=== PATIENT | male | born 1945 | race Caucasian/White ===

== ENCOUNTER 2020-03-25 08:23 | Emergency (ER) | payer MEDICARE, SELFPAY ==
--- NOTE | ~2020-03-25 | XR_ITS ---
XR hand RT min 3V DATE: 03/25/2020 08:54 INDICATION: Injury at third through fifth digits. Right hand swelling, bruising TECHNIQUE: 3 views COMPARISON: None FINDINGS: There is a slightly dorsally displaced linear oblique fracture of the proximal shaft of the fourth metacarpal bone. No other fracture or any dislocation is evident. IMPRESSION: Fracture of proximal shaft of fourth metacarpal bone Reviewed, dictated and finalized at location A.
[2020-03-25 08:27] VITALS: BP 175/69; PULSE 79; RESP 18; TEMP 36.2; O2SAT 100
--- NOTE | 2020-03-25 10:08 | ED.UPPEXIN ---
HPI - Extremity Injury (Upper) General Chief Complaint: Extremity Injury, Upper Stated Complaint: finger injury Time Seen by Provider: 03/25/20 08:38 History of Present Illness HPI narrative: Patient is a 74-year-old male who presents the ER with right hand pain. States he was walking when he tripped and fell with an outstretched hand. His fingers got caught and he thinks he hyperextended against a piece of furniture. This occurred last night. He did not strike his head or lose consciousness. He had increased discomfort in his fourth finger today so he came in for further evaluation. No new numbness or tingling. Range of motion intact. Related Data Allergies Allergy/AdvReac Type Severity Reaction Status Date / Time Penicillins Allergy Mild Unknown Verified 03/25/20 10:10 amoxicillin Allergy Unknown SOB Verified 03/25/20 10:10 clavulanic acid Allergy Unknown SOB Verified 03/25/20 10:10 Cat Dander Allergy Mild Sneezing Uncoded 03/25/20 10:10 Dust Allergy Mild Sneezing Uncoded 03/25/20 10:10 POLLENS Allergy Mild Sneezing Uncoded 03/25/20 10:10 SHELLFISH Allergy Mild Unknown Uncoded 03/25/20 10:10 Review of Systems Review of Systems: All systems reviewed & are unremarkable except as noted in HPI and below Musculoskeletal: Musculoskeletal: Reports arthralgias and Reports joint swelling PMFSH Past Medical History Medical History (Updated 03/25/20 @ 10:12 by Natan Carl MD) Hyperlipidemia Hypertension Surgical History Surgical History (Updated 03/25/20 @ 10:10 by Natan Carl MD) H/O bilateral hip replacements Hx of tonsillectomy S/P trigger finger release Social History Social History (Updated 03/25/20 @ 10:10 by Natan Carl MD) Smoking status: Never smoker Gender identity (if verbalized by the patient): Male Exam Narrative: Exam Narrative: GENERAL: Well-appearing, well-nourished, and in no acute distress. HEAD: Normocephalic, atraumatic. EXTREMITIES: Focused exam of the right hand shows bruising over the proximal phalanx of the fourth digit with swelling at the PIP. Digits 3 through 5 have normal range of motion at the DIP/PIP/MCP with isolation of each joint. There is mild tenderness over the proximal hand dorsally. Normal radial pulse. SKIN: Warm, dry, no rash. NEURO: No focal deficits. Alert and oriented x3. PSYCH: Normal mood and affect. Course Course Emergency Course: Patient informed of results. Discharge home. Will give name of hand surgery in the nursing but he has a hand surgeon he sees across [place]. He has been provided with a copy of his x-rays. Vital Signs Vital signs: Vital Signs Temperature 97.1 F L 03/25/20 08:27 Pulse Rate 79 03/25/20 08:27 Respiratory Rate 18 03/25/20 08:27 Blood Pressure 175/69 H 03/25/20 08:27 Pulse Oximetry 100 03/25/20 08:27 Temperature 97.1 F L 03/25/20 08:27 Pulse Rate 79 03/25/20 08:27 Respiratory Rate 18 03/25/20 08:27 Blood Pressure 175/69 H 03/25/20 08:27 Pulse Oximetry 100 03/25/20 08:27 Procedures Orthopedic Splinting/Casting Injury #1: Splinting/Casting Date: 03/25/20 Splinting/Casting Time: 10:11 Side: right Upper Extremity Injury Location: wrist Upper Extremity Immobilizer: ulnar gutter Splint: customized in ED OCL: ulnar gutter Pre-Procedure Neuro Vascular Exam: normal Post-Procedure Neuro Vascular Exam: normal Additional Comments: Applied by the office automation technician. MDM - Extremity Injury (Upper) Imaging Data Radiologist's impression: ITS Impressions Hand X-Ray 03/25/20 08:57 IMPRESSION: Fracture of proximal shaft of fourth metacarpal bone Discharge Plan Discharge Clinical Impression: Fracture of metacarpal Patient Disposition: Home, Self-Care Condition: Stable Instructions: Hand Fracture (ED) Additional Instructions: Return the ER if you suffer new injury, you have chest pain or shortness of breat
[2020-03-25 10:30] VITALS: BP 165/76; PULSE 66; RESP 16; O2SAT 98
== END 2020-03-25 10:30 | disposition home or self-care (01) ==
PROVIDERS: Emergency Provider Emergency Medicine
DX: S62.324A Displaced fracture of shaft of fourth metacarpal bone, right hand, initial encounter for closed fracture (principal); E78.5 Hyperlipidemia, unspecified; I10 Essential (primary) hypertension; Z96.643 Presence of artificial hip joint, bilateral; W01.190A Fall on same level from slipping, tripping and stumbling with subsequent striking against furniture, initial encounter
CPT/HCPCS: 29125; 73130; 99284; A4565

== ENCOUNTER 2021-06-20 11:18 | Emergency (ER) | payer MEDICARE, SELFPAY ==
[2021-06-20 11:27] VITALS: BP 170/73; PULSE 67; RESP 16; TEMP 36.6; O2SAT 99
--- NOTE | 2021-06-20 12:12 | ED.SOB ---
HPI - SOB/Dyspnea General Chief Complaint: Shortness of Breath/Dyspnea Stated Complaint: SOB/TIRED Source: patient and RN notes reviewed Mode of arrival: ambulatory History of Present Illness HPI Narrative: This is a 75-year-old male that presented to our urgent care for Covid testing and also complaints of shortness of breath along with fatigue and nasal congestion. According to patient he went to a wedding out of town on Friday he is experienced shortness of air breath and fatigue while he was out of town. Patient has been fully vaccinated and notes that he has not experience short of breath since he have return. He believe that his shortness of breath could have been caused by the environment. The patient denies SOB, CP, palpitation, extremity numbness, lightheadedness, dizziness, constipation, diarrhea, chills, or fever. Related Data Home Medications Medication Instructions Recorded Confirmed amlodipine 06/20/21 atorvastatin 06/20/21 Allergies Allergy/AdvReac Type Severity Reaction Status Date / Time Penicillins Allergy Mild Unknown Verified 03/25/20 10:10 amoxicillin Allergy Unknown SOB Verified 03/25/20 10:10 clavulanic acid Allergy Unknown SOB Verified 03/25/20 10:10 Cat Dander Allergy Mild Sneezing Uncoded 03/25/20 10:10 Dust Allergy Mild Sneezing Uncoded 03/25/20 10:10 POLLENS Allergy Mild Sneezing Uncoded 03/25/20 10:10 SHELLFISH Allergy Mild Unknown Uncoded 03/25/20 10:10 Review of Systems Review of Systems: A 14 organ system Review of Systems was performed and pertinent positives included in the HPI, otherwise remaining ROS is negative. [facility] Past Medical History Medical History (Updated 06/20/21 @ 12:12 by LUIS James) Hyperlipidemia Hypertension Surgical History Surgical History (Updated 03/25/20 @ 10:10 by Natan Carl MD) H/O bilateral hip replacements Hx of tonsillectomy S/P trigger finger release Family History Family History (Updated 06/20/21 @ 12:15 by LUIS James) Other Family history non-contributory Social History Social History (Updated 03/25/20 @ 10:10 by Natan Carl MD) Smoking status: Never smoker Gender identity (if verbalized by the patient): Male Exam Narrative: GENERAL: This is a well-nourished, well-developed patient, in no apparent distress. HEAD: normocephalic, atraumatic. EYES: PERRL. Sclera clear/white. Vision is grossly intact. EARS: External ears normal, auditory canals clear and without drainage, TMs normal without perforation. Hearing grossly intact. NOSE: External nose normal with no obvious nasal discharge, nares without redness, no rhinorrhea. THROAT: Mucous membranes moist, posterior pharynx clear. NECK: Neck supple, non-tender without lymphadenopathy, masses or thyromegaly. CARDIOVASCULAR: Regular rate and rhythm without murmurs, gallops, or rubs. RESPIRATORY: Clear to auscultation. Breath sounds equal bilaterally. No wheezes, rales, or rhonchi. GASTROINTESTINAL: Abdomen soft, non-tender, nondistended. Bowel sounds are active. No hepato-splenomegaly, or palpable masses. No guarding. SKIN: warm, intact with no suspicious lesions or rash, good texture and turgor. NEURO: awake, alert, and oriented to person, place and time. There were no obvious focal neurologic abnormalities. Steady gait EXTREMITIES: Normal range of motion. No edema. No calf tenderness. Negative Homans sign bilaterally. BACK: Nontender without deformity or crepitance. No flank tenderness. Course Course Emergency Course: Patient Covid negative discharged with albuterol and Sudafed for congestion Vital Signs Vital signs: Vital Signs Temperature 97.8 F 06/20/21 11:27 Pulse Rate 67 06/20/21 11:27 Respiratory Rate 16 06/20/21 11:27 Blood Pressure 170/73 H 06/20/21 11:27 Pulse Oximetry 99 06/20/21 11:27 Temperature 97.8 F 06/20/21 11:27 Pulse Rate 67 06/20/21 11:27 Respiratory Rate 16 06/20/21 11:27 Blood Pr
== END 2021-06-20 12:19 | disposition home or self-care (01) ==
PROVIDERS: Emergency Provider Nurse Practitioner
DX: T78.40XA Allergy, unspecified, initial encounter (principal); Z20.822 Contact with and (suspected) exposure to COVID-19; E78.5 Hyperlipidemia, unspecified; I10 Essential (primary) hypertension; Z96.643 Presence of artificial hip joint, bilateral
CPT/HCPCS: 87426; 99213; C9803; G0463

== ENCOUNTER 2023-06-27 08:08 | Emergency (ER) | payer MEDICARE, SELFPAY ==
--- NOTE | 2023-06-27 08:19 | ED.EXTPRO ---
HPI - Extremity Problem General Chief complaint: Extremity Problem,Nontraumatic Stated complaint: POCKET OF FLUID ON ANKLE Time Seen by Provider: 06/27/23 08:21 Source: patient Mode of arrival: ambulatory Limitations: no limitations History of Present Illness HPI Narrative: 77-year-old male presented for complaint of ?pocket of fluid? to the left inner ankle. First noticed yesterday. Unsure of how he developed a blister, he denies known injury, friction, or insect bite, or rash surrounding the site. Denies pain, itching, or drainage from the site. He denies lower extremity edema. Denies any other sites of skin concerns. Endorses history of chronically dry skin and uses Cerave lotion twice daily. He has not applied anything else to the site. Scheduled with pcp in 3 days. Related Data Home Medications Medication Instructions Recorded Confirmed amlodipine 5 mg tablet 5 mg PO DAILY 06/20/21 06/27/23 atorvastatin 40 mg tablet 40 mg PO DAILY 06/20/21 06/27/23 fluticasone propionate 50 50 spray intranasal BID 06/27/23 06/27/23 mcg/actuation nasal spray,suspension Allergies Allergy/AdvReac Type Severity Reaction Status Date / Time Penicillins Allergy Mild Unknown Verified 06/27/23 08:17 amoxicillin Allergy Unknown SOB Verified 06/27/23 08:17 clavulanic acid Allergy Unknown SOB Verified 06/27/23 08:17 Cat Dander Allergy Mild Sneezing Uncoded 06/27/23 08:17 Dust Allergy Mild Sneezing Uncoded 06/27/23 08:17 POLLENS Allergy Mild Sneezing Uncoded 06/27/23 08:17 SHELLFISH Allergy Mild Unknown Uncoded 06/27/23 08:17 Review of Systems Review of Systems: CONSTITUTIONAL: Denies body aches, fever, chills, or sweats. EYES: Denies visual changes, redness, or discharge. ENT: Denies rhinorrhea, congestion CARDIOVASCULAR: Denies chest pain, palpitations, or edema. RESPIRATORY: Denies cough or dyspnea. GASTROINTESTINAL: Denies abdominal pain, nausea, vomiting, or diarrhea. SKIN: reports blister to left ankle MUSCULOSKELETAL: Denies back pain, joint pain, or myalgia. NEUROLOGIC: Denies headache, numbness, tingling, or weakness. FOR[facility]LY [facility], [facility] Past Medical History Medical History Hyperlipidemia Hypertension Surgical History Surgical History H/O bilateral hip replacements Hx of tonsillectomy S/P trigger finger release Family History Family History Other Family history non-contributory Social History Social History Smoking status: Never smoker Gender identity (if verbalized by the patient): Male Comments At time of signature, I have reviewed and agree with nursing past medical, surgical, social and family history unless otherwise noted. Please see nursing chart for further information. There is no relevant family history pertinent to the presenting complaint Exam Narrative: GENERAL: Well-appearing HEAD: Normocephalic, atraumatic. EYES: conjunctivae clear, and EOMI. ENT: Mucous membranes moist. Oropharynx without edema, erythema or lesions. NECK: Supple. No lymphadenopathy CHEST: Clear to auscultation. HEART: Regular rate and rhythm. SKIN: Warm, dry. left medial ankle with 4cmx2.5cm fluid filled bulla, skin intact, no drainage, no surrounding erythema or rash; no purulence or induration; nontender. No swelling to ankles. NEURO: Alert and oriented x3. Course Course Emergency Course: Patient is aware of diagnosis, understands and agrees to treatment plan. Anticipatory guidance given. Patient agrees to follow-up as directed and is aware of reasons to seek care at the emergency department. Portions of this record may have been created with voice recognition software Level of Care: Express Care Visit Vital Signs Vital signs: Reviewed MDM - Extremity (Nontraumatic) MDM Narrative
[2023-06-27 08:21] VITALS: BP 127/70; PULSE 87; RESP 16; TEMP 36.2; O2SAT 97
== END 2023-06-27 08:48 | disposition home or self-care (01) ==
PROVIDERS: Emergency Provider Nurse Practitioner Family
DX: R23.8 Other skin changes (principal); E78.5 Hyperlipidemia, unspecified; I10 Essential (primary) hypertension; Z96.643 Presence of artificial hip joint, bilateral
CPT/HCPCS: 99213; G0463

== ENCOUNTER 2023-11-13 08:21 | Emergency (ER) | payer MEDICARE, SELFPAY ==
--- NOTE | ~2023-11-13 | XR_ITS ---
XR knee LT 3V 11/13/2023 09:35 Indication: Left knee pain Procedure: 3 views left knee Comparison: No prior studies for comparison. Findings: There is moderate tricompartment osteoarthritis. There is chondrocalcinosis. Small joint ef fusion. No fracture or traumatic malalignment. There are loose bodies posterior to the joint space. S mall osteochondral defect lateral tibial plateau. Small lytic defect medial aspect on the femur on th e patellar view involving the cortex. Impression: 1: Moderate osteoarthritis of the left knee. 2: Small osteochondral defect lateral tibial plateau. 3: Chondrocalcinosis. 4: Small lytic defects medial aspect of the femur seen on the patellar view. Consider myeloma and me tastatic disease in the appropriate clinical setting. Reviewed, dictated and finalized at location L. REEL CUTTER Impression: 1: Moderate osteoarthritis of the left knee. 2: Small osteochondral defect lateral tibial plateau. 3: Chondrocalcinosis. 4: Small lytic defects medial aspect of the femur seen on the patellar view. C onsider myeloma and metastatic disease in the appropriate clinical setting.
--- NOTE | 2023-11-13 08:24 | ED.GENADULT ---
HPI - General Adult General Chief complaint: Extremity Problem,Nontraumatic Stated complaint: Leg Pain Time Seen by Provider: 11/13/23 09:06 Source: patient, RN notes reviewed and old records reviewed Mode of arrival: ambulatory Limitations: no limitations History of Present Illness HPI narrative: 78-year-old male presents to the [facility] with complaints of leg pain. Patient reports pain to the lateral and anterior portion of the knee, radiating up his leg and down his leg. Patient reports he did have back pain on the left side as well. Was lifting and walking on the , 2 days ago. Denies any significant back pain currently. Is using a walker states he does not have issues walking but is using it just for extra support so he does not fall. Patient is concerned that it is due to his Cipro he took for a sinus infection, Patient was prescribed Cipro on the 29 of October by [facility] nose [facility] throat due to a prolonged sinus infection. Patient has full range of motion of the knee, ankle. No foot drop noted. No Achilles tendon tenderness. No swelling noted. Tender palpation to the lateral aspect. Patient denies any trauma No erythema, ecchymosis or swelling noted. Patient states that he tried calling his primary care provider at [facility], was instructed to go to their ortho clinic but states he came here because it was closer any does not want [place] the bridge. Treatments prior to arrival: none Related Data Home Medications Medication Instructions Recorded Confirmed amlodipine 5 mg tablet 5 mg PO DAILY 06/20/21 11/13/23 atorvastatin 40 mg tablet 40 mg PO DAILY 06/20/21 11/13/23 fluticasone propionate 50 50 spray intranasal BID 06/27/23 11/13/23 mcg/actuation nasal spray,suspension Allergies Allergy/AdvReac Type Severity Reaction Status Date / Time Penicillins Allergy Mild Unknown Verified 11/13/23 10:22 amoxicillin Allergy Unknown SOB Verified 11/13/23 10:22 clavulanic acid Allergy Unknown SOB Verified 11/13/23 10:22 ciprofloxacin AdvReac Joint Pain Verified 11/13/23 10:22 Cat Dander Allergy Mild Sneezing Uncoded 11/13/23 10:22 Dust Allergy Mild Sneezing Uncoded 11/13/23 10:22 POLLENS Allergy Mild Sneezing Uncoded 11/13/23 10:22 SHELLFISH Allergy Mild Unknown Uncoded 01/25/24 10:22 Review of Systems Review of Systems: All systems reviewed & are unremarkable except as noted in HPI and below Constitutional: Constitutional: Reports no additional constitutional complaints Eyes: Eyes: Reports no additional eye complaints ENT: Reports system reviewed and no additional complaints, except as documented Cardiovascular: Cardiovascular: Reports no additional cardiovascular complaints, Denies chest pain and Denies dyspnea Respiratory: Respiratory: Reports no additional respiratory complaints, Denies chest congestion, Denies cough and Denies dyspnea Gastrointestinal: Gastrointestinal: Reports no additional gastrointestinal complaints, Denies abdominal pain, Denies nausea and Denies vomiting Musculoskeletal: Musculoskeletal: Reports as per HPI, Reports arthralgias, Denies joint swelling, Denies limited range of motion, Denies muscle weakness and Denies numbness Integumentary/Breasts: Skin/Breast: Reports system reviewed and no additional complaints, except as docu Neurologic: Reports system reviewed and no additional complaints, except as documented Psychiatric: Psychiatric: Reports no additional psychiatric complaints Allergic/Immunologic: Allergic/Immunologic: Reports no additional allergic/immunologic complaints PMFSH Past Medical History Medical History Hyperlipidemia Hypertension Surgical History Surgical History H/O bilateral hip replacements Hx of tonsillectomy S/P trigger finger release Family History Family History Other Family history non-contributo
[2023-11-13 08:58] VITALS: BP 154/77; PULSE 75; RESP 16; TEMP 36.5; O2SAT 98
== END 2023-11-13 10:19 | disposition home or self-care (01) ==
PROVIDERS: Emergency Provider Nurse Practitioner
DX: M17.12 Unilateral primary osteoarthritis, left knee (principal); M11.262 Other chondrocalcinosis, left knee; E78.5 Hyperlipidemia, unspecified; I10 Essential (primary) hypertension
CPT/HCPCS: 73562; 99213; G0463

== ENCOUNTER → 2023-11-24 09:01 | Outpatient (CLI) | payer MEDICARE, SELFPAY ==
--- NOTE | ~2023-11-24 | MR_ITS ---
EXAMINATION: MR knee LT wo con DATE: 11/24/2023 09:43 INDICATION: Left knee pain TECHNIQUE: Magnetic resonance imaging (MRI) of the left knee was performed without intravenous contra st. Sequences included coronal PD-weighted FSE, coronal PD-weighted FS FSE, sagittal T2-weighted FSE , sagittal PD-weighted FS FSE and axial PD weighted fat saturated FSE. COMPARISON: None. FINDINGS: Medial compartment: With medial extrusion of the medial meniscal body. Complex medial meniscal tear at the posterior root and lateral side of the posterior horn of the medial meniscus. There appears be a small meniscal fl ap extending superiorly from the region of the posterior root. Partial-thickness chondral ulceration with mild loss of cartilage thickness and chondral surface regularity along the medial tibial plateau and along the lateral margin of the anterior weightbearing medial femoral condyle. Lateral compartment: There is lateral extrusion of the lateral meniscal body. There is a complex tear involving the executive vice president of sales ior horn and posterior body of the lateral meniscus which includes a longitudinal tear plane extendin g to the inferior articular surface and with a macerated appearance at the junction of the body and p osterior horn. . Near full-thickness chondral ulceration with at the posterior central aspect of the lateral tibial plateau with underlying marrow edema and 12 x 11 x 10 mm subchondral cystlike change. Mild partial-thickness cartilage loss along the anterior weightbearing lateral femoral condyle. There is a small partial-thickness chondral fissure at the lateral margin of the posterior weightbearing l ateral femoral condyle. Patellofemoral compartment: Deep chondral fissure with underlying subarticular cystlike change at the superolateral aspect of the medial facet near the apical ridge. There is partial thickness chondral ulceration and deep fissurin g with additional scattered reticular edema-like and cystlike changes at the central to lateral aspec t of the lateral patellar facet. Trochlear cartilage is relatively preserved. Ligaments and tendons: Anterior and posterior cruciate ligaments are normal. The medial collateral ligament and fibular he ateral ligament complex are normal. Mild tendinopathy at the distal quadriceps tendon. The patellar t endon is normal. Mild tendinopathy and longitudinal split tearing at the distal semimembranosus tendo n. The visualized medial and lateral hamstring tendons as well as the iliotibial band are otherwise n ormal. Fluid: Small joint effusion at the lateral gutter of the suprapatellar pouch. There is also mild scattered s ynovitis. There is a small collection of fluid situated between the anteromedial margin of the semime mbranosus tendon and deep to the pes anserinus. There are few small loose bodies within this fluid co llection is most likely ganglion cyst although differential would include less likely pes anserinus b ursitis. No intra-articular loose osteochondral bodies identified. Osseous/other: Bone alignment is normal. No fracture or pathologic marrow replacing process. IMPRESSION: 1. Complex tears of the posterior horns of both the medial and lateral menisci. 2. Tricompartmental osteoarthritis at the left knee, mild to moderate severity in the medial compartm ent and mild in the lateral and patellofemoral compartments, each with regions of high-grade chondrom alacia. 3. Mild tendinopathy and longitudinal split tearing of the distal semimembranosus tendon. 4. Mild distal quadriceps tendinopathy. Reviewed, dictated and finalized at location A. STATION OPERATOR
== END ==
PROVIDERS: PCP Family Medicine; Visit Provider Orthopaedic Surgery
DX: M53.3 Sacrococcygeal disorders, not elsewhere classified (principal); M17.12 Unilateral primary osteoarthritis, left knee; S83.272A Complex tear of lateral meniscus, current injury, left knee, initial encounter; S83.232A Complex tear of medial meniscus, current injury, left knee, initial encounter; X58.XXXA Exposure to other specified factors, initial encounter
CPT/HCPCS: 73721

== ENCOUNTER 2024-01-14 14:13 | Outpatient (CLI) | payer MEDICARE, SELFPAY ==
[2024-01-14 19:01] LABS: Alanine Aminotransferase 41 U/L (6-50); Alkaline Phosphatase 81 U/L (38-126); Anion Gap 5 mmol/L (4-12); Aspartate Amino Transferase 51 U/L (17-59); Bilirubin,Total 1.4 mg/dL (0.2-1.3); Blood Urea Nitrogen 24 mg/dL (9-20); Calcium 9.6 mg/dL (8.4-10.2); Carbon Dioxide 30 mmol/L (22-30); Chloride 104 mmol/L (98-107); Estimated Glomerular Filt Rate > 60; Glucose 98 mg/dL (65-110); Potassium 4.4 mmol/L (3.4-5.0); Sodium 139 mmol/L (137-145)
== END 2024-01-14 14:14 | disposition home or self-care (01) ==
LOC: ANHGOSHLAB 14:15
PROVIDERS: PCP Family Medicine; Visit Provider Family Medicine
DX: E55.9 Vitamin D deficiency, unspecified (principal); I10 Essential (primary) hypertension
CPT/HCPCS: 36415; 80053; 82306

== ENCOUNTER 2024-04-05 20:07 | Emergency (ER) | payer MEDICARE, SELFPAY ==
--- NOTE | ~2024-04-05 | XR_ITS ---
EXAM: XR knee RT min 4V DATE: 04/05/2024 21:03 HISTORY: Pain, swelling POSTERIOR RIGHT KNEE . COMPARISON: None available. FINDINGS: Decreased mineralization. No fracture or dislocation. No lytic or blastic lesion. 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 No erosion or periosteal lisa nge. Soft tissues within normal limits. IMPRESSION: No acute osseous finding in the right knee. Reviewed, dictated and finalized at location K.
[2024-04-05 20:26] VITALS: BP 166/77; PULSE 84; RESP 15; TEMP 36.5; O2SAT 98
--- NOTE | 2024-04-05 23:04 | ED.EXTPRO ---
HPI - Extremity Problem General Chief complaint: Extremity Problem,Nontraumatic Stated complaint: hamstring pain, hx of sciatica Time Seen by Provider: 04/05/24 22:16 Source: patient Mode of arrival: ambulatory Limitations: no limitations History of Present Illness HPI Narrative: This is a 78 year old male that presents to the ER for right knee pain. Ongoing over the last month. No recent injury or trauma. Pain is worse with ambulation and relieved with rest. Reports he is currently trying to get referral to an orthopedics doctor for further care. Denies fever, erythema, edema, decreased ROM or numbness. Related Data Home Medications Medication Instructions Recorded Confirmed amlodipine 5 mg tablet 5 mg PO DAILY 06/20/21 01/14/24 fluticasone propionate 50 50 spray intranasal BID 06/27/23 01/14/24 mcg/actuation nasal spray,suspension cholecalciferol (vitamin D3) 125 125 mcg PO DAILY 11/18/23 01/14/24 mcg (5,000 unit) capsule levocetirizine 5 mg tablet 5 mg PO DAILY 11/18/23 01/14/24 pclnrpka-vuw-igqve acid 0.4 1 tablet PO DAILY 11/18/23 01/14/24 mg-lycopene 300 mcg-lutein 250 mcg tablet (Centrum Silver) polyethylene glycol 3350 17 17 g PO DAILY 11/18/23 01/14/24 gram/dose oral powder (Miralax) turmeric root extract 500 mg 500 mg PO DAILY 11/18/23 01/14/24 capsule atorvastatin 40 mg tablet 40 mg PO QHS 01/14/24 01/14/24 testosterone cypionate 200 mg/mL 100 mg IM WEEKLY 01/14/24 01/14/24 intramuscular oil Allergies Allergy/AdvReac Type Severity Reaction Status Date / Time Penicillins Allergy Mild Unknown Verified 04/05/24 20:09 amoxicillin Allergy Unknown SOB Verified 04/05/24 20:09 cat dander Allergy Unknown Unknown Verified 04/05/24 20:09 clavulanic acid Allergy Unknown SOB Verified 04/05/24 20:09 house dust Allergy Unknown Unknown Verified 04/05/24 20:09 pollen extracts Allergy Unknown Unknown Verified 04/05/24 20:09 shellfish derived Allergy Unknown Unknown Verified 04/05/24 20:09 ciprofloxacin AdvReac Joint Pain Verified 04/05/24 20:09 Review of Systems Review of Systems: CONSTITUTIONAL: Denies fever SKIN: Denies rash MUSCULOSKELETAL: Reports joint pain, and myalgia. NEUROLOGIC: Denies numbness, or weakness. All systems reviewed & are unremarkable except as noted in HPI and below PMFSH Past Medical History Medical History Allergic rhinitis Chronic eczematous otitis externa of left ear Chronic venous insufficiency of lower extremity Hyperlipidemia Hypertension Hypogonadism in male Osteoarthritis Vitamin D deficiency Surgical History Surgical History History of cholecystectomy (~2017) History of right hip replacement (~2016) History of total left hip replacement (~2014) Hx of tonsillectomy (~1950) S/P trigger finger release b/l multiple - 2017, 2018 Family History Family History Other Cancer Family history non-contributory Social History Social History Smoking status: Former smoker Alcohol intake: current Alcohol use details: 1 glass of wine every 2 weeks Substance use: never Substance use type: does not use Do You Feel Safe in your Home?: Yes Lack of Transportation: No Lack of Food: Never True Current Housing: I Have Housing Concerned About Future Housing: No Difficulty Paying Gas/Electric Bills: No Difficulty Paying for Meds: No Currently Unemployed: No Education: Master's Degree or Higher Difficulty w/ Childcare or Family Care: No Living arrangements: with family Occupation/Education: retired Additional occupation/education comments: 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
[2024-04-05] MEDS: TIZANIDINE HCL 2 MG TABLET PO (23:26)
== END 2024-04-05 23:32 | disposition home or self-care (01) ==
PROVIDERS: Emergency Provider Physician Assistant; PCP Family Medicine
DX: M25.561 Pain in right knee (principal); E78.5 Hyperlipidemia, unspecified; I10 Essential (primary) hypertension; M19.90 Unspecified osteoarthritis, unspecified site
CPT/HCPCS: 73564; 99283; A9270

== ENCOUNTER 2024-04-10 14:18 | Emergency (ER) | payer MEDICARE, SELFPAY ==
[2024-04-10 14:45] VITALS: BP 151/72; PULSE 77; RESP 16; TEMP 37.1; O2SAT 98
--- NOTE | 2024-04-10 14:45 | ED.EXTPRO ---
HPI - Extremity Problem General Chief complaint: Extremity Problem,Nontraumatic Stated complaint: Right leg pain Time Seen by Provider: 04/10/24 14:48 Source: patient Mode of arrival: ambulatory Limitations: no limitations History of Present Illness HPI Narrative: Herson is a 78-year-old male patient presenting to the clinic today with complaints of right knee pain x6 days. He reports he was seen in the ER on Friday and a x-ray was completed and showed no sign of fracture or malalignment- did show some osteoarthritis- questionable for pseudogout. Patient is taking medrol dose pack and tylenol for pain. Seen his PCP on and she gave him a Rx for tizanidine as he was c/o pain over his hamstring. Denies any known knee injury. Currently states that his is pain free but pain comes and goes- is buring/throbbing pain. Has pain over different parts of his knee at different times and sometimes all at one. States pain can be over the posterior knee, lateral, anterior/inferior knee, and medial knee. Pain is worse with ambulation. Sitting relieves the pain. Feels at times that his knee catches or is going to give out. Related Data Home Medications Medication Instructions Recorded Confirmed amlodipine 5 mg tablet 5 mg PO DAILY 06/20/21 04/07/24 fluticasone propionate 50 50 spray intranasal BID 06/27/23 04/07/24 mcg/actuation nasal spray,suspension cholecalciferol (vitamin D3) 125 125 mcg PO DAILY 11/18/23 04/07/24 mcg (5,000 unit) capsule levocetirizine 5 mg tablet 5 mg PO DAILY 11/18/23 04/07/24 prbrxlpv-ved-xnxup acid 0.4 1 tablet PO DAILY 11/18/23 04/07/24 mg-lycopene 300 mcg-lutein 250 mcg tablet (Centrum Silver) polyethylene glycol 3350 17 17 g PO DAILY 11/18/23 04/07/24 gram/dose oral powder (Miralax) turmeric root extract 500 mg 500 mg PO DAILY 11/18/23 04/07/24 capsule atorvastatin 40 mg tablet 40 mg PO QHS 01/14/24 04/07/24 testosterone cypionate 200 mg/mL 100 mg IM WEEKLY 01/14/24 04/07/24 intramuscular oil Allergies Allergy/AdvReac Type Severity Reaction Status Date / Time Penicillins Allergy Mild Unknown Verified 04/07/24 09:27 amoxicillin Allergy Unknown SOB Verified 04/07/24 09:27 cat dander Allergy Unknown Unknown Verified 04/07/24 09:27 clavulanic acid Allergy Unknown SOB Verified 04/07/24 09:27 house dust Allergy Unknown Unknown Verified 04/07/24 09:27 pollen extracts Allergy Unknown Unknown Verified 04/07/24 09:27 shellfish derived Allergy Unknown Unknown Verified 04/07/24 09:27 ciprofloxacin AdvReac Joint Pain Verified 04/07/24 09:27 Review of Systems Review of Systems: Pertinent positives per HPI. Patient denies any fever, chills, rash, headache, visual changes, dizziness, cough, runny nose, sore throat, shortness of breath, chest pain, palpitations, nausea, vomiting, diarrhea, constipation, abdominal pain, or any urinary issues. [facility] Past Medical History Medical History Allergic rhinitis Chronic eczematous otitis externa of left ear Chronic venous insufficiency of lower extremity Hyperlipidemia Hypertension Hypogonadism in male Osteoarthritis Vitamin D deficiency Surgical History Surgical History History of cholecystectomy (~2017) History of right hip replacement (~2016) History of total left hip replacement (~2014) Hx of tonsillectomy (~1950) S/P trigger finger release b/l multiple - 2018, 2019 Family History Family History Other Cancer Family history non-contributory Social History Social History Smoking status: Former smoker Alcohol intake: current Alcohol use details: 1 glass of wine every 2 weeks Substance use: never Substance use type: does not use Do You Feel Safe in your Home?: Yes Lack of Transportation: No
== END 2024-04-10 15:38 | disposition home or self-care (01) ==
PROVIDERS: Emergency Provider Nurse Practitioner Family; PCP Nurse Practitioner
DX: M25.861 Other specified joint disorders, right knee (principal); M17.11 Unilateral primary osteoarthritis, right knee; Z87.891 Personal history of nicotine dependence; E78.5 Hyperlipidemia, unspecified; I10 Essential (primary) hypertension; E55.9 Vitamin D deficiency, unspecified; Z96.643 Presence of artificial hip joint, bilateral
CPT/HCPCS: 99212; G0463

== ENCOUNTER 2024-05-13 12:32 | Emergency (ER) | payer MEDICARE, SELFPAY ==
[2024-05-13 12:46] VITALS: BP 142/75; PULSE 76; RESP 16; TEMP 36.6; O2SAT 99
--- NOTE | 2024-05-13 13:03 | ED.ABDPAIN ---
HPI - Abdominal Pain General Chief Complaint: Abdominal Pain Stated Complaint: Stomach Pain Time Seen by Provider: 05/13/24 12:47 Source: patient and RN notes reviewed Mode of arrival: ambulatory Limitations: no limitations History of Present Illness HPI narrative: Patient presents today with a 4 day history of epigastric abdominal pain, nausea, lightheadedness, decreased appetite. Denies vomiting, urinary symptoms, fever. Reports the pain as sharp and constant. No history of GERD or gastritis. History of cholecystectomy and pancreatitis. States he has had some constipation issues and had been taking 2-3 doses of MiraLax for the last couple of days, which did help with his constipation, but not the abdominal pain. Related Data Home Medications Medication Instructions Recorded Confirmed amlodipine 5 mg tablet 5 mg PO DAILY 06/20/21 05/13/24 fluticasone propionate 50 50 spray intranasal BID 06/27/23 05/13/24 mcg/actuation nasal spray,suspension cholecalciferol (vitamin D3) 125 125 mcg PO DAILY 11/18/23 05/13/24 mcg (5,000 unit) capsule levocetirizine 5 mg tablet 5 mg PO DAILY 11/18/23 05/13/24 ryxdwewb-bas-ecufb acid 0.4 1 tablet PO DAILY 11/18/23 05/13/24 mg-lycopene 300 mcg-lutein 250 mcg tablet (Centrum Silver) polyethylene glycol 3350 17 17 g PO DAILY 11/18/23 05/13/24 gram/dose oral powder (Miralax) turmeric root extract 500 mg 500 mg PO DAILY 11/18/23 05/07/24 capsule atorvastatin 40 mg tablet 40 mg PO QHS 01/14/24 05/13/24 testosterone cypionate 200 mg/mL 100 mg IM WEEKLY 01/14/24 05/13/24 intramuscular oil Allergies Allergy/AdvReac Type Severity Reaction Status Date / Time Penicillins Allergy Mild Unknown Verified 05/13/24 12:42 amoxicillin Allergy Unknown SOB Verified 05/13/24 12:42 cat dander Allergy Unknown Unknown Verified 05/13/24 12:42 clavulanic acid Allergy Unknown SOB Verified 05/13/24 12:42 house dust Allergy Unknown Unknown Verified 05/13/24 12:42 pollen extracts Allergy Unknown Unknown Verified 05/13/24 12:42 shellfish derived Allergy Unknown Unknown Verified 05/13/24 12:42 ciprofloxacin AdvReac Joint Pain Verified 05/13/24 12:42 Review of Systems Review of Systems: CONSTITUTIONAL: Denies body aches, fever, chills, or sweats. EYES: Denies visual changes, redness, or discharge. ENT: Denies rhinorrhea, congestion, sore throat, or otalgia. CARDIOVASCULAR: Denies chest pain, palpitations, or edema. RESPIRATORY: Denies cough or dyspnea. GASTROINTESTINAL: Denies vomiting, or diarrhea.+ abdominal pain, nausea, decreased appetite GENITOURINARY: Denies dysuria or hematuria. SKIN: Denies rash, itching, or wounds. MUSCULOSKELETAL: Denies back pain, joint pain, or myalgia. NEUROLOGIC: Denies headache, numbness, tingling, or weakness.+ lightheadedness PSYCH: Denies depression or anxiety. [facility] Past Medical History Medical History Allergic rhinitis Chronic eczematous otitis externa of left ear Chronic venous insufficiency of lower extremity Hyperlipidemia Hypertension Hypogonadism in male Osteoarthritis Vitamin D deficiency Surgical History Surgical History History of cholecystectomy (~2017) History of right hip replacement (~2016) History of total left hip replacement (~2015) Hx of tonsillectomy (~1950) S/P trigger finger release b/l multiple - 2017, 2018 Family History Family History Other Cancer Family history non-contributory Social History Social History Smoking status: Former smoker Alcohol intake: current Alcohol use details: 1 glass of wine every 2 weeks Substance use: never Substance use type: does not use Do You Feel Safe in your Home?: Yes Lack of Transportation: No Lack of Food: Never True Curren
== END 2024-05-13 13:04 | disposition short-term general hospital (02) ==
PROVIDERS: Emergency Provider Nurse Practitioner; PCP Nurse Practitioner
DX: R10.13 Epigastric pain (principal); Z87.891 Personal history of nicotine dependence; E78.5 Hyperlipidemia, unspecified; I10 Essential (primary) hypertension; M19.90 Unspecified osteoarthritis, unspecified site; E55.9 Vitamin D deficiency, unspecified; Z96.643 Presence of artificial hip joint, bilateral
CPT/HCPCS: 99212; G0463

== ENCOUNTER 2024-05-13 13:21 | Emergency (ER) | payer MEDICARE, SELFPAY ==
--- NOTE | ~2024-05-13 | CT_ITS ---
EXAMINATION: CT abdomen pelvis w con DATE: 05/13/2024 13:52 INDICATION: Upper abdominal pain. TECHNIQUE: Computed tomography (CT) of the abdomen and pelvis was performed with 100 cc Omnipaque 350 intravenous contrast. The dose-length product was 686.02 mGy-cm. Automated exposure control and iter ative reconstruction technique were employed. COMPARISON: . CT dated 08/08/2017 FINDINGS: Lung bases are unremarkable. Heart size normal. No significant pleural or pericardial effus ion. There is mild thickening of the distal aspect of the stomach and duodenum, suspicious for gastri tis. Small ulcer cannot be excluded. Fatty infiltration of the liver. Status post cholecystectomy. Th e spleen, pancreas, adrenal glands are unremarkable. There are bilateral renal cysts. No ureteral sto joanna or hydronephrosis. Nonobstructive bowel gas pattern. Colonic diverticulosis without evidence for diverticulitis. Fat-containing left inguinal hernia. There are bilateral hip arthroplasties. Severe l umbar spondylosis. IMPRESSION: 1. Probable gastritis with possible small ulcer. No evidence for perforation. Reviewed, dictated and finalized at location B.
[2024-05-13 13:22] VITALS: BP 140/74; PULSE 74; RESP 18; TEMP 36.4; O2SAT 98
[2024-05-13 13:45] LABS: Estimated CRCL calculation 47 ml/min; Estimated Glomerular Filt Rate 54
[2024-05-13 13:45] LABS: Basophils Percent Auto 0.4 % (0.2-1.2); Eosinophils Absolute Auto 0.1 K/mm3 (0-0.3); Eosinophils Percent Auto 1.1 % (0-4.4); Hematocrit 48.5 % (42.0-52.0); Hemoglobin 16.4 g/dL (14.0-18.0); Immature Granulocyte Absolute 0.04 K/mm3 (0.00-0.031); Immature Granulocyte Percent A 0.4 % (0-0.5); Lymphocytes Absolute Auto 2.02 K/mm3 (0.9-3.2); Lymphocytes Percent Auto 19.2 % (18.3-44.2); Mean Corpuscular HGB Conc 33.8 g/dl (32-36); Mean Corpuscular Hemoglobin 31.9 pg (26-34); Mean Corpuscular Volume 94.4 fl (80-100); Mean Platelet Volume 10.1 fl (7.4-10.4); Monocytes Absolute Auto 1.1 K/mm3 (0.1-0.6); Monocytes Percent Auto 10.3 % (2.6-8.5); Neutrophils Absolute Auto 7.2 K/mm3 (1.3-6.7); Neutrophils Percent Auto 68.6 % (45.5-73.1); Platelet Count Result 279 k/mm3 (150-375); Red Blood Count 5.14 M/mm3 (4.6-6.20); Red Cell Distribution Width 14.7 % (11.5-14.5); White Blood Count 10.5 K/mm3 (4.5-10.0)
[2024-05-13 13:56] LABS: Prothrombin Time 13.4 Seconds (11.1-14.7)
[2024-05-13 13:57] LABS: Partial Thromboplastin Time 26.6 Seconds (22.3-36.8)
[2024-05-13 13:58] LABS: Alanine Aminotransferase 30 U/L (6-50); Albumin Level 4.4 g/dL (3.5-5.1); Alkaline Phosphatase 88 U/L (38-126); Anion Gap 9 mmol/L (4-12); Aspartate Amino Transferase 28 U/L (17-59); Bilirubin,Total 1.5 mg/dL (0.2-1.3); Blood Urea Nitrogen 22 mg/dL (9-20); Calcium 9.6 mg/dL (8.4-10.2); Carbon Dioxide 27 mmol/L (22-30); Chloride 99 mmol/L (98-107); Estimated CRCL calculation 55 ml/min; Estimated Glomerular Filt Rate > 60; Glucose 101 mg/dL (65-110); Lipase 75 U/L (23-300); Potassium 4.5 mmol/L (3.4-5.0); Sodium 135 mmol/L (137-145)
[2024-05-13 14:01] LABS: Lactic Acid Reflex 0.9 mmol/L (0.7-2.0)
[2024-05-13] MEDS: PANTOPRAZOLE SODIUM IV 40 MG VIAL IV PUSH (14:13)
[2024-05-13] MEDS: BELLADONNA ALK/PHENOB ELIX 10 ML, MAG HYDROX/ALUMINUM HYD/SIMETH 30 ML, LIDOCAINE HCL 2... PO (14:13)
--- NOTE | 2024-05-13 14:19 | ED.ABDPAIN ---
HPI - Abdominal Pain General Chief Complaint: Abdominal Pain Stated Complaint: abd pain Time Seen by Provider: 05/13/24 13:25 History of Present Illness HPI narrative: 78-year-old male presenting to the emergency department for evaluation for persistent epigastric pain that is been ongoing for the last 4 days. Reports he does have a prior history of pancreatitis about 6 years ago. Patient states he does not drink alcohol frequently. Patient is also complaining of right-sided knee pain for which he has been taking higher than usual doses of ibuprofen for approximately last 2 weeks. Patient initially presented to urgent care and was deferred to the emergency department for further workup. Related Data Home Medications Medication Instructions Recorded Confirmed amlodipine 5 mg tablet 5 mg PO DAILY 06/20/21 05/13/24 fluticasone propionate 50 50 spray intranasal BID 06/27/23 05/13/24 mcg/actuation nasal spray,suspension cholecalciferol (vitamin D3) 125 125 mcg PO DAILY 11/18/23 05/13/24 mcg (5,000 unit) capsule levocetirizine 5 mg tablet 5 mg PO DAILY 11/18/23 05/13/24 rhfmzqvg-mjh-qrobp acid 0.4 1 tablet PO DAILY 11/18/23 05/13/24 mg-lycopene 300 mcg-lutein 250 mcg tablet (Centrum Silver) polyethylene glycol 3350 17 17 g PO DAILY 11/18/23 05/13/24 gram/dose oral powder (Miralax) turmeric root extract 500 mg 500 mg PO DAILY 11/18/23 05/07/24 capsule atorvastatin 40 mg tablet 40 mg PO QHS 01/14/24 05/13/24 testosterone cypionate 200 mg/mL 100 mg IM WEEKLY 01/14/24 05/13/24 intramuscular oil Allergies Allergy/AdvReac Type Severity Reaction Status Date / Time Penicillins Allergy Mild Unknown Verified 05/13/24 12:42 amoxicillin Allergy Unknown SOB Verified 05/13/24 12:42 cat dander Allergy Unknown Unknown Verified 05/13/24 12:42 clavulanic acid Allergy Unknown SOB Verified 05/13/24 12:42 house dust Allergy Unknown Unknown Verified 05/13/24 12:42 pollen extracts Allergy Unknown Unknown Verified 05/13/24 12:42 shellfish derived Allergy Unknown Unknown Verified 05/13/24 12:42 ciprofloxacin AdvReac Joint Pain Verified 05/13/24 12:42 Review of Systems Review of Systems: All systems reviewed & are unremarkable except as noted in HPI and below PMFSH Past Medical History Medical History Allergic rhinitis Chronic eczematous otitis externa of left ear Chronic venous insufficiency of lower extremity Hyperlipidemia Hypertension Hypogonadism in male Osteoarthritis Vitamin D deficiency Surgical History Surgical History History of cholecystectomy (~2017) History of right hip replacement (~2016) History of total left hip replacement (~2014) Hx of tonsillectomy (~1950) S/P trigger finger release b/l multiple - 2018 Family History Family History Other Cancer Family history non-contributory Social History Social History Smoking status: Former smoker Alcohol intake: current Alcohol use details: 1 glass of wine every 2 weeks Substance use: never Substance use type: does not use Do You Feel Safe in your Home?: Yes Lack of Transportation: No Lack of Food: Never True Current Housing: I Have Housing Concerned About Future Housing: No Difficulty Paying Gas/Electric Bills: No Difficulty Paying for Meds: No Currently Unemployed: No Education: Master's Degree or Higher Difficulty w/ Childcare or Family Care: No Living arrangements: with family Occupation/Education: retired 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
[2024-05-13 14:30] VITALS: BP 138/86; PULSE 84; RESP 16; O2SAT 99
== END 2024-05-13 14:35 | disposition home or self-care (01) ==
PROVIDERS: Emergency Provider Emergency Medicine; PCP Nurse Practitioner
DX: K25.9 Gastric ulcer, unspecified as acute or chronic, without hemorrhage or perforation (principal); I87.2 Venous insufficiency (chronic) (peripheral); I10 Essential (primary) hypertension; E78.5 Hyperlipidemia, unspecified; E55.9 Vitamin D deficiency, unspecified; M19.90 Unspecified osteoarthritis, unspecified site; Z96.641 Presence of right artificial hip joint; Z87.891 Personal history of nicotine dependence; Z90.49 Acquired absence of other specified parts of digestive tract
CPT/HCPCS: 36415; 74177; 80053; 83605; 83690; 85025; 85610; 85730; 96374; 99284; A9270; J2470; Q9967

== ENCOUNTER 2024-06-17 09:31 | Day surgery (SDC) | payer MEDICARE, SELFPAY ==
[2024-06-09 11:55] VITALS: BMI 28.6
[2024-06-09 13:53] VITALS: BMI 27.6
[2024-06-17 10:37] VITALS: BP 152/68; PULSE 57; RESP 16; TEMP 37; O2SAT 97
[2024-06-17] MEDS: LACTATED RINGERS 1,000 ML 150 ML IV CONT (10:50)
--- NOTE | 2024-06-17 10:50 | WPDANESEPPF ---
Anes - Initial Pre Proc Eval Procedure: Operation Date: 06/17/24 12:00 Proposed Procedures p Esophagogastroduodenoscopy - Vito Ortega MD Date/Time: 06/17/24 10:50 Surgeon: Vito Ortega MD Pre Op Diagnosis: Gastritis Patient Data Age: 78 Gender: M Height: 1.83 m Weight: 93.3 kg Last Vital Signs Temp 37.0 C 06/17/24 10:37 Pulse 57 L 06/17/24 10:37 Resp 16 06/17/24 10:37 BP 152/68 H 06/17/24 10:37 Pulse Ox 97 06/17/24 10:37 O2 Del Method Room Air 06/17/24 10:37 Allergies Allergy/AdvReac Type Severity Reaction Status Date / Time Penicillins Allergy Mild Unknown Verified 06/17/24 10:36 amoxicillin Allergy Unknown SOB Verified 06/17/24 10:36 cat dander Allergy Unknown Unknown Verified 06/17/24 10:36 clavulanic acid Allergy Unknown SOB Verified 06/17/24 10:36 house dust Allergy Unknown Unknown Verified 06/17/24 10:36 pollen extracts Allergy Unknown Unknown Verified 06/17/24 10:36 shellfish derived Allergy Unknown Unknown Verified 06/17/24 10:36 ciprofloxacin AdvReac Joint Pain Verified 06/17/24 10:36 Home Medications Medication Instructions Recorded Confirmed Type amlodipine 5 mg tablet 5 mg PO DAILY 06/20/21 06/17/24 History fluticasone propionate 50 50 spray intranasal BID 06/27/23 06/17/24 History mcg/actuation nasal spray,suspension cholecalciferol (vitamin D3) 125 125 mcg PO EVERY OTHER DAY 11/18/23 06/17/24 History mcg (5,000 unit) capsule levocetirizine 5 mg tablet 5 mg PO DAILY 11/18/23 06/17/24 History wvzuoxuk-qst-bthub acid 0.4 1 tablet PO DAILY 11/18/23 06/17/24 History mg-lycopene 300 mcg-lutein 250 mcg tablet (Centrum Silver) polyethylene glycol 3350 17 17 g PO DAILY 11/18/23 06/17/24 History gram/dose oral powder (Miralax) turmeric root extract 500 mg 500 mg PO DAILY 11/18/23 06/17/24 History capsule atorvastatin 40 mg tablet 40 mg PO QHS 01/14/24 06/17/24 History testosterone cypionate 200 mg/mL 100 mg IM WEEKLY 01/14/24 06/17/24 History intramuscular oil omeprazole 40 mg capsule,delayed 40 mg PO DAILY #30 caps 05/27/24 06/17/24 Rx release Patient hx anesthesia problems: none Family hx anesthesia problems: none Results Review: All pre-operative results and documents have been reviewed as part of the pre-operative evaluation. [facility] Past Medical History Medical History Allergic rhinitis Chronic eczematous otitis externa of left ear Chronic venous insufficiency of lower extremity Hyperlipidemia Hypertension Hypogonadism in male Osteoarthritis Vitamin D deficiency Surgical History Surgical History History of cholecystectomy (~2016) History of right hip replacement (~2015) History of total left hip replacement (~2014) Hx of tonsillectomy (~1950) S/P trigger finger release b/l multiple - 2018 Family History Family History Other Cancer Family history non-contributory Social History Social History Smoking status: Former smoker Tobacco type: cigarettes and pipe Alcohol intake: current Alcohol use details: 2 per month Substance use: never Substance use type: does not use Do You Feel Safe in your Home?: Yes Lack of Transportation: No Lack of Food: Never True Current Housing: I Have Housing Concerned About Future Housing: No Difficulty Paying Gas/Electric Bills: No Difficulty Paying for Meds: No Currently Unemployed: No Education: Master's Degree or Higher Difficulty w/ Childcare or Family Care: No Living arrangements: with family Occupation/Education: retired 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
--- NOTE | 2024-06-17 11:05 | WPDHPUPDATE1 ---
History and Physical Update Update Date/Time: 06/17/24 11:05 History and Physical has been reviewed, including an updated exam of the patient. There are NO changes in the patient's condition. Risks, benefits, and alternatives have been discussed and questions answered. Patient agrees to proceed with procedure.
[2024-06-17 11:31] VITALS: BP 115/66; PULSE 57; RESP 16; O2SAT 99
[2024-06-17 11:41] VITALS: BP 127/70; PULSE 58; RESP 16; O2SAT 97
[2024-06-17 11:51] VITALS: BP 144/70; PULSE 58; RESP 20; O2SAT 100
--- NOTE | 2024-06-17 12:01 | WPDANESPN ---
Anes - Prog Note Post-Op Date/Time: 06/17/24 12:01 Cardiovascular status: normal Respiratory status: normal Airway patency: baseline Mental status: baseline Post-Op hydration status: normal Vital Signs: Last Vital Signs Temp 37.0 C 06/17/24 10:37 Pulse 58 L 06/17/24 11:41 Resp 16 06/17/24 11:41 BP 127/70 06/17/24 11:41 Pulse Ox 97 06/17/24 11:41 O2 Del Method Room Air 06/17/24 11:41 O2 Flow Rate 3 06/17/24 11:31 Pain Score (VAS): 0/10 I/O: Intake & Output 06/16/24 06/17/24 06/17/24 23:59 07:59 15:59 Intake Total 400 Balance 400 Patient Feedback: Patient satisfied with anesthetic care.
== END 2024-06-17 12:08 | disposition home or self-care (01) ==
PROVIDERS: PCP Family Medicine; Visit Provider Internal Medicine Gastroenterology
PROC: 0DJ08ZZ Inspection of Upper Intestinal Tract, Via Natural or Artificial Opening Endoscopic (ICD-10-PCS; CPT 43235; principal; 2024-06-17 12:00)
DX: R93.3 Abnormal findings on diagnostic imaging of other parts of digestive tract (principal); R10.13 Epigastric pain
CPT/HCPCS: 43239

== ENCOUNTER 2024-07-21 11:50 | Outpatient (CLI) | payer MEDICARE, SELFPAY ==
[2024-07-21 19:48] LABS: Alanine Aminotransferase 27 U/L (6-50); Albumin Level 4.3 g/dL (3.5-5.1); Alkaline Phosphatase 92 U/L (38-126); Anion Gap 6 mmol/L (4-12); Aspartate Amino Transferase 41 U/L (17-59); Bilirubin,Total 1.7 mg/dL (0.2-1.3); Blood Urea Nitrogen 21 mg/dL (9-20); Calcium 9.6 mg/dL (8.4-10.2); Carbon Dioxide 32 mmol/L (22-30); Chloride 100 mmol/L (98-107); Cholesterol 159 mg/dL (0-200); Estimated Glomerular Filt Rate > 60; Glucose 91 mg/dL (65-110); HDL Direct 48 mg/dL; Potassium 4.8 mmol/L (3.4-5.0); Sodium 138 mmol/L (137-145); Triglycerides 89 mg/dL (<150)
[2024-07-21 20:07] LABS: LDL Cholesterol Direct 76 mg/dL
[2024-07-21 20:36] LABS: Hemoglobin A1C 5.9 % (<5.7)
[2024-07-21 21:19] LABS: Vitamin D 25 Hydroxy 62.4 ng/mL
== END 2024-07-21 11:51 | disposition home or self-care (01) ==
LOC: ANHGOSHLAB 11:52
PROVIDERS: PCP Family Medicine; Visit Provider Family Medicine
DX: R73.9 Hyperglycemia, unspecified (principal); I10 Essential (primary) hypertension; E29.1 Testicular hypofunction; E55.9 Vitamin D deficiency, unspecified
CPT/HCPCS: 36415; 80053; 80061; 82306; 82607; 83036; 84443

== ENCOUNTER 2024-09-21 15:50 | Outpatient (CLI) | payer MEDICARE, SELFPAY ==
--- NOTE | 2024-09-21 15:56 | ECHO_ITS ---
Patient Info Name: Herson Godoy Age: 79 years : 1945 Gender: Male Ht: 73 in Wt: 201 lbs BSA: 2.18 m2 HR: 64 bpm BP: 143 / 88 mmHg Technical Quality: Fair Exam Date: 09/21/2024 4:17 PM Exam Location: Echo Lab Patient Status: Outpatient Admit Date: 09/21/2024 Staff Ordering Physician: Brian Wise MD Team Cdl Driver: Sherry Manuel RDCS Attending Provider: Brian Wise MD Exam Type: CA echo doppler color flow Study Info Indications R01.1 - Cardiac murmur, unspecified Complete two-dimensional, color flow and Doppler transthoracic echocardiogram is performed. Summary 1. Complete two-dimensional, color flow and Doppler transthoracic echocardiogram is performed. 2. Left ventricular chamber dimension is normal. 3. Left ventricular systolic function is hyperdynamic, estimated at >70%. 4. The left ventricular diastolic function is abnormal. 5. E/e' 15 is elevated. 6. Left atrial chamber dimension is mildly enlarged. 7. No parasternal short axis views obtained. 8. The aortic valve is not well visualized. Cannot determine number of aortic valve leaflets. 9. There is mild aortic valve stenosis based on a peak velocity of 241 cm/s, mean gradient of 13 mmHg, and aortic valve area of 1.6 cm2. 10. There is moderate aortic valve sclerosis. 11. There is mild aortic valve regurgitation. 12. The mitral valve has moderately calcified annulus. 13. There is trace mitral valve regurgitation. 14. There is trace tricuspid valve regurgitation. 15. No pulmonary hypertension, estimated pulmonary arterial systolic pressure is 33 mmHg. Left Ventricle E/e' 15 is elevated. Left ventricular chamber dimension is normal. Left ventricular systolic function is hyperdynamic, estimated at >70%. The left ventricular diastolic function is abnormal. Right Ventricle Right ventricular systolic function is normal and with normal TAPSE 2.4 cm. Right ventricular chamber dimension is normal. Left Atria Left atrial chamber dimension is mildly enlarged. Right Atria Right atrial chamber dimension is normal. Aortic Valve The aortic valve is not well visualized. Cannot determine number of aortic valve leaflets. There is mild aortic valve stenosis based on a peak velocity of 241 cm/s, mean gradient of 13 mmHg, and aortic valve area of 1.6 cm2. No parasternal short axis views obtained. There is moderate aortic valve sclerosis. There is mild aortic valve regurgitation. Pulmonic Valve There is no pulmonic regurgitation. Mitral Valve The mitral valve has moderately calcified annulus. There is no mitral valve stenosis. There is trace mitral valve regurgitation. Tricuspid Valve There is trace tricuspid valve regurgitation. No pulmonary hypertension, estimated pulmonary arterial systolic pressure is 33 mmHg. Pericardium/Pleural There is no pericardial effusion. Inferior Vena Cava Normal inferior vena cava with >50% collapse upon inspiration consistent with normal right atrial pressure, 5 mmHg. Aorta The aortic root size at the sinus of Valsalva is normal. Left Ventricular Outflow Tract Name Value Normal LVOT 2D LVOT Diameter 2.0 cm LVOT Doppler LVOT Peak Gradient 5 mmHg LVOT Mean Gradient 2 mmHg LVOT VTI 27 cm LVOT VTI/AV VTI Ratio 0.5 LVOT Stroke Volume 87 ml LVOT CO 5.3 l/min LVOT CI 2.4 l/min/m2 Pulmonic Valve Name Value Normal PV Doppler PV Peak Gradient 4 mmHg Mitral Valve Name Value Normal MV Doppler MV Decel Childress 476 cm/s2 MV PHT 66 ms MV Area (PHT) 3.4 cm2 4.0-5.0 MV Diastolic Function MV E Peak Velocity 108 cm/s MV A Peak Velocity 100 cm/s MV E/A 1.1 MV Decel Time 226 ms Tricuspid Valve Name Value Normal TV Regurgitation Doppler TR Peak Velocity 263 cm/s TR Peak Gradient 17 mmHg Estimated PAP/RSVP RA Pressure 5 mmHg <=5 PA Systolic Pressure 33 mmHg <36 RV Systolic Pressure 33 mmHg <36 Aorta Name Value Normal Ascending Aorta Ao Root Diameter (MM) 2.4 cm Ao Root Diam Index (MM) 1.1 cm/m2 Aortic Valve Name Value Normal AV Doppler AV Peak Velocity 241 cm/s AV Peak Gradient 23 mmHg AV Mean Gradient 13 mmHg AV VTI 55 cm AV Area (Cont Eq VTI) 1.6 cm2 >=3.0 AV Area (Cont Eq Ronnie) 1.5 cm2 AV Regurgitation 2D LVOT Area 3.2 cm2 AV Regurgitation Doppler AR Decel Time 1,920 ms AR Decel Childress 217 cm/s2 AR PHT 557 ms Ventricles Name Value Normal LV Dimensions 2D/MM IVS Diastolic Thickness (2D) 0.8 cm 0.6-1.0 IVS Diastole Thickness (MM) 0.7 cm 0.6-1.0 LVID Diastole (2D) 4.6 cm 4.2-5.8 LVID Diastole (MM) 5.7 cm 4.2-5.8 LVIW Diastolic Thickness (2D) 0.9 cm 0.6-1.0 LVIW Diastolic Thickness (MM) 0.9 cm 0.6-1.0 LVID Systole (2D) 2.7 cm 2.5-4.0 LVID Systole (MM) 3.7 cm 2.5-4.0 LVOT Diameter 2.0 cm LV Mass (2D Cubed) 136.03 g 88.00-224.00 LV Mass Index (2D Cubed) 62 g/m2 49-115 Relative Wall Thickness (2D) 0.41 LV Mass (MM Cubed) 176.40 g 88.00-224.00 LV Mass Index (MM Cubed) 81 g/m2 49-115 Relative Wall Thickness (MM) 0.31 LV Fractional Shortening/Ejection Fraction 2D/MM LV Fractional Shortening (2D) 43 % 25-43 LV Fractional Shortening (MM) 36 % 25-43 LV EF (MM Teicholz) 65 % 52-72 LV EF (2D Teicholz) 74 % 52-72 LV Diastolic Volume (4C MOD) 103 ml LV EF (4C MOD) 74 % LV Diastolic Volume (2C MOD) 68 ml LV EF (2C MOD) 63 % LV Diastolic Volume (BP MOD) 84 ml 62-150 LV Diastolic Volume Index (BP MOD) 38 ml/m2 34-74 LV Systolic Volume (BP MOD) 26 ml 21-61 LV Systolic Volume Index (BP MOD) 12 ml/m2 11-31 LV EF (BP MOD) 69 % 52-72 LV Diastolic Length (4C) 9.1 cm LV Systolic Length (4C) 7.0 cm LV Stroke Volume (4C MOD) 76 ml Atria Name Value Normal LA Dimensions LA Dimension (MM) 4.8 cm 3.0-4.1 LA Volume (4C A-L) 64 ml LA Volume (BP A-L) 59 ml RA Dimensions RA Area (4C) 8.9 cm2 <=18.0 Report Signatures
== END 2024-09-21 15:51 | disposition home or self-care (01) ==
LOC: ANHCARD 15:53
PROVIDERS: PCP Family Medicine; Visit Provider Family Medicine
DX: R01.1 Cardiac murmur, unspecified (principal); I10 Essential (primary) hypertension; I35.0 Nonrheumatic aortic (valve) stenosis; I35.1 Nonrheumatic aortic (valve) insufficiency
CPT/HCPCS: 93306

== ENCOUNTER 2025-02-22 15:23 | Outpatient (CLI) | payer MEDICARE, SELFPAY ==
--- NOTE | ~2025-02-22 | CT_ITS ---
EXAMINATION: CT LE RT wo con DATE: 02/22/2025 17:32 INDICATION: Unilateral primary osteoarthritis of the right knee TECHNIQUE: High resolution computed tomography (CT) of the right lower extremity from the hip through the ankle was performed without intravenous contrast. Additional sagittal and coronal reconstruction s were performed. Automated exposure control and iterative reconstruction technique were employed. Th e dose-length product was 2183.64 mGy-cm. COMPARISON: Right knee radiographs dated 02/02/2025 FINDINGS: Right total hip arthroplasty which appears well seated in near-anatomic alignment. There is also an i ncompletely visualized left total hip arthroplasty. Severe lower lumbar spondylosis with transitional lumbosacral segment. Tricompartmental osteoarthritis at the right knee, severe in the lateral compar tment with remodeling with subarticular eburnation of the posterior two thirds of the articular surfa ce of the lateral tibial plateau. There is at least mild osteoarthritis at the medial and patellofemo ral compartments. Subtle chondrocalcinosis of the menisci. There are also a few scattered osteochondr al bodies at the margins of the joint space. No knee joint effusion. Couple small ganglion cysts at t he lateral side of the popliteal fossa posterior to the origin of the lateral head of the gastrocnemi us. Minimal osteoarthritis at the right forefoot. Subcutaneous edema at the mid to distal right calf and at the visualized distal left calf. Multiple diverticula along the sigmoid colon without adjacent inflammatory stranding to suggest diverticular colitis. Normal appendix. Small right-sided and moder ate sized left-sided fat-containing inguinal hernias with suggestion of bilateral varicoceles. No pat hologically enlarged pelvic or inguinal lymphadenopathy. IMPRESSION: 1. Severe lateral compartment predominant tricompartmental osteoarthritis at the right knee. Reviewed, dictated and finalized at location A. IMPRESSION: 1. Severe lateral compartment predominant tricompartmental osteoarthritis at th e right knee.
--- OUTSIDE RECORDS SUMMARY | 2025-02-22 15:26 | XMS_ITS | Encounter Summary ---
Author Organization [facility] Address [address] [place] [address] Care Team Providers Care Thread Drawer Name Role Phone Bartolome Arriola MD Primary Care Provider Unavailable Encounter Details Date Type Department Care Team (Late st Contact Info) Description 04/15/2022 Digital Self COVID-1 9 Monitoring [facility] ABSTRACTION Provider, Abstract NO ADDRESS ON FILE Social History Tobacco Use Types Packs/Day Years Used Date Smoking Tobacco: Former Cigarettes 1 8 0 01/19/1970 - 01/19/1978 Pipe Smokeless Tobacco: Never Comments:Cigarettes quit 197 0; Pipe quit 1977 Alcohol Use Standard Drinks/Week Comments Not Currently 2 (1 standard drink = 0.6 oz pur e alcohol) Very occasional Financial Resource Strain Answer Date R ecorded How hard is it for you to pa y for the very basics like food, housing, medical care, and heating? Not hard at all 06/23/2021 Food Insecurity Answer Date Recorded In the past 12 months, have you worried that your food would run out before you had money to buy more? Never true 06/23/2021 In the past 12 months, did y ou run out of food and didn't have money to buy more? Never true 06/23/2021 Transportation Needs Answer Date Record ed In the past 12 months, has l ack of transportation kept you from medical appointments or from getting medications? 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 Unable to assess 04/03/2022 11:24 AM CDT documented as of this encounter Plan of Treatment Not on file documented as of this encounter Visit Diagnoses Not on filedocumented in this encounter Care Teams Thread Drawer Relationship Specialty Start Date End Date Bartolome Arriola MD PCP - General Internal Medicine 08/17/20 documented as of this encounter
--- OUTSIDE RECORDS SUMMARY | 2025-02-22 15:26 | XMS_ITS | Encounter Summary ---
Author Organization [facility] Address 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
--- OUTSIDE RECORDS SUMMARY | 2025-02-22 15:26 | XMS_ITS | Clinical Summary ---
Author Organization [facility] Address [address] [place] [address] Phone Care Team Providers Care Threading Machine Operator Name Role Phone Bartolome Arriola MD Primary Care Provider Unavailable Allergies Active Allergy Reactions Criticality Noted Date Comments Amoxicillin Trihydrate Rash Low 04/24/2013 Amoxicillin-Pot Clavulanate Rash Low 08/21/2017 Cat Dander Other (See Comments) 06/23/2020 Cat Hair Standardized Allergenic Extract Other (See Comments) 10/20/1987 Losartan Other (See Comments) 08/13/2017 Hyperkalemia Pollen Extracts Other (See Comments) 01/19/2013 Potassium Clavulanate Rash Low 04/24/2013 Shellfish Containing Products Shortness of Breath/Wheezing High 01/19/2013 [place] Pollen-Short Ragweed Unknown 03/20/1970 Medications polyethylene glycol (MIRALAX) 17 gram Powder in Packet Take 17 Grams by mouth daily. Active multivitamin (DAILY-JUAN) tablet Take 1 Tablet by mouth daily. Active testosterone cypionate (DEPO-TESTOSTE DESTINEE) 200 mg/mL Oil testosterone cypionate 200 mg/mL intramuscular oil Active DISPOSABLE NEEDLES 25 gauge x 1 1/2 Needle U FOR IM INJECTION OF TESTOSTERONE ONCE WEEKLY UTD 1 9 Active levocetirizine (XYZAL) 5 mg tablet 2 Active fluticasone propionate (FLONASE) 50 mcg/spray [place], Suspension nasal inhaler Active CALCIUM CARBONATE-JUVENAL MIN D3 ORAL Take by mouth daily. Active FXDPZCS-HPSO-C DUGD-OIDL-MOAE YL ORAL Take by mouth daily. Active cholecalcifero l, vitamin D3, (VITAMIN D3 ORAL) Take by mouth. Activ e ciprofloxacin HCl (CIPRO) 500 mg tablet Take 500 mg by mouth 2 times daily. 4 Active predniSONE (DELTASONE) 20 mg tabletIndicati ons:Post-viral cough syndrome,Short ness of breath Take 1 Tablet (20 mg) by mouth 2 times daily with meals. 10 Tablet 4 Active atorvastatin (LIPITOR) 40 mg tablet TAKE 1 TABLET EVERY DAY 100 Tablet 4 4 Active amLODIPine (NORVASC) 5 mg tablet TAKE 1 TABLET EVERY DAY 100 Tablet 4 4 Active Active Problems Patient Care Coordination No te Formatting of this note migh t be different from the original. Derm - Dr Montano ; ENT - Dr Arechiga ; Ortho - Dr Tyler Yung. Problem Noted Date Diagnosed Date Hx of adenomatous colonic polyps 07/20/2020 Overview (10/07/2023): Colonoscopy 09/2023: 4 small tubular adenomas. Follow-up screening colonoscopy 5 years? Likely not necessary in the setting of advancing age. Reevaluate as at time approaches. 06/2020: 6 small tubular adenoma. Follow up screening colonoscopy 3 year. 06/2015: small tubular adenoma. History of acute pancreatitis 06/12/2019 Overview (06/12/2019): 2016 Prediabetes 06/18/2018 Primary osteoarthritis of both knees 12/08/2017 Primary osteoarthritis involving multiple joints 06/17/2017 Subclinical hypothyroidism 06/17/2017 Constipation 06/17/2017 Primary osteoarthritis of both hips 06/14/2016 Overview (06/14/2016): Right total hip replacement 04/04. Left total hip replacement 02/01. 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 Encounters Date Type Department Care Team Description 01/20/2025 Telephone [facility] Gastroenterology [facility] [address] [place] [address] Cordell Gonzalez MD Question 01/05/2025 External Device Data [facility] ABSTRACTION Provider, Abstract 12/25/2024 External Device Data [facility] ABSTRACTION Provider, Abstract 12/24/2024 External Device Data [facility] ABSTRACTION Provider, Abstract 12/07/2024 External Device Data [facility] ABSTRACTION Provider, Abstract from Last 3 Months Immunizations Immunization Administration Dates Next Due (ADACEL/BOOSTRIX)(10 YR UP) TDAP VACCINE, 0.5ML, IM 07/15/2019,11/20/2008 (PFIZER)(12 YR UP) COVID-19 VACCINE - EMERGENCY USE AUTHORIZATION, MRNA, [id number](PF) 30 MCG/0.3 ML IM SUSP 12/22/2021,07/18/2021,12/22/2020,11/24 (PNEUMOVAX 23)(50 YRS UP) PN EUMOCOCCAL POLYSACCHARIDE (PPV23) 0.5 ML, IM 07/17/2011 (PREVNAR 13)(6 WKS UP) PNEUM OCOCCAL CONJUGATE (PCV13) 0.5 ML, IM 06/12/2015,04/04/2015 (Pfizer Bivalent)(12 Yr Up) COVID-19 Vaccine - Emergency Use Authorization, MRNA, Lnp-S(Pf) 30 Mcg/0.3 Ml Susp 06/28/2022 (SHINGRIX)(50 YRS UP) ZOSTER VACCINE RECOMBINANT, 0.5 ML, IM 04/30/2019,01/24/2019 (TDVAX)(7 YRS UP) TETANUS AN D DIPHTHERIA TOXOIDS, ADSORBED (2 LF OF TETANUS TOXOID AND 2 LF OF DIPHTHERIA TOXOID), 0.5ML (PF), IM 12/19/1999 (TENIVAC)(7 YRS UP) TETANUS AND DIPHTHERIA TOXOIDS, ADSORBED (5 LF OF TETANUS TOXOID AND 2 LF OF DIPHTHERIA TOXOID), 0.5ML (PF), IM 07/15/2019 Human Immune Globulin IM 06/20/1955 INFLUENZA VACCINE HIGH DOSE QUADRIVALENT 65 YR UP PF IM 06/14/2020 INFLUENZA VACCINE QUADRIVALE NT 6 MOS UP PF IM 06/26/2021,07/22/2017 Influenza Seasonal Unspecifi ed Formulation IM 06/30/2023,07/24/2022,07/09/2012,07/17 Influenza Vaccine High Dose 65+ Yrs IM 0 06/14/2020,07/15/2019,06/18/2018,06/17,07/24/2016,08/10/2015,07/20/2014 Influenza Vaccine Split 3+ Yrs IM 07/08/2013 Influenza Vaccine Tri Split 4+ Im 06/20/2014 Pneumococcal Polysaccharide Vacc 23-aneta IM SCHIP 08/24/2015 Tetanus Toxoid, Unspecified Formulation 04/19/2005 Tetanus Vaccine IM 04/19/2005 Zoster Vaccine Live SQ 04/04/2015,05/20/2011 Family History Medical History Relation Name Comments Cancer Father Herson Godoy Blood Cancer; age 38 Cancer Sister 1 Maribell Godoy Pasquale gynec ological Colon Cancer Neg Hx Relation Name Status Comments Brother Alive Father Herson Godoy Maternal Grandfather Maternal Grandmother Mother (Age 97) Paternal Grandfather Paternal Grandmother Sister 1 Maribell Godoy Pasquale Sister 2 Alive Social History Tobacco Use Types Packs/Day Years Used Date Smoking Tobacco: Former Cigarettes 1 8 0 01/19/1970 - 01/19/1978 Pipe Smokeless Tobacco: Never Tobacco Cessation:Counseling Given: Not Answered Comments:Cigarettes quit 1969; Pipe quit 1977 Alcohol Use Standard Drinks/Week Comments Not Currently 2 (1 standard drink = 0.6 oz pur e alcohol) Very occasional Financial Resource Strain Answer Date R ecorded How hard is it for you to pa y for the very basics like food, housing, medical care, and heating? Not hard at all 06/28/2022 Food Insecurity Answer Date Recorded In the past 12 months, have you worried that your food would run out before you had money to buy more? Never true 06/28/2022 In the past 12 months, did y ou run out of food and didn't have money to buy more? Never true 06/28/2022 Transportation Needs Answer Date Record ed In the past 12 months, has l ack of transportation kept you from medical appointments or from getting medications? No 06/28/2022 Lack of Transportation (Non-Medical) Not on file 06/28/2022 Feeling Safe Answer Date Recorded Are you in a relationship wi th someone who hurts you emotionally and/or physically? 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 Gender Identity Male 06/26/2024 8:42 AM CDT Sexual Orientation Straight 06/26/2024 8: 42 AM CDT Last Filed Vital Signs Vital Sign Reading Time Taken Comments Blood Pressure 138/78 10/30/2023 7:19 AM REDIPPER Pulse 87 10/30/2023 7:19 AM REDIPPER Temperature 36.3 C (97.4 F) 10/30/2023 7:19 AM REDIPPER Respiratory Rate 17 10/06/2023 10:55 AM REDIPPER Oxygen Saturation 95% 10/30/2023 7:19 AM REDIPPER Inhaled Oxygen Concentration - - Weight 98 kg (216 lb) 10/30/2023 7:19 AM REDIPPER Height 185.4 cm (6' 1 ) 10/30/2023 7:19 AM REDIPPER Body Mass Index 28.5 10/30/2023 7:19 AM REDIPPER Plan of Treatment Health Maintenance Due Date Last Done Comments RSV VACCINE (60+ or ) (1 - 1-dose 75+ series) 2021 INFLUENZA VACCINE (#1) 2024 , 07/24/2022, 06/26/2021, Additional history exists COVID-19 Vaccine (2023-2 5 season) 2024 06/28/2022, 12/22/2021, 07/18/2021, Additional history exists COLORECTAL SCREENING 10/06/2028 10/06/2023, 10/06/2023, 07/19/2020, Additional history exists DTAP/TDAP/TD VACCINES (4 - T d or Tdap) 07/15/2029 07/15/2019, 07/15/2019, 11/20/2008, Additional history exists PNEUMOCOCCAL VACCINE 50+ YEARS Completed 1 10/24/2014, 06/12/2015, 04/04/2015, Additional history exists ZOSTER VACCINE Completed 04/30/2019, 04/0 04/2019, 04/04/2015, Additional history exists Medical Devices Implanted Type Area Pressure Dispatcher Device Identifier Shelf Expiration Date Model / Serial / Lot [employer] Procedures Procedure Name Priority Date/Time Associated Diagnosis Comments COLONOSCOPY REPORT 10/06/2023 10 :42 AM REDIPPER from Last 3 Months or Most Recently Relevant to Health Maintenance Results * COLONOSCOPY REPORT (10/06/2023 10:42 AM REDIPPER) Narrative Procedure Note Cordell Gonzalez MD - 10/06/2023 10:42 AM CST [facility] Endoscopy Patient Name: eHrson Godoy Procedure Date: 10/06/2023 Date of : 1945 Attending MD: Cordell Gonzalez MD, Procedure: Colonoscopy Indications: Surveillance: Personal history of adenomatous polyps on last colonoscopy 06/2020 Providers: Cordell Gonzalez MD Referring MD: Bartolome Arriola MD Medicines: Propofol per Anesthesia Complications: No immediate complications. Procedure: Informed consent was obtained for the procedure, including moderate sedation after risks were discussed. Based on the pre-procedure assessment, including review of the patient's medical history, medications, allergies, and review of systems, the patient was deemed to be an appropriate candidate for sedation. A timeout was performed. Continuous ECG monitoring, pulse oximetry, blood pressure monitoring, and direct observation were performed. The scope was introduced through the anus and advanced to the cecum, identified by appendiceal orifice and ileocecal valve. The colonoscopy was performed without difficulty. The patient tolerated the procedure well. The quality of the bowel preparation was good. At completion of the exam, the scope was advanced to the cecum and all residual air was removed. Estimated Blood Loss: Estimated blood loss: none. Findings: 4 sessile polyps were found in the descending colon, transverse colon and ascending colon. The polyps were 3 to 5 mm in size. These polyps were removed with a cold snare. Resection and retrieval were complete. Multiple small-mouthed diverticula were found from sigmoid to descending colon. Internal hemorrhoids were found during retroflexion. The hemorrhoids were moderate. Impression: - 4 small colon polyps. Resected and retrieved. - Mild-moderate diverticulosis. - Internal hemorrhoids. Recommendation: - Await pathology results. Cordell Gonzalez MD 10/06/2023 10:42:05 AM This report has been signed electronically. Number of Addenda: [address]; [place] [address] Cordell Gonzalez MD GI PROCEDURE ORDERABLES Final Re sult from Last 3 Months or Most Recently Relevant to Health Maintenance Insurance MEDICARE PART A AND B [employer] MEDICARE SUPP AESSI RX [employer] Medicare Part D Advance Directives For more information, please contact: [phone] * Full Code (Latest Code Status on File) Date Activated Date Inactivated Comments 10/06/2023 9:46 AM 10/06/2023 1:36 PM * Full Code Date Activated Date Inactivated Comments 07/19/2020 9:30 AM 07/19/2020 1:11 PM * Full Code Date Activated Date Inactivated Comments 09/22/2017 9:27 AM 09/22/2017 4:11 PM * Full Code Date Activated Date Inactivated Comments 09/22/2017 8:04 AM 09/22/2017 9:27 AM * Full Code Date Activated Date Inactivated Comments 09/22/2017 6:58 AM 09/22/2017 8:03 AM Care Teams Threading Machine Operator Relationship Specialty Start Date End Date Bartolome Arriola MD PCP - General Internal Medicine 08/17/20
--- OUTSIDE RECORDS SUMMARY | 2025-02-22 15:26 | XMS_ITS | Encounter Summary ---
Author Organization [facility] Address 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
--- OUTSIDE RECORDS SUMMARY | 2025-02-22 15:26 | XMS_ITS | Encounter Summary ---
Author Organization [facility] Address 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
--- OUTSIDE RECORDS SUMMARY | 2025-02-22 15:26 | XMS_ITS | Encounter Summary ---
Author Organization [facility] Address 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
--- OUTSIDE RECORDS SUMMARY | 2025-02-22 15:26 | XMS_ITS | Encounter Summary ---
Author Organization [facility] Address 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
--- OUTSIDE RECORDS SUMMARY | 2025-02-22 15:26 | XMS_ITS | Encounter Summary ---
Author Organization [facility] [facility] [employer] Address 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
--- OUTSIDE RECORDS SUMMARY | 2025-02-22 15:26 | XMS_ITS | Encounter Summary ---
Author Organization [facility] Address [address] [place] [address] Care Team Providers Care Neuro Intensivist Physician Name Role Phone Bartolome Arriola MD Primary [...] AM CDT Legal Sex Male 4:17 AM MOTEL FOOD SERVICE SUPERVISOR Gender Identity Male 06/26/2024 8:42 AM CDT [...] on filedocumented in this encounter Care Teams Neuro Intensivist Physician Relationship Specialty Start Date End Date Bartolome Arriola MD PCP - General Internal Medicine 08/17/20 documented as of this encounter
--- OUTSIDE RECORDS SUMMARY | 2025-02-22 15:26 | XMS_ITS | Encounter Summary ---
[facility] Organization [facility] Address [address] [place] [address] Care Team Providers Care Lens Block Gauger Name Role Phone Bartolome Arriola MD Primary [...] AM CDT Legal Sex Male 4:17 AM FLOOR CARE TECHNICIAN Gender Identity Male 06/26/2024 8:42 AM CDT [...] on filedocumented in this encounter Care Teams Lens Block Gauger Relationship Specialty Start Date End Date Bartolome Arriola MD PCP - General Internal Medicine 08/17/20 documented as of this encounter
--- OUTSIDE RECORDS SUMMARY | 2025-02-22 15:26 | XMS_ITS | Encounter Summary ---
Author Organization [facility] Address 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
--- OUTSIDE RECORDS SUMMARY | 2025-02-22 15:26 | XMS_ITS | Encounter Summary ---
Author Organization [facility] Healthcare Address [address] [place] [address] Care Team Providers Care Reconditioning Associate Name Role Phone Lenny Wise MD Primary Care Provider Encounter Details Date Type Department Care Team (Late st Contact Info) Description 01/12/2025 Results Follow-Up [facility] Medical Group Cardiology [address] [address] Car Thomas MD [address] [facility] [address] [place] [address] Social History Tobacco Use Types Packs/Day Years Used Date Smoking Tobacco: Never Smokeless Tobacco: Former Comments:55 years agp previo us Sex and Gender Information Value Date Recorded Sex Assigned at Not on file 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:53 PM LANDCARE OFFICER Gender Identity Male 08/29/2021 9:39 AM LANDCARE OFFICER Sexual Orientation Straight 08/29/2021 9: 39 AM LANDCARE OFFICER documented as of this encounter Plan of Treatment Not on file documented as of this encounter Visit Diagnoses Not on filedocumented in this encounter Care Teams Reconditioning Associate Relationship Specialty Start Date End Date Lenny Wise MD [address] [facility] [address] [place], [place] [id number] PCP - General Family Practice 12/21/24 documented as of this encounter
--- OUTSIDE RECORDS SUMMARY | 2025-02-22 15:26 | XMS_ITS | Encounter Summary ---
Author Organization [facility] Address [address] [place] [address] Care Team Providers Care Director Of Payroll Name Role Phone Bartolome Arriola MD Primary [...] AM CDT Legal Sex Male 4:17 AM SHIP SURVEYOR Gender Identity Male 06/26/2024 8:42 AM CDT [...] on filedocumented in this encounter Care Teams Director Of Payroll Relationship Specialty Start Date End Date Bratolome Arriola MD PCP - General Internal Medicine 08/17/20 documented as of this encounter
--- OUTSIDE RECORDS SUMMARY | 2025-02-22 15:26 | XMS_ITS | Encounter Summary ---
Author Organization [facility] Address [address] [place] [address] Care Team Providers Care Marketing Database Coordinator Name Role Phone aBrtolome Arriola MD Primary Care Provider Unavailable Encounter Details Date Type Department Care Team (Late st Contact Info) Description 04/09/2022 Digital Self COVID-1 9 Monitoring STL ABSTRACTION [...] AM CDT Legal Sex Male 4:17 AM INFECTIOUS DISEASE PHYSICIAN Gender Identity Male 06/26/2024 8:42 AM CDT [...] on filedocumented in this encounter Care Teams Marketing Database Coordinator Relationship Specialty Start Date End Date Bartolome Arriola MD PCP - General Internal Medicine 08/17/20 documented as of this encounter
--- OUTSIDE RECORDS SUMMARY | 2025-02-22 15:26 | XMS_ITS | Encounter Summary ---
Author Organization [facility] Address 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
--- OUTSIDE RECORDS SUMMARY | 2025-02-22 15:26 | XMS_ITS | Encounter Summary ---
Author Organization [facility] Address [address] [place] [address] Care Team Providers Care Car Spotter Name Role Phone Bartolome Arriola MD Primary [...] AM CDT Legal Sex Male 4:17 AM BISQUE PLACER Gender Identity Male 06/26/2024 8:42 AM CDT [...] on filedocumented in this encounter Care Teams Car Spotter Relationship Specialty Start Date End Date Bartolome Arriola MD PCP - General Internal Medicine 08/17/20 documented as of this encounter
--- OUTSIDE RECORDS SUMMARY | 2025-02-22 15:26 | XMS_ITS | Encounter Summary ---
Author Organization [facility] Address [address] [place] [address] Care Team Providers Care Plate Finisher Name Role Phone Bartolome Arriola MD Primary [...] AM CDT Legal Sex Male 4:17 AM ANIMAL PARK CODE ENFORCEMENT OFFICER Gender Identity Male 06/26/2024 8:42 AM CDT [...] on filedocumented in this encounter Care Teams Plate Finisher Relationship Specialty Start Date End Date Bartolome Arriola MD PCP - General Internal Medicine 08/17/20 documented as of this encounter
--- OUTSIDE RECORDS SUMMARY | 2025-02-22 15:27 | XMS_ITS | Encounter Summary ---
Author Organization [facility] Address 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
--- OUTSIDE RECORDS SUMMARY | 2025-02-22 15:27 | XMS_ITS | Clinical Summary ---
Author Organization [facility] Address [address] [address] Care Team Providers Care Bull Rider Name Role Phone Lenny Wise MD Primary Care Provider Allergies Active Allergy Reactions Criticality Noted Date Comments Amoxicillin-Pot Clavulanate Cat Dander Levonorgestrel-Ethinyl Estrad Shellfish Containing Products Medications amLODIPine (NORVASC) 5 mg tablet 0 Active atorvastatin (LIPITOR) 40 mg tablet atorvastatin 40 mg tablet 0 Active cetirizine (ZyrTEC) 10 mg tablet Take 1 tablet (10 mg total) by mouth daily Active fluticasone propionate (FLONASE) 50 mcg/actuation nasal spray fluticasone propionate 50 mcg/actuation nasal spray,suspension 4 Active syringe with needle (BD Luer-Krystal Syringe) 3 mL 21 gauge x 1 syringe U SYRINGE FOR TESTOSTERINE INJECTION 9 Active testosterone cypionate (DEPO-TESTOTER ONE) 200 mg/mL injection testosterone cypionate 200 mg/mL intramuscular oil Active tetanus-diphth eria toxoids (TDVAX) injection TDVAX 2 Lf unit-2 Lf unit/0.5 mL intramuscular suspension Active etodolac (LODINE) 400 mg tablet TAKE 1 TABLET(400 MG) BY MOUTH TWICE DAILY 60 tablet 1 2 Active Active Problems Problem Noted Date Diagnosed Date Bilateral lower extremity edema 12/21/2024 Pre-operative cardiovascular examination 025 PITT (dyspnea on exertion) 12/21/2024 Lightheadedness 12/21/2024 Essential hypertension 12/21/2024 Nonrheumatic aortic (valve) stenosis 12/21/2024 Lipid screening 12/21/2024 Lateral pain of right hip 09/19/2021 Trigger middle finger of left hand 05/07/2021 Bilateral hand pain 11/13/2020 Closed displaced fracture of shaft of fourth metacarpal bone of right hand 03/29/2020 History of artificial joint 03/06/2017 Osteoarthritis of hip 07/03/2016 Encounters Date Type Department Care Team Description 01/12/2025 Results Follow-Up [facility] Cardiology [address] [place] [address] [address] [facility] [address] [address] Mike Manning MD 01/11/2025 7:45 AM CDT Ancillary Procedure [facility] Cardiology [address] [facility] [address] [place] [address] 01/04/2025 1:30 PM CDT Ancillary Procedure [facility] Cardiology [facility] [address] [place] [address] Lightheadedness 12/21/2024 11:15 AM SEPARATOR TENDER Office Visit [facility] Cardiology [address] [place] [address] [address] [facility] [place] [address] Mike Manning MD Lipid screening (Primary Dx); Nonrheumatic aortic (valve) stenosis; Essential hypertension; Lightheadedness; PITT (dyspnea on exertion); Pre-operative cardiovascular examination; Bilateral lower extremity edema from Last 3 Months Medical History Medical History Date Comments Hypertension Family History Medical History Relation Name Comments Cancer Father Hypertension Mother Relation Name Status Comments Father Mother Social History Tobacco Use Types Packs/Day Years Used Date Smoking Tobacco: Never Smokeless Tobacco: Former Tobacco Cessation:Counseling Given: Not Answered Comments:54 years agp previous Sex and Gender Information Value Date Recorded Sex Assigned at Not on file 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:53 PM SEPARATOR TENDER Gender Identity Male 08/29/2021 9:39 AM SEPARATOR TENDER Sexual Orientation Straight 08/29/2021 9: 39 AM SEPARATOR TENDER Obstetrics History Last Filed Vital Signs Vital Sign Reading Time Taken Comments Blood Pressure 126/70 12/21/2024 11:05 AM SEPARATOR TENDER Pulse 62 12/21/2024 11:05 AM SEPARATOR TENDER Temperature 36.5 C (97.7 F) 09/19/2021 4:46 PM SEPARATOR TENDER Respiratory Rate 18 12/21/2024 11:05 AM SEPARATOR TENDER Oxygen Saturation 95% 12/21/2024 11:05 AM SEPARATOR TENDER Inhaled Oxygen Concentration - - Weight 96 kg (211 lb 9.6 oz) 12/21/2024 11:05 AM SEPARATOR TENDER Height 185.4 cm (6' 1 ) 12/21/2024 11:05 AM SEPARATOR TENDER Body Mass Index 27.92 12/21/2024 11:05 AM SEPARATOR TENDER Plan of Treatment Health Maintenance Due Date Last Done Comments Depression Screening 1945 Fall Risk Assessment 1945 Hepatitis C Screening 1945 Hepatitis B Screening 1964 Well Visit 65+ 2011 Influenza Vaccine (Season Ended) 2025 06/30/2023, 07/24/2022, 06/26/2021, Additional history exists DTaP/Tdap/Td Vaccine (4 - Td or Tdap) 07/15/2029 07/15/2019, 07/15/2019, 11/20/2008, Additional history exists Pneumococcal vaccine 65+ Completed 015, 06/12/2015, 04/04/2015, Additional history exists Zoster Vaccine Completed 04/30/2019, 040 05/2019, 04/04/2015, Additional history exists Procedures Procedure Name Priority Date/Time Associated Diagnosis Comments NM MPI SPECT (REST AND/OR STRESS) MULTIPLE STUDIES Schedule Routine, Read Routine (OP Routine) 01/11/2025 9:56 AM CDT Nonrheumatic aortic (valve) stenosis PITT (dyspnea on exertion) Pre-operative cardiovascular examination MCT - MOBILE CARDIAC TELEMETRY EVENT MONITOR Routine 01/04/2025 9:22 AM CDT Lightheadedness ELECTROCARDIOGRAM REPORT Routine 12/21/2024 4:18 PM SEPARATOR TENDER Nonrheumatic aortic (valve) stenosis Pre-operative cardiovascular examination POCT LIPID PANEL Routine 12/21/2024 11:00 AM SEPARATOR TENDER Lipid screening from Last 3 Months Results * NM MPI SPECT (Rest and/or Stress) Multiple Studies (01/11/2025 9:56 AM CDT) Anatomical Region Laterality Modality Body N/A Nuclear Medicine 01/11/2025 7:26 AM CDT Narrative 01/11/2025 6:21 PM CDT [facility] Cardiology [address] [facility] [address], [place] [address] [address] [facility] [address], [place] [address] P:[phone] P:[phone] MPI Imaging Report Patient Name: JOANIE GODOYLucy : 1945 Study Date: 01/11/2025 7:26:07 AM Gender: M Tech: [facility] Location: [facility] Provider: MIKE MANNING Height(Cm): 185.4 BSA: Weight(Kg): 96 BMI: 27.93 Order Provider: MIKE MANNING PHYSICIAN: Referring Physician: Dr. Wise. HCG Physician: Jamie Manning M.D. Interpreting Physician: Jamie Manning M.D. Stress Supervision: Narayan Lopez M.D. PROCEDURES: Pharmacologic SPECT Report: Myocardial perfusion imaging with Tc99M Sestamibi SPECT at rest and stress post regadenoson (Lexiscan) infusion. INDICATIONS: Hypertension, Family Hx CAD, High Cholesterol, Former Smoker, I35.0 Nonrheumatic aortic (valve) stenosis, R06.09 Other forms of dyspnea, and Z01.810 Encounter for preprocedural cardiovascular examination. FINDINGS: Procedural Findings: One day rest/stress was used. Tc99m Sestamibi injected IV at rest was 12.2 millicuries 36.0 millicuries of Tc99M Sestamibi injected IV during Lexiscan stress Lexiscan 0.4mg administered IV over 10 seconds. Patient had no symptoms during stress test. Baseline heart rate was 60 BPM Maximum Heart Rate Achieved was: 80 BPM Baseline blood pressure was 122/78 mmHg Post Stress Blood Pressure was 122/72 mmHg Termination: Protocol complete. Resting ECG: Normal sinus rhythm. Post ECG: No diagnostic ST changes. Arrhythmia: No arrhythmias seen. Perfusion Findings: Normal perfusion imaging. No definite fixed or reversible defects. Technical quality of study is excellent. Prone imaging was not performed. Left ventricle cavity size at rest is normal. Left ventricle cavity size with stress is unchanged. A TID of 0.91 was automatically calculated. LV Function: Global left ventricular function is normal. Left ventricular ejection fraction is 66 %. CONCLUSIONS: Global left ventricular function is normal. Left ventricular ejection fraction is 66 %. Myocardial perfusion imaging is normal. Negative EKG portion of stress test. Electronically Signed By: Dr. Narayan Lopez 01/11/2025 12:27:59 PM CDT Electronically Signed By: Mike Manning MD 01/11/2025 5:09:16 PM CDT Procedure Note Mike Manning MD - 01/11/2025 [facility] Cardiology [address] [facility] [address], [place] [address] [address] [facility] [address] [address] P:[phone] P:[phone] MPI Imaging Report Patient Name: JOANIE GODOYLucy : 1945 Study Date: 01/11/2025 7:26:07 AM Gender: M Tech: [facility] Location: [facility] Provider: MIKE MANNING Height(Cm): 185.4 BSA: Weight(Kg): 96 BMI: 27.93 Order Provider: MIKE MANNING PHYSICIAN: Referring Physician: Dr. Wise. HCG Physician: Jamie Manning M.D. Interpreting Physician: Jamie Manning M.D. Stress Supervision: Narayan Lopez M.D. PROCEDURES: Pharmacologic SPECT Report: Myocardial perfusion imaging with Tc99M Sestamibi SPECT at rest and stresspost regadenoson (Lexiscan) infusion. INDICATIONS: Hypertension, Family Hx CAD, High Cholesterol, Former Smoker, I35.0Nonrheumatic aortic (valve) stenosis, R06.09 Other forms of dyspnea, and Z01.810 Encounter forpreprocedural cardiovascular examination. FINDINGS: Procedural Findings: One day rest/stress was used. Tc99m Sestamibi injected IV at rest was 12.2 millicuries 36.0 millicuries of Tc99M Sestamibi injected IV during Lexiscan stress Lexiscan 0.4mg administered IV over 10 seconds. Patient had no symptoms during stress test. Baseline heart rate was 60 BPM Maximum Heart Rate Achieved was: 80 BPM Baseline blood pressure was 122/78 mmHg Post Stress Blood Pressure was 122/72 mmHg Termination: Protocol complete. Resting ECG: Normal sinus rhythm. Post ECG: No diagnostic ST changes. Arrhythmia: No arrhythmias seen. Perfusion Findings: Normal perfusion imaging. No definite fixed or reversible defects.Technical quality of study is excellent. Prone imaging was not performed. Left ventricle cavitysize at rest is normal. Left ventricle cavity size with stress is unchanged. A TID of0.91 was automatically calculated. LV Function: Global left ventricular function is normal. Left ventricular ejectionfraction is 66 %. CONCLUSIONS: Global left ventricular function is normal. Left ventricular ejectionfraction is 66 %. Myocardial perfusion imaging is normal. Negative EKG portion of stress test. Electronically Signed By: Dr. Narayan Lopez 01/11/2025 12:27:59 PM CDT Electronically Signed By: Mike Manning MD 01/11/2025 5:09:16 PM CDT us Mike Manning MD IMG NM PROCEDURES Final R esult * MCT Mobile Cardiac Telemetry Event Monitor (01/04/2025 9:22 AM CDT) Anatomical Region Laterality Modality Electrocardiogra phy Narrative 01/19/2025 4:50 PM CDT AMBULATORY CONTRACT ANALYST REPORT Patient Name: Joanie Godoy Date of : 1945 Requesting Physician: Dr. Manning Date of interpretation: 01/19/25 Type of monitor : 14 day cardiac event monitor Date of the study/Enrollment period: 01/04/2025 through 01/17/2025 Indication: Dizziness and giddiness Quality of the study: Good Interpretation: A total of 13 days 6 hours and 14 minutes recorded and analyzed Underlying sinus rhythm with PVCs with average heart rate of 67 beats per minute. Minimum heart rate 37 beats per minute maximum heart rate 110 beats per minute. No atrial fibrillation was seen. Frequent ventricular ectopy totaling 78,872 beats which is 6% ectopic burden. Low-frequency supraventricular ectopy totaling 2739 beats which is less than 1% ectopic burden. Patient triggered event of non or accidental correlated to sinus rhythm with ventricular trigeminy. Another patient triggered event of accidental push sinus rhythm PVCs. Lightheadedness correlated sinus rhythm only with a heart rate of 77 beats per minute Tiredness or fatigue: Sinus rhythm with a PVC. Wireless auto triggered event at 12:03 a.m. correlated to be 3.2 second pause with heart rate 33 beats per minute and PVCs. Conclusions: Sinus rhythm heart rate variability between 37 and 110 beats per minute. Minimum heart rate occurred at 1:57 a.m. on 01/14/2025. Average heart rate 67 beats per minute 3.2 s pause at 12:03 a.m. on 01/16/2025 Frequent ventricular ectopy with 6% ectopic burden. Low-frequency supraventricular ectopy with less than 1% ectopic burden Symptom events correlated to sinus rhythm and on occasional association with PVCs Voice recognition software was used to complete this document, therefore, motion picture camera operator variances may occur. Mike Manning MD, [facility] 01/19/25 us Mike Manning MD [facility] PROCE PONCHO Final Result * Electrocardiogram Report (12/21/2024 4:18 PM SEPARATOR TENDER) Mike Manning MD ECG ORDERABLES Final Res ult * POCT lipid panel (12/21/2024 11:00 AM SEPARATOR TENDER) Cholesterol, POC 100 mg/dL HDL, POC 35 mg/dL Triglycerides, POC 52 mg/dL LDL Cholesterol POC 54.6 mg/dL Chol/HDL Ratio, POC na Non-HDL Cholesterol, POC na mg/dL Cholesterol Total, POC 100 mg/dL Capillary blood 12/21/2024 1 1:00 AM SEPARATOR TENDER Mike Manning MD POINT OF CARE TEST ORDERA BLES Edited Result - Final from Last 3 Months Insurance MEDICARE [employer] SENIOR SUPPLEMENT MEDICARE BLUE CROSS MEDICARE SUPPLEMENT MEDICARE [employer] SENIOR SUPPLEMENT Care Teams Bull Rider Relationship Specialty Start Date End Date Lenny Wise MD [address] [facility] [address] [place] [address] PCP - General Family Practice 12/21/24
--- OUTSIDE RECORDS SUMMARY | 2025-02-22 15:27 | XMS_ITS | Encounter Summary ---
Author Organization [facility] Address 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
--- OUTSIDE RECORDS SUMMARY | 2025-02-22 15:27 | XMS_ITS | Encounter Summary ---
Author Organization [facility] Address [address] [place] [address] Care Team Providers Care Supervisor Wool Shearing Name Role Phone Bartolome Arriola MD Primary Care Provider Unavailable Encounter Details Date Type Department Care Team (Late st Contact Info) Description 05/07/2000 Outpatient Historical [facility] GI [facility] Ar Zhang MD [address] [facility] [address] [place] [address] Observation and evaluation for other specified suspected conditions (Primary Dx) Social History Tobacco Use Types Packs/Day Years Used Date Smoking Tobacco: Never Assessed Sex and Gender Information Value Date Recorded Sex Assigned at Male 06/26/2024 8:42 AM CDT Legal Sex Male 4:17 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
--- OUTSIDE RECORDS SUMMARY | 2025-02-22 15:27 | XMS_ITS | Encounter Summary ---
Author Organization [facility] Address [address] [place] [address] Care Team Providers Care Pizza Hut Team Member Name Role Phone Bartolome Arriola MD Primary Care Provider Unavailable Encounter Details Date Type Department Care Team (Latest Contact Info) Description 05/01/2000 Outpatient Historical [facility] [employer] [employer] Moises Sears MD NO ADDRESS ON FILE Pure hypercholesterolemia (Primary Dx) Social History Tobacco Use Types Packs/Day Years Used Date Smoking Tobacco: Never Assessed Sex and Gender Information Value Date Recorded Sex Assigned at Male 06/26/2024 8:42 AM CDT Legal Sex Male 4:17 AM BIOTECH PRODUCTION SPECIALIST Gender Identity Male 06/26/2024 8:42 AM CDT Sexual Orientation Straight 06/26/2024 8: 42 AM CDT documented as of this encounter Plan of Treatment Not on file documented as of this encounter Visit Diagnoses Diagnosis Pure hypercholesterolemia- Primary documented in this encounter Care Teams [employer] Team Member Relationship Specialty Start Date End Date Bartolome Arriola MD PCP - General Internal Medicine 08/17/20 documented as of this encounter
--- OUTSIDE RECORDS SUMMARY | 2025-02-22 15:27 | XMS_ITS | Encounter Summary ---
Author Organization [facility] Address [address] [place] [address] Care Team Providers Care Field Marketing Representative Name Role Phone Bartolome Arriola MD Primary Care Provider Unavailable Encounter Details Date Type Department Care Team (Late st Contact Info) Description 04/06/2022 Digital Self COVID-1 9 Monitoring STL ABSTRACTION [...] CDT Legal Sex Male 4:17 AM MANAGER MEDICAL DEVICE Gender Identity Male 06/26/2024 8:42 AM CDT [...] on filedocumented in this encounter Care Teams Field Marketing Representative Relationship Specialty Start Date End Date Bartolome Arriola MD PCP - General Internal Medicine 08/17/20 documented as of this encounter
--- OUTSIDE RECORDS SUMMARY | 2025-02-22 15:27 | XMS_ITS | Encounter Summary ---
Author Organization [facility] Address [address] [place] [address] Care Team Providers Care Electronic Train Control Technician Name Role Phone Bartolome Arriola MD Primary Care Provider Unavailable Encounter Details Date Type Department Care Team (Late st Contact Info) Description 04/08/2022 Digital Self COVID-1 9 Monitoring STL ABSTRACTION [...] AM CDT Legal Sex Male 4:17 AM RETAIL ADVISOR Gender Identity Male 06/26/2024 8:42 AM CDT [...] on filedocumented in this encounter Care Teams Electronic Train Control Technician Relationship Specialty Start Date End Date Bartolome Arriola MD PCP - General Internal Medicine 08/17/20 documented as of this encounter
--- OUTSIDE RECORDS SUMMARY | 2025-02-22 15:27 | XMS_ITS | Encounter Summary ---
Author Organization [facility] Address [address] [place] [address] Care Team Providers Care Cleaner And Preparer Name Role Phone Bartolome Arriola MD Primary Care Provider Unavailable Encounter Details Date Type Department Care Team (Latest Contact Info) Description 06/02/2003 Outpatient Historical HIS [facility] JANNETTE Sears, Moises Ryan MD NO ADDRESS ON FILE ACUTE PHARYNGITIS (Primary Dx) Social History Tobacco Use Types Packs/Day Years Used Date Smoking Tobacco: Never Assessed Sex and Gender Information Value Date Recorded Sex Assigned at Male 06/26/2024 8:42 AM CDT Legal Sex Male 4:17 AM SHANK MAKER Gender Identity Male 06/26/2024 8:42 AM CDT Sexual Orientation Straight 06/26/2024 8: 42 AM CDT documented as of this encounter Plan of Treatment Not on file documented as of this encounter Visit Diagnoses Diagnosis Acute pharyngitis- Primary documented in this encounter Care Teams Cleaner And Preparer Relationship Specialty Start Date End Date Bartolome Arriola MD PCP - General Internal Medicine 08/17/20 documented as of this encounter
--- OUTSIDE RECORDS SUMMARY | 2025-02-22 15:27 | XMS_ITS | Referral Summary ---
Author Organization [facility] Address [address] [place] [address] Care Team Providers Care Furrier Designer Name Role Phone Lenny Wise MD Primary Care Provider Encounters Date Type Department Care Team Description 01/12/2025 Results Follow-Up [facility] Cardiology [address] [place], [place] [address] [place] [phone] Mike Manning MD 01/11/2025 7:45 AM CDT Ancillary Procedure [facility] Cardiology [address] [place] [address] [place] [phone] 01/04/2025 1:30 PM CDT Ancillary Procedure [facility] Cardiology [address] [place] [address] [place] [phone] Lightheadedness 12/21/2024 11:15 AM PACKAGING CLERK Office Visit [facility] Cardiology [address] [place] [phone] Mike Manning MD Lipid screening (Primary Dx); Nonrheumatic aortic (valve) stenosis; Essential hypertension; Lightheadedness; PITT (dyspnea on exertion); Pre-operative cardiovascular examination; Bilateral lower extremity edema from Last 3 Months Allergies Active Allergy Reactions Criticality Noted Date [...] artificial joint 03/06/2017 Osteoarthritis of hip 07/03/2016 Social History Tobacco Use Types Packs/Day Years Used Date Smoking Tobacco: Never Smokeless Tobacco: Former Tobacco Cessation:Counseling Given: Not Answered Comments:54 years agp previous Sex and Gender Information Value Date Recorded Sex Assigned at Not on file 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:53 PM PACKAGING CLERK Gender Identity Male 08/29/2021 9:39 AM PACKAGING CLERK Sexual Orientation Straight 08/29/2021 9: 39 AM PACKAGING CLERK Last Filed Vital Signs Vital Sign Reading Time Taken Comments Blood Pressure 126/70 12/21/2024 11:05 AM PACKAGING CLERK Pulse 62 12/21/2024 11:05 AM PACKAGING CLERK Temperature 36.5 C (97.7 F) 09/19/2021 4:46 PM PACKAGING CLERK Respiratory Rate 18 12/21/2024 11:05 AM PACKAGING CLERK Oxygen Saturation 95% 12/21/2024 11:05 AM PACKAGING CLERK Inhaled Oxygen Concentration - - Weight 96 kg (211 lb 9.6 oz) 12/21/2024 11:05 AM PACKAGING CLERK Height 185.4 cm (6' 1 ) 12/21/2024 11:05 AM PACKAGING CLERK Body Mass Index 27.92 12/21/2024 11:05 AM PACKAGING CLERK Plan of Treatment Not on file Procedures Procedure Name Priority Date/Time Associated Diagnosis Comments NM MPI SPECT (REST AND/OR STRESS) MULTIPLE STUDIES Schedule Routine, Read Routine (OP Routine) 01/11/2025 9:56 AM CDT Nonrheumatic aortic (valve) stenosis PITT (dyspnea on exertion) Pre-operative cardiovascular examination MCT - MOBILE CARDIAC TELEMETRY EVENT MONITOR Routine 01/04/2025 9:22 AM CDT Lightheadedness ELECTROCARDIOGRAM REPORT Routine 12/21/2024 4:18 PM PACKAGING CLERK Nonrheumatic aortic (valve) stenosis Pre-operative cardiovascular examination POCT LIPID PANEL Routine 12/21/2024 11:00 AM PACKAGING CLERK Lipid screening from Last 3 Months Results * NM MPI SPECT (Rest and/or Stress) Multiple Studies (01/11/2025 9:56 AM CDT) Anatomical Region Laterality Modality Body N/A Nuclear Medicine 01/11/2025 7:26 AM CDT Narrative 01/11/2025 6:21 PM CDT [facility] Cardiology [address] [facility] [address], [place] [address] [address] [facility] [address], [place] [address] P:[phone] P:[phone] MPI Imaging Report Patient Name: JOANIE GODOYLucy : 1945 Study Date: 01/11/2025 7:26:07 AM Gender: M Tech: RAMIRO DECKER Location: [facility] Provider: MIKE MANNING Height(Cm): 185.4 BSA: Weight(Kg): [...] Procedure Note Mike Manning MD - 01/11/2025 [facility] Cardiology [address] [facility] [address], [place] [address] [address] [facility] [address], [place] [address] P:[phone] P:[phone] MPI Imaging Report Patient Name: JOANIE GODOYLucy : 1945 Study Date: 01/11/2025 7:26:07 AM Gender: M Tech: [facility] Location: [facility] Provider: MIKE MANNING Height(Cm): 185.4 BSA: Weight(Kg): [...] phy Narrative 01/19/2025 4:50 PM CDT AMBULATORY CONSULTING APPLICATION ENGINEER REPORT Patient Name: Joanie Godoy Date of [...] was used to complete this document, therefore, high school mathematics teacher variances may occur. Mike Manning MD, [facility] 01/19/25 Mike Manning MD CV [facility] Final Result * Electrocardiogram Report (12/21/2024 4:18 PM PACKAGING CLERK) Miek Manning MD ECG ORDERABLES Final Res ult * POCT lipid panel (12/21/2024 11:00 AM PACKAGING CLERK) Cholesterol, POC 100 mg/dL HDL, POC 35 mg/dL Triglycerides, POC 52 mg/dL LDL Cholesterol POC 54.6 mg/dL Chol/HDL Ratio, POC na Non-HDL Cholesterol, POC na mg/dL Cholesterol Total, POC 100 mg/dL Capillary blood 12/21/2024 1 1:00 AM PACKAGING CLERK Mike Manning MD POINT OF CARE TEST ORDERA BLES Edited Result - Final from Last 3 Months Insurance MEDICARE [facility] SENIOR SUPPLEMENT MEDICARE [facility] MEDICARE SUPPLEMENT MEDICARE [employer] SENIOR SUPPLEMENT Care Teams Furrier Designer Relationship Specialty Start Date End Date Lenny Wise MD [address] [facility] [address] [place] [id number] PCP - General Family Practice 12/21/24
--- OUTSIDE RECORDS SUMMARY | 2025-02-22 15:27 | XMS_ITS | Encounter Summary ---
Author Organization [facility] Address [address] [place] [address] Care Team Providers Care Information Technology Program Manager Name Role Phone Bartolome Arriola MD Primary [...] AM CDT Legal Sex Male 4:17 AM HEEL FORMER Gender Identity Male 06/26/2024 8:42 AM CDT [...] on filedocumented in this encounter Care Teams Information Technology Program Manager Relationship Specialty Start Date End Date Bartolome Arriola MD PCP - General Internal Medicine 08/17/20 documented as of this encounter
--- OUTSIDE RECORDS SUMMARY | 2025-02-22 15:27 | XMS_ITS | Encounter Summary ---
Author Organization [facility] Address [address] [place] [address] Care Team Providers Care Dump Truck Operator Name Role Phone Bartolome Arriola MD [...] AM CDT Legal Sex Male 4:17 AM VISITOR SERVICES TECHNICIAN Gender Identity Male 06/26/2024 8:42 AM [...] on filedocumented in this encounter Care Teams Dump Truck Operator Relationship Specialty Start Date End Date Bartolome Arriola MD PCP - General Internal Medicine 08/17/20 documented as of this encounter
--- OUTSIDE RECORDS SUMMARY | 2025-02-22 15:27 | XMS_ITS | Encounter Summary ---
Author Organization [employer] Address [address] [place] [address] Care Team Providers Care Lead Ingot Molder Name Role Phone Bartolome Arriola MD Primary Care Provider Unavailable Encounter Details Date Type Department Care Team (Late st Contact Info) Description 03/30/2004 Outpatient Historical [facility] Support Serv. ([facility]) [address] [place] [address] Emory Ellsworth MD NO ADDRESS ON FILE Social History Tobacco Use Types Packs/Day Years Used Date Smoking Tobacco: Never Assessed Sex and Gender Information Value Date Recorded Sex Assigned at Male 06/26/2024 8:42 AM CDT Legal Sex Male 4:17 AM CLOTHING WORKER Gender Identity Male 06/26/2024 8:42 AM CDT Sexual Orientation Straight 06/26/2024 8: 42 AM CDT documented as of this encounter Plan of Treatment Not on file documented as of this encounter Visit Diagnoses Not on filedocumented in this encounter Care Teams Lead Ingot Molder Relationship Specialty Start Date End Date Bartolome Arriola MD PCP - General Internal Medicine 08/17/20 documented as of this encounter
--- OUTSIDE RECORDS SUMMARY | 2025-02-22 15:27 | XMS_ITS | Encounter Summary ---
Author Organization [facility] Address [address] [place] [address] Care Team Providers Care Machinery Mover Name Role Phone Bartolome Arriola MD Primary [...] AM CDT Legal Sex Male 4:17 AM TITLE AGENT Gender Identity Male 06/26/2024 8:42 AM CDT [...] on filedocumented in this encounter Care Teams Machinery Mover Relationship Specialty Start Date End Date Bartolome Arriola MD PCP - General Internal Medicine 08/17/20 documented as of this encounter
--- OUTSIDE RECORDS SUMMARY | 2025-02-22 15:27 | XMS_ITS | Encounter Summary ---
Author Organization [facility] Address [address] [place] [address] Care Team Providers Care Home Attendant Name Role Phone Bartolome Arriola MD Primary [...] AM CDT Legal Sex Male 4:17 AM LIQUID NATURAL GAS PLANT OPERATOR Gender Identity Male 06/26/2024 8:42 AM [...] on filedocumented in this encounter Care Teams Home Attendant Relationship Specialty Start Date End Date Bartolome Arriola MD PCP - General Internal Medicine 08/17/20 documented as of this encounter
--- OUTSIDE RECORDS SUMMARY | 2025-02-22 15:27 | XMS_ITS | Encounter Summary ---
Author Organization [employer] Address [address] [place] [address] Care Team Providers Care Gun Profiler Name Role Phone Bartolome Arriola MD Primary Care Provider Unavailable Encounter Details Date Type Department Care Team (Latest Contact Info) Description 02/12/1999 Outpatient Historical HIS [facility] JANNETTE Sears, Moises Ryan MD NO ADDRESS ON FILE Injury, other and unspecified, finger (Primary Dx) Social History Tobacco Use Types Packs/Day Years Used Date Smoking Tobacco: Never Assessed Sex and Gender Information Value Date Recorded Sex Assigned at Male 06/26/2024 8:42 AM CDT Legal Sex Male 4:17 AM HERB COUNSELOR Gender Identity Male 06/26/2024 8:42 AM CDT Sexual Orientation Straight 06/26/2024 8: 42 AM CDT documented as of this encounter Plan of Treatment Not on file documented as of this encounter Visit Diagnoses Diagnosis Injury, other and unspecified, finger- Primary documented in this encounter Care Teams Gun Profiler Relationship Specialty Start Date End Date Bartolome Arriola MD PCP - General Internal Medicine 08/17/20 documented as of this encounter
--- OUTSIDE RECORDS SUMMARY | 2025-02-22 15:27 | XMS_ITS | Encounter Summary ---
Author Organization [facility] Address [address] [place] [address] Care Team Providers Care Dehydrator Operator Name Role Phone Bartolome Arriola MD Primary Care Provider Unavailable Encounter Details Date Type Department Care Team (Late st Contact Info) Description 05/20/2005 Outpatient Historical [facility] Valentín Rock MD NO ADDRESS ON FILE RECTAL & ANAL HEMORRHAGE (Primary Dx) Social History Tobacco Use Types Packs/Day Years Used Date Smoking Tobacco: Never Assessed Sex and Gender Information Value Date Recorded Sex Assigned at Male 06/26/2024 8:42 AM CDT Legal Sex Male 4:17 AM HR COORDINATOR Gender Identity Male 06/26/2024 8:42 AM CDT Sexual Orientation Straight 06/26/2024 8: 42 AM CDT documented as of this encounter Plan of Treatment Not on file documented as of this encounter Visit Diagnoses Diagnosis Hemorrhage of rectum and anus- Primary documented in this encounter Care Teams Dehydrator Operator Relationship Specialty Start Date End Date Bartolome Arriola MD PCP - General Internal Medicine 08/17/20 documented as of this encounter
== END 2025-02-22 15:24 | disposition home or self-care (01) ==
PROVIDERS: PCP Family Medicine; Visit Provider Orthopaedic Surgery
DX: M17.11 Unilateral primary osteoarthritis, right knee (principal)
CPT/HCPCS: 73700

== ENCOUNTER 2025-04-18 10:30 | Emergency (ER) | payer MEDICARE, SELFPAY ==
--- NOTE | 2025-04-18 10:33 | ED_ITS ---
HPI - Wound/Laceration General Chief Complaint: Wound/Laceration Stated Complaint: Cut Right Leg Source: patient and RN notes reviewed Mode of arrival: ambulatory Limitations: no limitations History of Present Illness HPI narrative: Patient is a 79-year-old male who presents to the [facility] with complaints of wound to his right anterior lower leg. Patient states that he was removing his shoes when the sole of his shoe cut his right lower leg on Friday. Patient states that since that time, he has noted a yellow drainage from the wound along with some weeping and redness around the wound. He denies recent fevers. Distal neurovascular and motor status intact. Patient presents to the [facility] with notable wound to the right anterior lower leg with purulent drainage and surrounding erythema. Related Data Home Medications ?Medication ?Instructions ?Recorded ?Confirmed ?Last Taken ?Type fluticasone propionate 50 50 spray intranasal BID 06/27/23 04/18/25 Unknown History mcg/actuation nasal spray,suspension cholecalciferol (vitamin D3) 125 125 mcg PO EVERY OTHER DAY 11/18/23 04/18/25 Unknown History mcg (5,000 unit) capsule levocetirizine 5 mg tablet 5 mg PO DAILY 11/18/23 04/18/25 Unknown History qempkwjm-kza-ptndf acid 0.4 1 tablet PO DAILY 11/18/23 04/18/25 Unknown History mg-lycopene 300 mcg-lutein 250 mcg tablet (Centrum Silver) polyethylene glycol 3350 17 17 g PO DAILY 11/18/23 04/18/25 Unknown History gram/dose oral powder (Miralax) turmeric root extract 500 mg 500 mg PO DAILY 11/18/23 04/18/25 Unknown History capsule testosterone cypionate 200 mg/mL 100 mg IM WEEKLY 01/14/24 04/18/25 Unknown History intramuscular oil Allergies Allergy/AdvReac Type Severity Reaction Status Date / Time Penicillins Allergy Mild Unknown Verified 04/18/25 10:54 amoxicillin Allergy Unknown SOB Verified 04/18/25 10:54 cat dander Allergy Unknown Unknown Verified 04/18/25 10:54 clavulanic acid Allergy Unknown SOB Verified 04/18/25 10:54 house dust Allergy Unknown Unknown Verified 04/18/25 10:54 pollen extracts Allergy Unknown Unknown Verified 04/18/25 10:54 shellfish derived Allergy Unknown Unknown Verified 04/18/25 10:54 ciprofloxacin AdvReac Joint Pain Verified 04/18/25 10:54 Review of Systems Review of Systems: CONSTITUTIONAL: Denies fever, chills, or sweats. EYES: Denies visual changes, redness, or discharge. ENT: Denies otalgia and sore throat CARDIOVASCULAR: Denies chest pain, palpitations, or edema. RESPIRATORY: Denies cough or dyspnea. GASTROINTESTINAL: Denies abdominal pain, nausea, vomiting, or diarrhea. GENITOURINARY: Denies dysuria or hematuria. SKIN: Reports wound to right lower leg. MUSCULOSKELETAL: Denies back pain, joint pain, or myalgia. NEUROLOGIC: Denies headache, numbness, or weakness. Pertinent positives per HPI. [facility] Past Medical History Medical History Prediabetes Aortic stenosis, mild Gastritis (~05/2024) Hypogonadism in male Chronic eczematous otitis externa of left ear Allergic rhinitis Chronic venous insufficiency of lower extremity Vitamin D deficiency Osteoarthritis Hyperlipidemia Hypertension Surgical History Surgical History History of total left hip replacement (~2014) History of cataract surgery Left Eye (Dr. Vel Chino, [facility]) 2023; Right Eye (Dr. Vel Chino, [facility]) 2023 History of right hip replacement (~2015) History of cholecystectomy (~2016) S/P trigger finger release b/l multiple - 2017, 2018 Hx of tonsillectomy (~1950) Family History Family History Other Cancer Family history non-contributory Social History Social History Smoking status: Former smoker Tobacco type: cigarettes and pipe Smoking end date: 12/18/76 Alcohol intake: current Alcohol use details: 2 per month Substance use: never Substance use type: does not use Do You Feel Safe in your Home?: Yes Lack of Transportation: No Lack of Food: Never True Current Housing: I Have Housing Concerned About Future Housing: No Difficulty Paying Gas/Electric Bills: No Difficulty Paying for Meds: No Currently Unemployed: No Education: Master's Degree or Higher Difficulty w/ Childcare or Family Care: No Living arrangements: with family Occupation/Education: retired Additional occupation/education comments: 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 There is no relevant family history pertinent to the patient complaint. Exam Narrative: GENERAL: This is a well-nourished, well-developed patient, in no apparent distress. HEAD: normocephalic, atraumatic. EYES: Sclera clear/white. Vision is grossly intact. EARS: External ears normal. Hearing grossly intact. NOSE: External nose normal with no obvious nasal discharge, nares without redness, no rhinorrhea. THROAT: Mucous membranes moist, posterior pharynx clear. NECK: Neck supple, non-tender without lymphadenopathy, masses or thyromegaly. CARDIOVASCULAR: Regular rate and rhythm without murmurs, gallops, or rubs. RESPIRATORY: Clear to auscultation. Breath sounds equal bilaterally. No wheezes, rales, or rhonchi. GASTROINTESTINAL: Abdomen soft. No guarding. SKIN: 1.5 cm wound to the right anterior lower leg with purulent drainage. Surrounding erythema present. Patient's exam consistent with wound infection with surrounding cellulitis. NEURO: awake, alert, and oriented to person, place and time. There were no obvious focal neurologic abnormalities. Course Course Level of Care: Express Care Visit Vital Signs Vital signs: Vital Signs Temperature 97.9 F 04/18/25 10:51 Pulse Rate 65 04/18/25 10:51 Respiratory Rate 16 04/18/25 10:51 Blood Pressure 157/76 H 04/18/25 10:51 Pulse Oximetry 98 04/18/25 10:51 Oxygen Delivery Room Air 04/18/25 10:51 Temperature 97.9 F 04/18/25 10:51 Pulse Rate 65 04/18/25 10:51 Respiratory Rate 16 04/18/25 10:51 Blood Pressure 157/76 H 04/18/25 10:51 Pulse Oximetry 98 04/18/25 10:51 Oxygen Delivery Room Air 04/18/25 10:51 Reviewed MDM - Wound/Laceration MDM Narrative Medical decision making narrative: Clean with soap and water only; Avoid using alcohol and peroxide. Elevate the affected area if possible Alternate Tylenol/ibuprofen for as needed for pain Acetaminophen(Tylenol) 650- 1000mg every 4-6hours with max of 4000mg/day. Nonsteroidal anti-inflammatory agent (NSAIDs-ibuprofen): 400mg every 4-6hours with max 2400mg/day Take antibiotic until it's gone. Please schedule a follow up visit with your personal physician for further evaluation and treatment within 3-5days OR if your symptoms persist, change or worsen significantly before you can contact your personal physician then please, without delay, go to the emergency department for further evaluation. Differential Diagnosis Differential diagnosis: Likely laceration, abrasion, avulsion of skin and other (cellulitis, wound infection) Critical Care Time Critical Care Time Critical Care Time: No Discharge Plan Discharge Clinical Impression: Cellulitis of right anterior lower leg, Wound infection, Eczema Patient Disposition: Home Condition: Stable Instructions: Antibiotic Form, Cellulitis (ED), Eczema (ED) Additional Instructions: Clean with soap and water only; Avoid using alcohol and peroxide. Elevate the affected area if possible Alternate Tylenol/ibuprofen for as needed for pain Acetaminophen(Tylenol) 650- 1000mg every 4-6hours with max of 4000mg/day. Nonsteroidal anti-inflammatory agent (NSAIDs-ibuprofen): 400mg every 4-6hours with max 2400mg/day Take antibiotic until it's gone. Please schedule a follow up visit with your personal physician for further evaluation and treatment within 3-5days OR if your symptoms persist, change or worsen significantly before you can contact your personal physician then please, without delay, go to the emergency department for further evaluation. Patient Language: South African Prescriptions: New cephalexin 500 mg capsule 500 mg PO Q8H 10 Days Qty: 30 0RF triamcinolone acetonide 0.1 % ointment 1 applic topical TID PRN (Reason: Eczema) Qty: 453.6 0RF No Action fluticasone propionate 50 mcg/actuation spray,suspension 50 spray INTRANASAL BID testosterone cypionate 200 mg/mL oil 100 mg IM WEEKLY cholecalciferol (vitamin D3) 125 mcg (5,000 unit) capsule 125 mcg PO EVERY OTHER DAY Centrum Silver 0.4 mg-300 mcg- 250 mcg tablet 1 tablet PO DAILY levocetirizine 5 mg tablet 5 mg PO DAILY polyethylene glycol 3350 [Miralax] 17 gram/dose powder 17 g PO DAILY turmeric root extract 500 mg capsule 500 mg PO DAILY celecoxib 200 mg capsule 200 mg PO DAILY Qty: 90 0RF amlodipine 10 mg tablet 10 mg PO DAILY Qty: 90 2RF omeprazole 20 mg capsule,delayed release(DR/EC) 20 mg PO DAILY Qty: 30 3RF atorvastatin 40 mg tablet 40 mg PO QHS Qty: 90 1RF metoprolol succinate 25 mg tablet extended release 24 hr 25 mg PO DAILY Qty: 90 1RF Follow-up/Referrals: Brian Wise MD [Primary Care Provider] - Time of Disposition: 11:13
[2025-04-18 10:51] VITALS: BP 157/76; PULSE 65; RESP 16; TEMP 36.6; O2SAT 98
== END 2025-04-18 11:18 | disposition home or self-care (01) ==
PROVIDERS: Emergency Provider Nurse Practitioner; PCP Family Medicine
DX: L03.115 Cellulitis of right lower limb (principal); S81.801A Unspecified open wound, right lower leg, initial encounter; W22.8XXA Striking against or struck by other objects, initial encounter; L30.9 Dermatitis, unspecified; Z87.891 Personal history of nicotine dependence; R73.03 Prediabetes; I35.0 Nonrheumatic aortic (valve) stenosis; M19.90 Unspecified osteoarthritis, unspecified site; I10 Essential (primary) hypertension; E78.5 Hyperlipidemia, unspecified; E55.9 Vitamin D deficiency, unspecified; Z96.643 Presence of artificial hip joint, bilateral
CPT/HCPCS: 99213; G0463

== ENCOUNTER 2025-04-29 12:51 | Outpatient (CLI) | payer MEDICARE, SELFPAY ==
--- OUTSIDE RECORDS SUMMARY | 2025-04-29 12:58 | XMS_ITS | Encounter Summary ---
Author Organization [facility] Address 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
--- OUTSIDE RECORDS SUMMARY | 2025-04-29 12:58 | XMS_ITS | Encounter Summary ---
Author Organization [facility] Address 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
--- OUTSIDE RECORDS SUMMARY | 2025-04-29 12:58 | XMS_ITS | Encounter Summary ---
Author Organization [facility] Address 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
--- OUTSIDE RECORDS SUMMARY | 2025-04-29 12:58 | XMS_ITS | Encounter Summary ---
Author Organization [facility] Address 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
--- OUTSIDE RECORDS SUMMARY | 2025-04-29 12:58 | XMS_ITS | Encounter Summary ---
Author Organization [email or web address] Address 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
--- OUTSIDE RECORDS SUMMARY | 2025-04-29 12:58 | XMS_ITS | Encounter Summary ---
Author Organization [facility] Address 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
--- OUTSIDE RECORDS SUMMARY | 2025-04-29 12:58 | XMS_ITS | Encounter Summary ---
Author Organization [facility] Address [address] [place] [address] Care Team Providers Care Service Superintendent Name Role Phone Bartolome Arriola MD Primary [...] AM CDT Legal Sex Male 4:17 AM VOCATIONAL PSYCHOLOGIST Gender Identity Male 06/26/2024 8:42 AM CDT [...] on filedocumented in this encounter Care Teams Service Superintendent Relationship Specialty Start Date End Date Bartolome Arriola MD PCP - General Internal Medicine 08/17/20 documented as of this encounter
--- OUTSIDE RECORDS SUMMARY | 2025-04-29 12:58 | XMS_ITS | Data Portability ---
Author Organization [employer] [facility] Address [address] [place] [id number] Care Team Providers Care Intake Counselor Name Role Phone TEJAS SOLIS Primary Care Provider Unavailabl e Assessment Encounter Date Assessment Date Assessment LastModified by Organization Details LastModified Time 03/17/2019 03/17/2019 Feel patient is a good candidate for BMAC/fat of left elbow. Patient given information regarding same. May follow up if wishes to pursue. Return for worsening symptoms. Greater than 25 minutes was spent with the patient in direct evaluation and subsequent care planning. History, exam and diagnostic information was communicated with Dr. Bowen and he was directly involved in the treatment decision. [email or web address] Not available 03/17/2019 11:16:13 Plan of Treatment Reminders Order Date Submit Date Provider Last Modified By Organization Details Last Modified Time Details Appointments None recorded. Lab PSA, serum or plasma - Non-fastin g 2018 019 [employer] [facility], [address], [address], [place], [address], 9 01:05:07 vitamin D, 25-hydroxy , total, serum - Non-fastin g 2018 019 [employer] [facility], [address], [address], [place], [address], 9 01:05:07 testostero ne, free, serum - Non-fastin g 2018 019 [employer] [facility], [address], [address], [place], [address], 9 01:05:07 testostero ne, total, serum - Non-fastin g 2018 019 [email or web address], [address], [address], [place], [address], 9 01:05:06 CBC w/ auto diff - Non-fastin g 2018 019 [facility], [address], [address], [place], [address], 9 01:05:06 Referral None recorded. Procedures None recorded. Surgeries None recorded. Imaging XR, knee - Pt in lobby, please return him to the lobby after his xray and I'll grab him when my room is available 2019 020 [email or web address] Not available 0 14:02:00 XR, elbow - room 6 2018 019 Not available 9 11:24:33 Medication Orders None recorded. Patient TargetsNo targets recorded. Patient Instructions Encounter Date Encounter Id Patient Instructions Last Modified By Organization Details Last Modified Time 07/02/2018 [id number] knee arthritis: care instructions Not available 07/02/2018 09:44:27 Reason for Referral None Reported. Results Created Date Observation Date Name Description Value Unit Range Abnormal Flag Note LastModifiedBy Organization Detail LastModifiedTime 03/17/20 19 03/21/2019 CBC w/ auto diff white blood cell count 7.2 thous and/u L 3.8-10 .8 normal Not Available [facility] [address] [place], [address], 03/21/2019 01:05:06 03/17/20 19 03/21/2019 CBC w/ auto diff red blood cell count 4.02 kiesha on/uL 4.20-5 .80 low Not Available [facility] [address] [place], [address], 03/21/2019 01:05:06 03/17/20 19 03/21/2019 CBC w/ auto diff hemoglobin 12.3 g/dL 13.2-1 7.1 low Not Available [address], [address], 03/21/2019 01:05:06 03/17/20 19 03/21/2019 CBC w/ auto diff hematocrit 37.4 % 38.5-5 0.0 low Not Available [address], [address], 03/21/2019 01:05:06 03/17/20 19 03/21/2019 CBC w/ auto diff MCV 93.0 fL 80.0-1 00.0 normal Not Available [address], [address], 03/21/2019 01:05:06 03/17/20 19 03/21/2019 CBC w/ auto diff MCH 30.6 pg 27.0-3 3.0 normal Not Available [address], [address], 03/21/2019 01:05:06 03/17/20 19 03/21/2019 CBC w/ auto diff MCHC 32.9 g/dL 32.0-3 6.0 normal Not Available [address], [address], 03/21/2019 01:05:06 03/17/20 19 03/21/2019 CBC w/ auto diff RDW 12.7 % 11.0-1 5.0 normal Not Available [address], [address], 03/21/2019 01:05:06 03/17/20 19 03/21/2019 CBC w/ auto diff platelet count 275 thous and/u L 140-40 0 normal Not Available [address], [address], 03/21/2019 01:05:06 03/17/20 19 03/21/2019 CBC w/ auto diff MPV 11.1 fL 7.5-12 .5 normal Not Available [address], [address], 03/21/2019 01:05:06 03/17/20 19 03/21/2019 CBC w/ auto diff absolute neutrophils 4522 cells /uL 1500-7 800 normal Not Available [address], [address], 03/21/2019 01:05:06 03/17/20 19 03/21/2019 CBC w/ auto diff absolute lymphocytes 1757 cells /uL 850-39 00 normal Not Available [address], [address], 03/21/2019 01:05:06 03/17/20 19 03/21/2019 CBC w/ auto diff absolute monocytes 734 cells /uL 200-95 0 normal Not Available [address], [address], 03/21/2019 01:05:06 03/17/20 19 03/21/2019 CBC w/ auto diff absolute eosinophils 158 cells /uL 15-500 normal Not Available [address], [address], 03/21/2019 01:05:06 03/17/20 19 03/21/2019 CBC w/ auto diff absolute basophils 29 cells /uL 0-200 normal Not Available [address], [address], 03/21/2019 01:05:06 03/17/20 19 03/21/2019 CBC w/ auto diff neutrophils 62.8 % normal Not Available [address], [address], 03/21/2019 01:05:06 03/17/20 19 03/21/2019 CBC w/ auto diff lymphocytes 24.4 % normal Not Available [facility] [place] [address] [place], [address], 03/21/2019 01:05:06 03/17/20 19 03/21/2019 CBC w/ auto diff monocytes 10.2 % normal Not Available [facility] [place] [address] [place], [address], 03/21/2019 01:05:06 03/17/2003/21/2019 CBC w/ auto diff eosinophils 2.2 % normal Not Available [facility] [place] [address] [place], [address], 03/21/2019 01:05:06 03/17/2003/21/2019 CBC w/ auto diff basophils 0.4 % normal Not Available [email or web address] [address] [place], [address], 03/21/2019 01:05:06 03/17/2003/21/2019 testo stero ne, total , serum testosterone , total, males (adult), ia 40 NG/dL 250-82 7 low In hypog onada l males , Testo stero ne, Total , LC/MS /MS, is the recom rupali d assay due to the dimin ished accur acy of immun oassa y at level s below 250 ng/dL . This test code (1598 3) must be colle cted in a red-t op tube with no gel. Not Available [email or web address] [address] [place], [address], 03/21/2019 01:05:06 03/17/2003/21/2019 PSA, serum or plasm a PSA, total 0.5 NG/mL < or = 4.0 normal The total PSA value from this assay juliane m is stand ardiz ed again st the WHO stand marcelino. The test resul t will be appro ximat kodi 20% lower when ryan red to the equim olar- stand ardiz ed total PSA (Gudino man Coult er). Ryan rison of seria l PSA resul ts shoul d be inter prete d with this fact in mind. This test was perfo rmed using the Sieme ns chemi lumin escen t metho d. Value s obtai sami from diffe rent assay metho ds canno t be used inter sharpe eably . PSA level s, regar dless of value , shoul d not be inter prete d as absol [place] evide nce of the prese nce or absen ce of disea se. Not Available [facility] [address] [address] [place], [address], 03/21/2019 01:05:06 03/17/2003/21/2019 vitam in D, 25-hy droxy , total , serum vitamin D,25-oh,tota l,ia 26 NG/mL 30-100 low Vitam in D Statu s 25-OH Vitam in D: Defic iency : <20 ng/mL Insuf ficie ncy: 20 - 29 ng/mL Optim al: > or = 30 ng/mL For 25-OH Vitam in D testi ng on patie nts on D2-stuart pplem entat ion and patie nts for whom quant itati on of D2 and D3 fract ions is requi red, the Quest Assur eD(TM ) 25-OH VIT D, (D2,D 3), LC/MS /MS is recom rupali d: order code 35211 (primitivo ents >2yrs ). For more infor asa garcia on this test, go to: http: //radha millan stdia gnost ics.c om/fa q/FAQ 163 (This link is being provi ded for infor asa nal/e ducat ional purpo ses only. ) Not Available [facility] [address] [place], [address], 03/21/2019 01:05:07 03/17/2003/21/2019 testo stero ne, free, serum testosterone , free 4.3 pg/mL 6.0-73 .0 low This test was devel oped and its marjan tical perfo rmanc e jean cteri stics have been deter mined by [email or web address] [facility] sing[facility] Wynn [facility]. It has not been clear ed or appro brittany by the US Food and Drug Admin istra tion. This assay has been valid ated pursu ant to the CLIA regul ation s and is used for clini tristan purpo ses. Not Available [facility] [address] [address] [place], [address], 03/21/2019 01:05:07 06/05/20 19 06/09/2019 CBC w/ auto diff white blood cell count 7.8 thous and/u L 3.8-10 .8 normal Not Available [facility] [address] [place] [address] [place], [address], 06/09/2019 17:08:21 06/05/20 19 06/09/2019 CBC w/ auto diff red blood cell count 5.06 kiesha on/uL 4.20-5 .80 normal Not Available [facility] [address] [address] [place], [address], 06/09/2019 17:08:21 06/05/20 19 06/09/2019 CBC w/ auto diff hemoglobin 15.3 g/dL 13.2-1 7.1 normal Not Available [facility] [address] [address] [place], [address], 06/09/2019 17:08:21 06/05/20 19 06/09/2019 CBC w/ auto diff hematocrit 46.9 % 38.5-5 0.0 normal Not Available [facility] [address] [address] [place], [address], 06/09/2019 17:08:21 06/05/20 19 06/09/2019 CBC w/ auto diff MCV 92.7 fL 80.0-1 00.0 normal Not Available [facility] [address] [address] [place], [address], 06/09/2019 17:08:21 06/05/20 19 06/09/2019 CBC w/ auto diff MCH 30.2 pg 27.0-3 3.0 normal Not Available [address], [address], 06/09/2019 17:08:21 06/05/20 19 06/09/2019 CBC w/ auto diff MCHC 32.6 g/dL 32.0-3 6.0 normal Not Available [address], [address], 06/09/2019 17:08:21 06/05/20 19 06/09/2019 CBC w/ auto diff RDW 12.7 % 11.0-1 5.0 normal Not Available [address], [address], 06/09/2019 17:08:21 06/05/20 19 06/09/2019 CBC w/ auto diff platelet count 319 thous and/u L 140-40 0 normal Not Available [address], [address], 06/09/2019 17:08:21 06/05/20 19 06/09/2019 CBC w/ auto diff MPV 10.4 fL 7.5-12 .5 normal Not Available [address], [address], 06/09/2019 17:08:21 06/05/20 19 06/09/2019 CBC w/ auto diff absolute neutrophils 4859 cells /uL 1500-7 800 normal Not Available [address], [address], 06/09/2019 17:08:21 06/05/20 19 06/09/2019 CBC w/ auto diff absolute lymphocytes 1716 cells /uL 850-39 00 normal Not Available [address], [address], 06/09/2019 17:08:21 06/05/20 19 06/09/2019 CBC w/ auto diff absolute monocytes 1084 cells /uL 200-95 0 high Not Available [address] [address] [place], [address], 06/09/2019 17:08:21 06/05/20 19 06/09/2019 CBC w/ auto diff absolute eosinophils 101 cells /uL 15-500 normal Not Available [address] [address] [place], [address], 06/09/2019 17:08:21 06/05/20 19 06/09/2019 CBC w/ auto diff absolute basophils 39 cells /uL 0-200 normal Not Available [address] [address] [place], [address], 06/09/2019 17:08:21 06/05/20 19 06/09/2019 CBC w/ auto diff neutrophils 62.3 % normal Not Available [address] [place], [address], 06/09/2019 17:08:21 06/05/20 19 06/09/2019 CBC w/ auto diff lymphocytes 22.0 % normal Not Available [address], [address], 06/09/2019 17:08:21 06/05/20 19 06/09/2019 CBC w/ auto diff monocytes 13.9 % normal Not Available [address] [address] [place], [address], 06/09/2019 17:08:21 06/05/20 19 06/09/2019 CBC w/ auto diff eosinophils 1.3 % normal Not Available [address] [address] [place], [address], 06/09/2019 17:08:21 06/05/20 19 06/09/2019 CBC w/ auto diff basophils 0.5 % normal Not Available [address] [address] [place], [address], 06/09/2019 17:08:21 06/05/20 19 06/09/2019 vitam in D, 25-hy droxy , total , serum vitamin D,25-oh,tota l,ia 60 NG/mL 30-100 normal Vitam in D Statu s 25-OH Vitam in D: Defic iency : <20 ng/mL Insuf ficie ncy: 20 - 29 ng/mL Optim al: > or = 30 ng/mL For 25-OH Vitam in D testi ng on patie nts on D2-stuart pplem entat ion and patie nts for whom quant itati on of D2 and D3 fract ions is requi red, the Quest Assur eD(TM ) 25-OH VIT D, (D2,D 3), LC/MS /MS is recom rupali d: order code 95937 (primitivo ents >2yrs ). For more infor asa garcia on this test, go to: http: //[facility] marcie garcia.wilmar stdia gnost ics.c om/fa q/FAQ 163 (This link is being provi ded for infor asa nal/e ducat ional purpo ses only. ) Not Available [facility] [address] [address] [address], [place], [address], 06/09/2019 17:08:22 06/05/20 19 06/09/2019 testo stero ne, total , serum testosterone , total, MS 1594 NG/dL 250-11 00 high Men with clini pramod signi fican t hypog onada l sympt oms and testo stero ne value s repea tedly in the range of the 200-3 00 ng/dL or less, may benef it from testo stero ne treat ment after adequ ate risk and benef its couns eling . Peewee a from J Clin Inves t 1974: 53:81 9-828 and J Clin Endoc rinol Metab 1973; 36:11 32-11 42. Men with clini pramod signi fican t hypog onada l sympt oms and testo stero ne value s repea tedly in the range of the 200-3 00 ng/dL or less, may benef it from testo stero ne treat ment after adequ ate risk and benef its couns eling . For addit ional infor mike bolivar e refer to http: //radha millan stdia gnost ics.c om/fa q/FAQ 165 (This link is being provi ded for infor asa santizo/ educa carlos l purpo ses only. ) This test was devel oped and its marjan tical perfo rmanc e jean cteri stics have been deter mined by [employer]. It has not been clear ed or appro brittany by the US Food and Drug Admin istra tion. This assay has been valid ated pursu ant to the CLIA regul ation s and is used for clini tristan purpo ses. Not Available [facility] [address] [address] [place], [address], 06/09/2019 17:08:22 06/05/20 19 06/09/2019 testo stero ne, free, serum testosterone , free 214.6 pg/mL 6.0-73 .0 high This test was devel oped and its marjan tical perfo rmanc e jean cteri stics have been deter mined by [employer]. It has not been clear ed or appro brittany by the US Food and Drug Admin istra tion. This assay has been valid ated pursu ant to the CLIA regul ation s and is used for clini tristan purpo ses. Not Available [facility] [address] [place], [address], 06/09/2019 17:08:23 09/21/20 19 09/24/2019 testo stero ne, free, serum testosterone , free 352.8 pg/mL 6.0-73 .0 high This test was devel oped and its marjan tical perfo rmanc e jean cteri stics have been deter mined by [employer]. It has not been clear ed or appro brittany by the FDA. This assay has been valid ated pursu ant to the CLIA regul ation s and is used for clini tristan purpo ses. Not Available [facility] [address] [address] [address], [place], [address], 09/24/2019 18:34:58 09/21/2009/24/2019 hemog lobin + hemat ocrit , blood hemoglobin 15.9 g/dL 13.2-1 7.1 normal Not Available [facility] [address] [place] [address] [address], [place], [address], 09/24/2019 18:34:59 09/21/2009/24/2019 hemog lobin + hemat ocrit , blood hematocrit 49.3 % 38.5-5 0.0 normal Not Available [facility] [address] [address] [address], [place], [address], 09/24/2019 18:34:59 09/21/2009/24/2019 vitam in D, 25-hy droxy , total , serum vitamin D,25-oh,tota l,ia 63 NG/mL 30-100 normal Vitam in D Statu s 25-OH Vitam in D: Defic iency : <20 ng/mL Insuf ficie ncy: 20 - 29 ng/mL Optim al: > or = 30 ng/mL For 25-OH Vitam in D testi ng on patie nts on D2-stuart pplem entat ion and patie nts for whom quant itati on of D2 and D3 fract ions is requi red, the Quest Assur eD(TM ) 25-OH VIT D, (D2,D 3), LC/MS /MS is recom rupali d: order code 48704 (primitivo ents >2yrs ). For more infor asa garcia on this test, go to: http: //radha cohenia gnost ics.c om/fa q/FAQ 163 (This link is being provi ded for infor asa nal/e ducat ional purpo ses only. ) Not Available [address] [address] [address], [place], [address], 09/24/2019 18:34:59 09/21/2009/24/2019 testo stero ne, total , serum testosterone , total, MS 2123 NG/dL 250-11 00 high Men with clini pramod signi fican t hypog onada l sympt oms and testo stero ne value s repea tedly in the range of the 200-3 00 ng/dL or less, may benef it from testo stero ne treat ment after adequ ate risk and benef its couns eling . For addit ional infor mike bolivar e refer to http: //[facility] marcie garcia.que stdia gnost ics.c om/fa q/Tot al Testo stero neLCM SMS (This link is being provi ded for infor asa nal/e ducat ional purpo ses only. ) This test was devel oped and its marjan tical perfo rmanc e jean cteri stics have been deter mined by [employer]. It has not been clear ed or appro brittany by the FDA. This assay has been valid ated pursu ant to the CLIA regul ation s and is used for clini tristan purpo ses. Not Available [facility] [address] [place], [address], 09/24/2019 18:34:59 11/20/1911/23/2020 testo stero ne, free, serum testosterone , free 71.8 pg/mL 6.0-73 .0 This test was devel oped and its marjan tical perfo rmanc e jean cteri stics have been deter mined by [employer]. It has not been clear ed or appro brittany by the FDA. This assay has been valid ated pursu ant to the CLIA regul ation s and is used for clini tristan purpo ses. Not Available [facility] [address] [place], [address], 11/23/2020 20:19:26 11/20/1911/23/2020 PSA, serum or plasm a PSA, total 1.2 NG/mL < or = 4.0 normal The total PSA value from this assay jose martin m is stand ardiz ed again st the WHO stand marcelino. The test resul t will be appro ximat kodi 20% lower when ryan red to the equim olar- stand ardiz ed total PSA (Gudino man Coult er). Ryan rison of seria l PSA resul ts shoul d be inter prete d with this fact in mind. This test was perfo rmed using the Sieme ns chemi lumin escen t metho d. Value s obtai sami from diffe rent assay metho ds canno t be used inter sharpe eably . PSA level s, regar dless of value , shoul d not be inter prete d as absol [place] evide nce of the prese nce or absen ce of disea se. Not Available [facility] [address] [address] [place], [address], 11/23/2020 20:19:27 11/20/19 21 11/23/2020 vitam in D, 25-hy droxy , total , serum vitamin D,25-oh,tota l,ia 85 NG/mL 30-100 normal Vitam in D Statu s 25-OH Vitam in D: Defic iency : <20 ng/mL Insuf ficie ncy: 20 - 29 ng/mL Optim al: > or = 30 ng/mL For 25-OH Vitam in D testi ng on patie nts on D2-stuart pplem entat ion and patie nts for whom quant itati on of D2 and D3 fract ions is requi red, the Quest Assur eD(TM ) 25-OH VIT D, (D2,D 3), LC/MS /MS is recom rupali d: order code [id number] (primitivo ents >2yrs ). See Note 1 Note 1 For addit ional infor mike bolivar e refer to http: //radha Horvath gnkiana ics.c om/fa q/FAQ 199 (This link is being provi ded for infor asa santizo/ educmarilyn arguello purpo ses only. ) Not Available [facility] [address] [place], [address], 11/23/2020 20:19:27 11/20/19 21 11/23/2020 testo stero ne, total , serum testosterone , total, MS 610 NG/dL 250-11 00 Men with clini pramod signi fican t hypog onada l sympt oms and testo stero ne value s repea tedly in the range of the 200-3 00 ng/dL or less, may benef it from testo stero ne treat ment after adequ ate risk and benef its couns eling . For addit ional infor mike bolivar e refer to http: //[facility] marcie garcia.que stdia gnost ics.c om/fa q/Tot al Testo stero neLCM SMS (This link is being provi ded for infor asa nal/e ducat ional purpo ses only. ) This test was devel oped and its marjan tical perfo rmanc e jean cteri stics have been deter mined by [employer]. It has not been clear ed or appro brittany by the FDA. This assay has been valid ated pursu ant to the CLIA regul ation s and is used for clini tristan purpo ses. Not Available [facility] [address] [address], [place], [address], 11/23/2020 20:19:28 05/11/20 24 05/14/2024 PSA, TOTAL WITH REFLE X TO PSA, FREE PSA, total 1.3 NG/mL < or = 4.0 The Total PSA value from this assay syste m is stand ardiz ed again st the equim olar PSA stand marcelino. The test resul t will be appro ximat kodi 20% highe r when ryan red to the WHO-s tanda rdize d Total PSA (Siem ens assay ). Ryan rison of seria l PSA resul ts shoul d be inter prete d with this fact in mind. PSA was perfo rmed using the Beckm an Coult er Immun oassa y metho d. Value s obtai sami from diffe rent assay metho ds canno t be used inter sharpe eably . PSA level s, regar dless of value , shoul d not be inter prete d as absol [place] evide nce of the prese nce or absen ce of [facility]. Not Available [address], [address], 05/14/2024 13:25:15 06/07/2006/10/2024 TESTO STERO NE, FREE, BIOAV AILAB LE AND TOTAL , MS albumin 3.9 g/dL 3.6-5. 1 Not Available [address], [address], 06/10/2024 07:39:48 06/07/2006/10/2024 TESTO STERO NE, FREE, BIOAV AILAB LE AND TOTAL , MS sex hormone binding globulin 60.6 nmol/ L Not Available [address], [address], 06/10/2024 07:39:48 06/07/20 24 06/10/2024 TESTO STERO NE, FREE, BIOAV AILAB LE AND TOTAL , MS testosterone , free 116.6 pg/mL 6.0-73 .0 high Not Available [address], [address], 06/10/2024 07:39:48 06/07/20 24 06/10/2024 TESTO STERO NE, FREE, BIOAV AILAB LE AND TOTAL , MS testosterone ,bioavailabl e 209.4 NG/dL 15.0-1 50.0 high Not Available [address], [address], 06/10/2024 07:39:48 06/07/2006/10/2024 TESTO STERO NE, FREE, BIOAV AILAB LE AND TOTAL , MS testosterone , total, MS 1216 NG/dL 250-11 00 high For addit ional mike huizar e refer to https ://ed alexisati on.dodie abbasi Konutkredisi.com.tr. com/f aq/FA Q165 (This link is being provi ded for infor matio nal/e ducat ional purpo ses only. ) (Note ) This test was devel locoed and its marjan tical perfo rmanc e jean cteri stics have been deter mined by [employer]. It has not been clear ed or appro brittany by the FDA. This assay has been valid ated pursu ant to the CLIA regul ation s and is used for clini tristan purpo ses. MDF med fusio n [address] [facility] [address] [place] [address] [phone] [facility] Berry MD, PhD Not Available [facility] [address] [place], [address], 06/10/2024 07:39:48 06/07/20 24 06/10/2024 CBC (INCL UDES DIFF/ PLT) white blood cell count 7.3 thous and/u L 3.8-10 .8 normal Not Available [address], [address], 06/10/2024 07:39:48 06/07/20 24 06/10/2024 CBC (INCL UDES DIFF/ PLT) red blood cell count 4.89 kiesha on/uL 4.20-5 .80 normal Not Available [address] [address] [place], [address], 06/10/2024 07:39:48 06/07/20 24 06/10/2024 CBC (INCL UDES DIFF/ PLT) hemoglobin 15.6 g/dL 13.2-1 7.1 normal Not Available [email or web address] [address], [address], 06/10/2024 07:39:48 06/07/20 24 06/10/2024 CBC (INCL UDES DIFF/ PLT) hematocrit 48.0 % 38.5-5 0.0 normal Not Available [address], [address], 06/10/2024 07:39:48 06/07/20 24 06/10/2024 CBC (INCL UDES DIFF/ PLT) MCV 98.2 fL 80.0-1 00.0 normal Not Available [address], [address], 06/10/2024 07:39:48 06/07/20 24 06/10/2024 CBC (INCL UDES DIFF/ PLT) MCH 31.9 pg 27.0-3 3.0 normal Not Available [address], [address], 06/10/2024 07:39:48 06/07/20 24 06/10/2024 CBC (INCL UDES DIFF/ PLT) MCHC 32.5 g/dL 32.0-3 6.0 normal Not Available [address], [address], 06/10/2024 07:39:48 06/07/20 24 06/10/2024 CBC (INCL UDES DIFF/ PLT) RDW 13.3 % 11.0-1 5.0 normal Not Available [address], [address], 06/10/2024 07:39:48 06/07/20 24 06/10/2024 CBC (INCL UDES DIFF/ PLT) platelet count 202 thous and/u L 140-40 0 normal Not Available [address], [address], 06/10/2024 07:39:48 06/07/20 24 06/10/2024 CBC (INCL UDES DIFF/ PLT) MPV 11.7 fL 7.5-12 .5 normal Not Available [address], [address], 06/10/2024 07:39:48 06/07/20 24 06/10/2024 CBC (INCL UDES DIFF/ PLT) absolute neutrophils 4504 cells /uL 1500-7 800 normal Not Available [address], [address], 06/10/2024 07:39:48 06/07/20 24 06/10/2024 CBC (INCL UDES DIFF/ PLT) absolute lymphocytes 1803 cells /uL 850-39 00 normal Not Available [address], [address], 06/10/2024 07:39:48 06/07/20 24 06/10/2024 CBC (INCL UDES DIFF/ PLT) absolute monocytes 825 cells /uL 200-95 0 normal Not Available [address], [address], 06/10/2024 07:39:48 06/07/20 24 06/10/2024 CBC (INCL UDES DIFF/ PLT) absolute eosinophils 139 cells /uL 15-500 normal Not Available [address], [address], 06/10/2024 07:39:48 06/07/20 24 06/10/2024 CBC (INCL UDES DIFF/ PLT) absolute basophils 29 cells /uL 0-200 normal Not Available [address], [address], 06/10/2024 07:39:48 06/07/20 24 06/10/2024 CBC (INCL UDES DIFF/ PLT) neutrophils 61.7 % normal Not Available [address], [address], 06/10/2024 07:39:48 06/07/20 24 06/10/2024 CBC (INCL UDES DIFF/ PLT) lymphocytes 24.7 % normal Not Available [address], [address], 06/10/2024 07:39:48 06/07/20 24 06/10/2024 CBC (INCL UDES DIFF/ PLT) monocytes 11.3 % normal Not Available [facility] [address] [address] [place], [address], 06/10/2024 07:39:48 06/07/20 24 06/10/2024 CBC (INCL UDES DIFF/ PLT) eosinophils 1.9 % normal Not Available [facility] [address] [address] [place], [address], 06/10/2024 07:39:48 06/07/20 24 06/10/2024 CBC (INCL UDES DIFF/ PLT) basophils 0.4 % normal Not Available [facility] [address] [address] [place], [address], 06/10/2024 07:39:48 06/07/20 24 06/10/2024 ESTRA DIOL estradiol 57 pg/mL < or = 39 high Refer ence range estab lishe d on post- puber burke patie nt popul ation . No pre-p ubert al refer ence range estab lishe d using this assay . For any patie nts for whom low Estra diol level s are antic ipate d (e.g. males , pre-p ubert al child dereck and hypog onada l/pos t-men opaus al femal es), the [facility] Inst[facility] t[facility] Estra diol, Ultra sensi tive, LCMSM S assay is recom rupali d (orde r code 31888 ). Plebrant e note: patie nts being treat ed with the drug fulve stran t (Fasl odex( R)) have demon strat ed signi fican t inter feren ce in immun oassa y metho ds for estra diol measu remen t. The cross react ivity could lead to false ly eleva amy estra diol test resul ts leadi ng to an inapp ropri ate clini tristan asses sment of estro gen statu s. [facility] order code 01754 -Estr adiol , Ultra sensi tive LC/MS /MS demon strat es negli gible cross react ivity with fulve stran t. Not Available [id number], [place], [address], 06/10/2024 07:39:49 10/06/20 19 08/25/2019 physi tristan aly py* No observ ation record ed. BARCODE Not Available 2018 18:42:59 Result Notes None recorded. Problems Name Problem SNOMED Code Status Onset Date Resolution Date Notes Provider Name and Address Organization Details Recorded Time Pain of hip region 60007592 Active Latia Saavedralieu [address], [place], [address], [employer] [place] - [employer] [facility] 5 10:20:05 Osteoarthritis of hip 821812773 Active Latia Ojo Caliente [address], [place], [address], [employer] [place] - [employer] [facility] 5 10:20:05 Sciatica 31459816 Active Latia Ojo Caliente [address], [place], [address], [employer] [place] [employer] [facility] 5 10:20:05 Chronic sciatica 237855169 Active Latia Tasia [address], [place], [address], [employer] [place] [employer] [facility] 5 10:20:05 Problem Notes None recorded. Procedures Surgical History Date Name Laterality Status Provider Name and Address Organization Details Recorded Time 07/12/20 24 Laboratory Test completed Bruno Bardales [address], [place], [address], [employer] [place] [facility] 07/12/2024 11:11:25 12/08/19 20 Generic Procedure completed GREGORY PADGETT [address], [place], [address], [employer] [place] [facility] 12/08/2019 15:20:36 03/17/20 19 Generic Procedure completed [place] [employer] 03/17/2019 11:14:38 05/21/20 18 Generic Procedure completed LASHAWN NICOLAS PA-C [address], [place], [address], [facility] [employer], [facility] 05/22/2018 00:26:49 07/14/20 17 Generic Procedure completed LASHAWN NICOLAS PA-C [address], [place], [address], [facility] [employer], [facility] 07/14/2017 12:53:12 04/19/20 09 Colonoscopy completed Latia Dozier [address], [place], [address], [facility] [employer], [facility] 01/10/2015 15:01:41 10/20/19 01 Flexible Sigmoidoscopy completed Latia Dozier [address], [place], [address], [facility] [employer], [facility] 01/10/2015 15:01:41 03/20/19 50 Tonsillectomy completed Latia Dozier [address], [place], [address], [facility] [employer], [facility] 01/10/2015 15:01:41 Joint Replacement completed Millicentbridgette Armenta [facility] [employer] [facility] [employer] [facility], [facility] 12/08/2019 14:07:54 Hip Surgery completed Millicent Armenta [facility] [employer] [facility], [facility] 12/08/2019 14:07:54 Gastrointestinal Surgery completed Millicentbridgette Armenta [facility] [employer] [facility], [facility] 12/08/2019 14:07:54 Imaging Results None recorded. Procedure Notes None recorded. Medical Equipment None Reported. Allergies Allergen ID Allergen Name Allergen Category Reaction Reaction Severity Criticality Documentation Date Start Date Code Code System Note Provider Name and Address Organization Details Recorded Time cat hair extract medicatio n Not available Not available Not available 01/10/20151987 94338 3 RxNorm Millicent meraz [facility] [employer], [facility] 0 14:07:03 78118 short ragweed pollen extract medicatio n Not available Not available Not available 01/10/20151969 83308 5 RxNorm Latia Dozier [address],[facility] [address], [place], [address], [facility], [facility] 5 15:00:13 201[address] shellfish derived food,medi cation Not available Not available Not available 01/10/20151984 55347 UNK Millicent Armenta [facility], [facility], [facility] 0 14:07:03 17869 Augmentin medicatio n Not available Not available Not available 07/14/2017 [address]9740 2 RxNorm Millicent meraz [facility], [facility] 0 14:07:03 37067 cat dander environme nt Not available Not available Not available 12/08/2019 [address] [employer] Ar[facility] [facility], [facility] 0 14:07:03 Medications Name Sig Start Date Stop Date Status Note LastModified by Organization Details LastModified Time losartan 50 mg tablet active Not Available Not Available No t Available atorvastatin 40 mg tablet active Not Available Not Available Not Available BD Luer-Krystal Syringe 3 mL 25 x 1 1/2 USE TO INJECT TESTOSTERON E EVERY WEEK DIRECTED active Not Available Not Available No t Available prednisone 10 mg tablet active Not Available Not Available Not Available doxycycline hyclate 100 mg capsule active Not Available Not Available N ot Available clindamycin HCl 300 mg capsule active Not Available Not Available Not Available ofloxacin 0.3 % eye drops active Not Available Not Available Not Available tizanidine 4 mg tablet active Not Available Not Available No t Available hydrocodone 5 mg-acetamino phen 325 mg tablet Take 1 tablet every 6 hours by oral route as needed for 7 days. 2018 active Not Available Not Available Not Avai lable flurbiprofen 0.03 % eye drops active Not Available Not Available Not Available meloxicam 15 mg tablet active Not Available Not Available No t Available prednisone 20 mg tablet active Not Available Not Available Not Available clindamycin HCl 150 mg capsule active Not Available Not Available Not Available amlodipine 5 mg tablet 5 mg every day by oral route. active Not Available Not Available No t Available ciprofloxaci n 500 mg tablet active Not Available Not Available Not Available sulfamethoxa zole 800 mg-trimethop rim 160 mg tablet active Not Available Not Available Not Available omeprazole 40 mg capsule,adi yed release active Not Available Not Available Not Available simvastatin 40 mg tablet 40 mg by oral route. active Not Available Not Available Not Available oxycodone-ac etaminophen 5 mg-325 mg tablet active Not Available Not Available Not Available ofloxacin 0.3 % ear drops active Not Available Not Available Not Available prednisolone acetate 1 % eye drops,suspen nina active Not Available Not Available Not Available ciprofloxaci n 0.3 % eye drops active Not Available Not Available Not Available erythromycin 5 mg/gram (0.5 %) eye ointment APPLY A SMALL AMOUNT ONTO LEFT EYE TWICE DAILY FOR 10 DAYS DIRECTED active Not Available Not Available Not Available neomycin-wilfredo ymyxin-dexam eth 3.5 mg/mL-10,000 unit/mL-0.1% eye drops SHAKE WELL AND INSTILL 1 DROP INTO THE LEFT EYE THREE TIMES DAILY FOR 7 DAYS active Not Available Not Available N ot Available omeprazole 20 mg capsule,adi yed release active Not Available Not Available Not Available etodolac 400 mg tablet active Not Available Not Available No t Available montelukast 10 mg tablet active Not Available Not Available Not Available mupirocin 2 % topical ointment active Not Available Not Available Not Available azelastine 137 mcg (0.1 %) nasal spray active Not Available Not Available Not Available diazepam 10 mg tablet Take 1 tablet(s) 30 mins PRIOR to appointment PRN and repeat as directed by physician. active Not Available Not Available N ot Available testosterone cypionate 200 mg/mL intramuscula r oil INJECT 1 ML IN THE MUSCLE EVERY WEEK 2024 active Not Available Not Available Not Avai lable methylpredni solone 4 mg tablets in a dose pack active Not Available Not Available No t Available fluticasone propionate 50 mcg/actuatio n nasal spray,suspen nina active Not Available Not Available Not Available BD Luer-Krystal Syringe 3 mL 21 gauge x 1 USE DIRECTED FOR TESTOSTERON E INJECTION 2020 active Not Available Not Available Not Avai lable mometasone 0.1 % topical cream active Not Available Not Available Not Available diazepam 5 mg tablet active Not Available Not Available No t Available Ciprodex 0.3 %-0.1 % ear drops,suspen nina active Not Available Not Available Not Available BD Regular Bevel Call 25 gauge x 1 1/2 USE TO INJECT TESTOSTERON E IN THE MUSCLE EVERY WEEK 2021 active Not Available Not Available Not Avai lable tizanidine 4 mg capsule active Not Available Not Available N ot Available Fluticasone Propionate (Nasal) 1994 active Not Available Not Available Not Avai lable cholecalcife rol (vitamin D3) 1,250 mcg (50,000 unit) capsule TAKE 1 CAPSULE BY MOUTH EVERY WEEK NEEDED active Not Available Not Available No t Available BD Eclipse Luer-Krystal 25 gauge x 1 1/2 needle Use to Inj Testosteron e via IM route every week 2020 active Not Available Not Available Not Avai lable Gavilyte-C 240 gram-22.72 gram-6.72 gram-5.84 gram oral solution active Not Available Not Available Not Available Shingrix (PF) 50 mcg/0.5 mL intramuscula r suspension, kit active Not Available Not Available Not Available TDVAX 2 Lf unit-2 Lf unit/0.5 mL intramuscula r suspension active Not Available Not Available Not Available Fluzone High-Dose Quad 2020-21 (PF) 240 mcg/0.7 mL IM syringe ADMINISTER 0.7ML IN THE MUSCLE DIRECTED active Not Available Not Available Not Available [employer] ech COVID-19 Vaccine (PF) 30 mcg/0.3 mL IM susp (purple) ADMINISTER 0.3ML IN THE MUSCLE DIRECTED active Not Available Not Available Not Available Paxlovid 300 mg (150 mg x 2)-100 mg tablets in a dose pack PLEASE SEE ATTACHED FOR DETAILED DIRECTIONS active Not Available Not Available N ot Available Lagevrio 200 mg capsule (EUA) active Not Available Not Available Not Available Vitals Date Recorded Body height Body mass index (BMI) Body weight Heart rate Systolic And Diastolic Provider Name and Address Organization Details Last Updated DateTime 12/08/2019 187.96 cm 27.9 kg/m2 59472.54 g 79 /min 148/79 mm[Hg] Millicent Armenta [facility] [employer] [facility] [employer] [facility], [facility] 12/08/2019 14:05:59 Date Recorded Body height Body mass index (BMI) Body weight Heart rate Systolic And Diastolic Provider Name and Address Organization Details Last Updated DateTime 03/17/2019 187.96 cm 27.9 kg/m2 70737.54 g 67 /min 164/79 mm[Hg] Abigail Decker [employer] 9 10:12:02 Date Recorded Body height Body mass index (BMI) Body weight Heart rate Systolic And Diastolic Provider Name and Address Organization Details Last Updated DateTime 06/18/2018 187.96 cm 27.9 kg/m2 58923.54 g 65 /min 126/84 mm[Hg] Abigail Decker [employer] ([employer] 8 15:34:22 Date Recorded Body height Body mass index (BMI) Body weight Heart rate Systolic And Diastolic Provider Name and Address Organization Details Last Updated DateTime 07/02/2018 187.96 cm 27.9 kg/m2 40976.54 g 67 /min 122/80 mm[Hg] Latia Dozier [address], [place], [address] , [employer]) 07/02/2018 09:44:13 Social History Question Answer Notes LastModified by Organizat ion Details LastModified Time Tobacco Smoking Status Former Smoker Latia Dozier [address], [place], [address], [employer], [facility] 01/10/2015 15:01:21 Do You Have An Advance Directive? Yes Information not available 01/10/2015 Auto Related Injury? No Information not available 01/10/2015 What Is Your Level Of Caffeine Consumption? Moderate Information not available 01/10/2015 How Much Tobacco Do You Chew? None Information not available 01/10/2015 Diabetes No Information no t available 01/10/2015 What Type Of Diet Are You Following? REGULAR Information not available 01/10/2015 Which Illicit Or Recreational Drugs Have You Used? No Information not available 01/10/2015 Who Is Your Employer? [employer] Information not available 01/10/2015 Which Of Your Hands Is Dominant? Right Information not available 01/10/2015 Hard Of Hearing Or Deaf In One Or Both Ears? No Information not available 01/10/2015 High Blood Pressure Yes Information not available 01/10/2015 High Cholesterol Yes Informat ion not available 01/10/2015 Hobbies/Activitie s Reading, Movies, Games Information not available 01/10/2015 Single Or Multi-level Home/work? Single Level Home Information not available 01/10/2015 Legally Blind In One Or Both Eyes? No Information no t available 01/10/2015 Live Alone Or With Others? With Others Information not available 01/10/2015 Marital Status Informatio n not available 01/10/2015 What Was The Date Of Your Most Recent Tobacco Screening? 03/17/2019 Information not available 05/13/2019 If Injured, Is Litigation Ongoing? No Information not available 01/10/2015 What Is Your Parents' Marital Status? Information not available 01/10/2015 Performs Monthly Self-breast Exam? No Information no t available 01/10/2015 Do You Use Protection During Sex? No Information not available 01/10/2015 What Is The Name Of Your School? [employer]: Undergrad Information not available 01/10/2015 Seat Belts Used Routinely Yes Information not available 01/10/2015 Are You Sexually Active? Yes Information not available 01/10/2015 Number Of Sexual Partners 1 Information not available 01/10/2015 Smoke Alarm In Home Yes Information not available 01/10/2015 How Much Tobacco Do You Smoke? No Information not available 01/10/2015 What Types Of Sporting Activities Do You Participate In? Stationary Bike Information not available 01/10/2015 Do You Use Sunscreen Routinely? Yes Information not available 01/10/2015 How Many Years Have You Smoked Tobacco? 9 Information not available 01/10/2015 Work Related Injury? No Information not available 01/10/2015 Year In School College Informatio n not available 01/10/2015 Sex: Unknown Functional Status Question Answer Note LastModified by Organizat ion Details LastModified Time What is your level of alcohol consumption? Occasional Information not available 01/10/2015 Are you currently employed? 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 Moderate Information not available 01/10/2015 Mental Status None recorded. Family History Relationship Description Onset Age of this Age Resolved Age Notes LastModified by Organization Details LastModified Time Maternal Aunt Mental disorder 21 85 Not available 01/10 15:05:09 Maternal Aunt Depressive disorder 21 85 Not available 01/10 15:05:09 Maternal Grandmother Diabetes mellitus [email or web address] Not available 2019 14:07:12 Maternal Grandmother Depressive disorder [email or web address] Not available 2019 14:07:12 Unspecified Relation Mental disorder [email or web address] Not available 2019 14:07:12 Medical History Condition Response Other Cancer N HIV or AIDS N Coronary Artery Disease N Gout N Kidney Stones N Hyperthyroidism N Breast Cancer N Head Trauma/Injury N Hernia N Lung Cancer N Hypothyroidism N Lung Disease N Depression N COPD N Blood Clots N Pacemaker N Anxiety Disorder N Arthritis Y Kidney Cancer N Cancer N Stroke N Leg or Foot Ulcers N Neck Injury N High Cholesterol Y Liver Disease N Rheumatoid Arthritis N Fibromyalgia N Headaches N Kidney Disease N Heart Problems N Prostate Cancer N Migraines N Thyroid Problems N Anemia N Multiple Sclerosis N Ulcers N Heart Attack ([place]) N Diabetes N Bleeding Disorder N Seizures/Epilepsy N Tuberculosis N Urinary Tract Infection N Back Problems Y Diverticulitis N Asthma N Lupus N Peripheral Vascular Disease N Sleep Disorder N GERD/Reflux N Hepatitis N Aneurysm N Thyroid Cancer N Heart Disease N Pulmonary Embolism N Hypertension Y Osteoporosis N Immunizations Vaccine Type Date Status Note Provider Nam e and Address Organization Details Recorded Time tetanus toxoid, unspecified formulation 07/01/200 5 completed Latia Tasia [address], [place], [address], [employer] [facility], [facility] 01/10/2015 15:02:12 polio, unspecified formulation 5 completed Latia Tasia [address], [place], [address], [facility] [employer] [facility], [facility] 01/10/2015 15:02:12 Influenza, split virus, trivalent, preservative 4 completed Latia Ojo Caliente [address], [place], [address], [facility] [employer] [facility], [facility] 01/10/2015 15:02:12 Past Encounters Encounter ID Performer Location Encounter Start Date Encounter Closed Date Diagnosis/Indication Diagnosis SNOMED-CT Code Diagnosis ICD10 Code Diagnosis Note [id number] Kings Bowen MD [facility] [address] [facility] [address] [place] [address] 01/10/2015 14:26:27 01/10/2015 16:12:40 Pain of hip region 35121361 Osteoarthritis of hip 027492835 Sciatica 13593249 Chronic sciatica 139084559 [id number] Kings Bowen MD [facility] [address] 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 [facility] [address] [place] [address] 10/23/2017 08:53:38 10/23/2017 10:34:38 Knee pain 83815384 M25.561 M25.562 Osteoarthr itis of knee 199761906 M17.0 Chondromal acia of patella 67938784 M22.41 M22.42 Derangemen t of meniscus 172847705 M23.251 [id number] Kings Bowen MD [facility] [address] [place] [address] 01/20/2018 11:33:15 01/20/2018 13:31:46 Knee pain 53037228 M25.561 M25.562 Osteoarthr itis of knee 170933083 M17.0 Chondromal acia of patella 79084702 M22.41 M22.42 Derangemen t of meniscus 472460280 M23.251 [id number] Kings Bowen MD [facility] [address] [place] [address] 05/21/2018 14:59:30 05/21/2018 16:01:23 Knee pain 09168514 M25.561 M25.562 Osteoarthr itis of knee 098889339 M17.0 Chondromal acia of patella 37198547 M22.41 M22.42 Derangemen t of meniscus 317748887 M23.251 [id number] Kings Bowen MD [facility] [address] [place] [address] 06/04/2018 14:57:10 06/04/2018 16:08:54 Knee pain 41927650 M25.561 M25.562 Osteoarthr itis of knee 083635283 M17.0 Chondromal acia of patella 82342040 M22.41 M22.42 Derangemen t of meniscus 634871632 M23.251 [id number] Kings Bowen MD [facility] [address] [place] [address] 06/18/2018 15:06:53 06/18/2018 15:50:59 [id number] Kings Bowen MD [facility] [address] [place] [address] 07/02/2018 08:30:28 07/02/2018 09:18:44 Osteoarthritis of knee 991736956 M17.11 M17.12 [id number] GREGORY PADGETT [facility] [address] [place] [address] 03/17/2019 09:54:40 03/17/2019 10:52:21 Pain of elbow region 73009532 M25.522 Malaise and fatigue 2717 58327 R53.83 M89.9 M94.9 Z12.5 Z01.812 R53.81 Lateral epicondylitis 20 8772224 M77.12 Osteoarthr itis of elbow 233912430 M19.022 [id number] GREGORY PADGETT [facility] [address] [facility] [address] [place] [address] 12/08/2019 13:12:58 12/14/2019 10:35:59 Knee pain 36357188 M25.562 Osteoarthr itis of left knee joint 3054457311 92124 M17.12 at today's office visit I had discussed with the patient that I do feel that his pain and discomfort is originatin g from the exercises that he was doing with the abduction exercises at [employer]. This started his pain and discomfort is improving since he has discontinu ed the exercises. We had a discussion about [facility] modifying activity that bothers his knees. All questions were answered. He understood the treatment plan. Greater than 30 minutes face-to-fa ce visit with more than 15 minutes of my time spent counseling the patient about their diagnosis including pathophysi ology and treatment options. [id number] Bruno Jeffy [facility] [address] [place] [address] 07/12/2024 10:32:54 07/12/2024 10:51:04 Male hypogonadism 89002225 E29.1 Stay the course with testostero ne replacemen t therapy. Follow-up in 6 months for repeat lab work. Health Concerns Section Related Observation LastModified by Organization Detai ls LastModified Time None Recorded Concern Status LastModified by Organization Details LastModified Time None Recorded Advance Directives Directive Y: Payers Insurance Date Sequence Insurance Name Policy Number Policy Woodson Covered Member ID Woodson Member ID Guarantor Name 07/16/2017 2 [employer]OH[employer] CONSUMER (MEDICARE SUPPLEMENT) Herson Godoy [id number] Herson Godoy 01/10/2015 1 *SELF PAY* Hafsa solange Godoy 12/15/2024 1 [place] Herson Godoy [id number] Herson Godoy 12/15/2024 2 [place] [id number] Herson Godoy [id number] Herson Godoy 2024 2 [employer] (MEDICARE SUPPLEMENT) Herson Godoy [id number] Herson Godoy Notes Date Note Type Note Provider Name and Address Organization Details Recorded Time 03/17/2019 text/html 73 y/o male presents with lateral left elbow pain. Patient reports pain has been going on for the past 9 months. No known specific injury. He reports pain with lifting gallons and playing with his grandchild. Pain occasionally radiates down LUE. Notes improvement with advil and icing. He had two prior cortisone injections, last 10/26/2018, with minimal improvements. He was then scheduled for surgery with Dr. Lock and decided to cancel last minute after researching online. 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 He enjoys riding a stationary bike. He had BMAC/fat of right and left knee in 10/2017 with moderate improvements. He has a history of hypertension and hyperlipidemia. He also had bilateral total hip arthroplasty and trigger thumb surgery. RASHID Saleh - [place], [facility] 03/17/2019 12:10:20 12/08/2019 text/html Pain Score Pain scale from 0-10, 10 being the worst 2 Chief Complaint Pain scale from 0-10, 10 being the worst 2 Imported from [facility] on 12/08/2019 74-year-old male who comes in today for follow-up visit regarding his left knee he was treated with BMAC 10/2017, PRP 01/2018, and a series of prolotherapy 2017. He started having pain again after doing abduction exercises with a band around the ankle. GREGORY PADGETT [address], [place], [address], [facility] [employer] [facility], [facility] 12/08/2019 15:21:56 07/12/2024 text/html Here today for follow-up regarding his use of testosterone replacement therapy. He is doing well. No side effects. Bruno Bardales [address] [facility] [address], [place], [address], [facility] [employer], [facility] 07/12/2024 11:12:16
--- OUTSIDE RECORDS SUMMARY | 2025-04-29 12:58 | XMS_ITS | Encounter Summary ---
Author Organization [facility] Address 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
--- OUTSIDE RECORDS SUMMARY | 2025-04-29 12:58 | XMS_ITS | Encounter Summary ---
Author Organization [facility] Address 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
--- OUTSIDE RECORDS SUMMARY | 2025-04-29 12:58 | XMS_ITS | Encounter Summary ---
Author Organization [facility] Address 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
--- OUTSIDE RECORDS SUMMARY | 2025-04-29 12:58 | XMS_ITS | Encounter Summary ---
Author Organization [facility] Address [address] [place] [address] Care Team Providers Care Electronic Wirer Name Role Phone Bartolome Arriola MD Primary [...] AM CDT Legal Sex Male 4:17 AM COMPLIANCE MONITOR Gender Identity Male 06/26/2024 8:42 AM CDT [...] filedocumented in this encounter Care Teams Electronic Wirer Relationship Specialty Start Date End Date Bartolome Arriola MD PCP - General Internal Medicine 08/17/20 documented as of this encounter
--- OUTSIDE RECORDS SUMMARY | 2025-04-29 12:58 | XMS_ITS | Encounter Summary ---
Author Organization [facility] Address [address] [place] [address] Care Team Providers Care Can Filler Name Role Phone Bartolome Arriola MD Primary [...] AM CDT Legal Sex Male 4:17 AM LAWN MOWER MECHANIC Gender Identity Male 06/26/2024 8:42 AM CDT [...] on filedocumented in this encounter Care Teams Can Filler Relationship Specialty Start Date End Date Bartolome Arriola MD PCP - General Internal Medicine 08/17/20 documented as of this encounter
--- OUTSIDE RECORDS SUMMARY | 2025-04-29 12:58 | XMS_ITS | Encounter Summary ---
Author Organization [facility] Address [address] [place] [address] Care Team Providers Care Equities Analyst Name Role Phone Bartolome Arriola MD [...] AM CDT Legal Sex Male 4:17 AM CELL POURER Gender Identity Male 06/26/2024 8:42 AM CDT [...] on filedocumented in this encounter Care Teams Equities Analyst Relationship Specialty Start Date End Date Bartolome Arriola MD PCP - General Internal Medicine 08/17/20 documented as of this encounter
--- OUTSIDE RECORDS SUMMARY | 2025-04-29 12:58 | XMS_ITS | Encounter Summary ---
Author Organization [facility] Address [address] [place] [address] Care Team Providers Care Pearl Glue Drier Name Role Phone Bartolome Arriola MD Primary [...] AM CDT Legal Sex Male 4:17 AM WOOD BOATBUILDER APPRENTICE Gender Identity Male 06/26/2024 8:42 AM CDT [...] on filedocumented in this encounter Care Teams Pearl Glue Drier Relationship Specialty Start Date End Date aBrtolome Arriola MD PCP - General Internal Medicine 08/17/20 documented as of this encounter
--- OUTSIDE RECORDS SUMMARY | 2025-04-29 12:58 | XMS_ITS | Encounter Summary ---
Author Organization [facility] Address [address] [place] [address] Care Team Providers Care Founding Partner Name Role Phone Bartolome Arriola MD Primary [...] AM CDT Legal Sex Male 4:17 AM WARE CLEANER Gender Identity Male 06/26/2024 8:42 AM CDT [...] on filedocumented in this encounter Care Teams Founding Partner Relationship Specialty Start Date End Date Bartolome Arriola MD PCP - General Internal Medicine 08/17/20 documented as of this encounter
--- OUTSIDE RECORDS SUMMARY | 2025-04-29 12:58 | XMS_ITS | Encounter Summary ---
Author Organization [facility] Address [address] [place] [address] Care Team Providers Care Antique Collector Name Role Phone Bartolome Arriola MD Primary [...] AM CDT Legal Sex Male 4:17 AM SCOW DERRICK OPERATOR Gender Identity Male 06/26/2024 8:42 AM [...] on filedocumented in this encounter Care Teams Antique Collector Relationship Specialty Start Date End Date Bartolome Arriola MD PCP - General Internal Medicine 08/17/20 documented as of this encounter
--- OUTSIDE RECORDS SUMMARY | 2025-04-29 12:58 | XMS_ITS | Encounter Summary ---
Author Organization [facility] Address [address] [place] [address] Care Team Providers Care Mechanical Engineering Teacher Name Role Phone Bartolome Arriola MD Primary [...] AM CDT Legal Sex Male 4:17 AM RESIDENTIAL INSTALLER Gender Identity Male 06/26/2024 8:42 AM CDT [...] on filedocumented in this encounter Care Teams Mechanical Engineering Teacher Relationship Specialty Start Date End Date Bartolome Arriola MD PCP - General Internal Medicine 08/17/20 documented as of this encounter
--- OUTSIDE RECORDS SUMMARY | 2025-04-29 12:58 | XMS_ITS | Encounter Summary ---
Author Organization [facility] Address [address] [place] [address] Care Team Providers Care Resilient Tile Installer Name Role Phone Bartolome Arriola MD Primary [...] AM CDT Legal Sex Male 4:17 AM SILO WORKER Gender Identity Male 06/26/2024 8:42 AM [...] on filedocumented in this encounter Care Teams Resilient Tile Installer Relationship Specialty Start Date End Date Bartolome Arriola MD PCP - General Internal Medicine 08/17/20 documented as of this encounter
--- OUTSIDE RECORDS SUMMARY | 2025-04-29 12:58 | XMS_ITS | Encounter Summary ---
Author Organization [facility] Address [address] [place] [address] Care Team Providers Care Business Intelligence Analyst Name Role Phone Bartolome Arriola MD [...] AM CDT Legal Sex Male 4:17 AM POULTRY PINNER Gender Identity Male 06/26/2024 8:42 AM CDT [...] on filedocumented in this encounter Care Teams Business Intelligence Analyst Relationship Specialty Start Date End Date Bartolome Arriola MD PCP - General Internal Medicine 08/17/20 documented as of this encounter
--- OUTSIDE RECORDS SUMMARY | 2025-04-29 12:58 | XMS_ITS | Encounter Summary ---
Author Organization [facility] Address [address] [place] [address] Care Team Providers Care Field Sales Manager Name Role Phone Bartolome Arriola MD [...] AM CDT Legal Sex Male 4:17 AM SECURITY COORDINATOR Gender Identity Male 06/26/2024 8:42 AM [...] filedocumented in this encounter Care Teams Field Sales Manager Relationship Specialty Start Date End Date Bartolome Arriola MD PCP - General Internal Medicine 08/17/20 documented as of this encounter
--- OUTSIDE RECORDS SUMMARY | 2025-04-29 12:58 | XMS_ITS | Encounter Summary ---
Author Organization [facility] Address [address] [place] [address] Care Team Providers Care Manager Business Development Hospice Name Role Phone Bartolome Arriola MD Primary [...] AM CDT Legal Sex Male 4:17 AM SALON MANAGER Gender Identity Male 06/26/2024 8:42 AM [...] on filedocumented in this encounter Care Teams Manager Business Development Hospice Relationship Specialty Start Date End Date Bartolome Arriola MD PCP - General Internal Medicine 08/17/20 documented as of this encounter
--- OUTSIDE RECORDS SUMMARY | 2025-04-29 12:58 | XMS_ITS | Encounter Summary ---
Author Organization [facility] Address [address] [place] [address] Care Team Providers Care Needle Loom Tender Name Role Phone Bartolome Arriola MD Primary [...] AM CDT Legal Sex Male 4:17 AM HOUSEKEEPER AND LAUNDRY ASSISTANT Gender Identity Male 06/26/2024 8:42 AM CDT [...] on filedocumented in this encounter Care Teams Needle Loom Tender Relationship Specialty Start Date End Date Bartolome Arriola MD PCP - General Internal Medicine 08/17/20 documented as of this encounter
--- OUTSIDE RECORDS SUMMARY | 2025-04-29 12:58 | XMS_ITS | Encounter Summary ---
Author Organization [employer] Address [address] [place] [address] Care Team Providers Care Naphthalene Still Operator Name Role Phone Bartolome Arriola MD Primary Care Provider Unavailable Encounter Details Date Type Department Care Team (Late st Contact Info) Description 03/30/2004 Outpatient Historical [facility] ([facility]t Cardiology[facility]) [address] [place] [address] Emory Ellsworth MD NO ADDRESS ON FILE Social History Tobacco Use Types Packs/Day Years Used Date Smoking Tobacco: Never Assessed Sex and Gender Information Value Date Recorded Sex Assigned at Male 06/26/2024 8:42 AM CDT Legal Sex Male 4:17 AM MANAGER ANALYTICAL Gender Identity Male 06/26/2024 8:42 AM CDT Sexual Orientation Straight 06/26/2024 8: 42 AM CDT documented as of this encounter Plan of Treatment Not on file documented as of this encounter Visit Diagnoses Not on filedocumented in this encounter Care Teams Naphthalene Still Operator Relationship Specialty Start Date End Date Bartolome Arriola MD PCP - General Internal Medicine 08/17/20 documented as of this encounter
--- OUTSIDE RECORDS SUMMARY | 2025-04-29 12:58 | XMS_ITS | Encounter Summary ---
Author Organization [facility] Address [address] [place] [address] Care Team Providers Care Inventory Audit Clerk Name Role Phone Bartolome Arriola MD Primary [...] AM CDT Legal Sex Male 4:17 AM CENTRIFUGE OPERATOR Gender Identity Male 06/26/2024 8:42 AM [...] on filedocumented in this encounter Care Teams Inventory Audit Clerk Relationship Specialty Start Date End Date Bartolome Arriola MD PCP - General Internal Medicine 08/17/20 documented as of this encounter
--- OUTSIDE RECORDS SUMMARY | 2025-04-29 12:58 | XMS_ITS | Clinical Summary ---
Author Organization [facility] Address [address] [place] [address] Phone Care Team Providers Care Core Oven Tender Name Role Phone Bartolome Arriola MD [...] Containing Products Shortness of Breath/Wheezing High 01/19/2013 Spearman Pollen-Short Ragweed Unknown 03/20/1970 Medications polyethylene glycol [...] 2 Active fluticasone propionate (FLONASE) 50 mcg/spray [place], Suspension nasal inhaler Active CALCIUM CARBONATE-JUVENAL MIN D3 ORAL Take by mouth daily. Active [id number] [id number] ORAL Take by mouth daily. Active [...] Encounters Date Type Department Care Team Description 04/05/2025 External Device Data [facility] ABSTRACTION Provider, Abstract 03/15/2025 External Device Data [facility] ABSTRACTION Provider, Abstract 03/10/2025 External Device Data [facility] ABSTRACTION Provider, Abstract 03/09/2025 External Device Data [facility] ABSTRACTION Provider, Abstract 03/08/2025 External Device Data [facility] ABSTRACTION Provider, Abstract from Last 3 Months Immunizations Immunization Administration Dates Next Due (ADACEL/BOOSTRIX)(10 YR UP) TDAP VACCINE, 0.5ML, IM 07/15/2019,11/20/2008 (PFIZER)(12 YR UP) COVID-19 VACCINE - EMERGENCY USE AUTHORIZATION, MRNA, [id number](PF) 30 MCG/0.3 ML IM SUSP 12/22/2021,07/18/2021,12/22/2020,11/24 (PNEUMOVAX [...] Cancer; age 38 Cancer Sister 1 Maribell Giordano gynec ological Colon Cancer Neg Hx Relation Name Status Comments Brother Alive Father Herson Godoy Maternal Grandfather Maternal Grandmother Mother (Age 97) Paternal Grandfather Paternal Grandmother Sister 1 Maribell Giordano Sister 2 Alive Social History Tobacco Use [...] AM CDT Legal Sex Male 4:17 AM CORPORATE DEVELOPMENT OFFICER Gender Identity Male 06/26/2024 8:42 AM CDT Sexual Orientation Straight 06/26/2024 8: 42 AM CDT Last Filed Vital Signs Vital Sign Reading Time Taken Comments Blood Pressure 138/78 10/30/2023 7:19 AM CORPORATE DEVELOPMENT OFFICER Pulse 87 10/30/2023 7:19 AM CORPORATE DEVELOPMENT OFFICER Temperature 36.3 C (97.4 F) 10/30/2023 7:19 AM CORPORATE DEVELOPMENT OFFICER Respiratory Rate 17 10/06/2023 10:55 AM CORPORATE DEVELOPMENT OFFICER Oxygen Saturation 95% 10/30/2023 7:19 AM CORPORATE DEVELOPMENT OFFICER Inhaled Oxygen Concentration - - Weight 98 kg (216 lb) 10/30/2023 7:19 AM CORPORATE DEVELOPMENT OFFICER Height 185.4 cm (6' 1) 10/30/2023 7:19 AM CORPORATE DEVELOPMENT OFFICER Body Mass Index 28.5 10/30/2023 7:19 AM CORPORATE DEVELOPMENT OFFICER Plan of Treatment Health Maintenance Due Date Last Done Comments RSV VACCINE (60+ or ) (1 - 1-dose 75+ series) 2021 COVID-19 Vaccine (2023-2 5 season) 2024 06/28/2022, 12/22/2021, 07/18/2021, Additional history exists INFLUENZA VACCINE (#1) 2025 , 07/24/2022, 06/26/2021, Additional history exists COLORECTAL SCREENING 10/06/2028 10/06/2023, 10/06/2023, 07/19/2020, Additional history exists DTAP/TDAP/TD VACCINES (4 - T d or Tdap) 07/15/2029 07/15/2019, 07/15/2019, 11/20/2008, Additional history exists PNEUMOCOCCAL VACCINE 50+ YEARS Completed 1 10/24/2014, 06/12/2015, 04/04/2015, Additional history exists ZOSTER VACCINE Completed 04/30/2019, 04/0 04/2019, 04/04/2015, Additional history exists Medical Devices Implanted Type Area Subassembly Supervisor Device Identifier Shelf Expiration Date Model / Serial / Lot [employer] Dental Procedures Procedure Name Priority Date/Time Associated Diagnosis Comments COLONOSCOPY REPORT 10/06/2023 10 :42 AM CORPORATE DEVELOPMENT OFFICER from Last 3 Months or Most Recently Relevant to Health Maintenance Results * COLONOSCOPY REPORT (10/06/2023 10:42 AM CORPORATE DEVELOPMENT OFFICER) Narrative Procedure Note Cordell Gonzalez MD - 10/06/2023 10:42 AM CST [facility] Endoscopy Patient Name: Herson Godoy Procedure Date: 10/06/2023 Date of : [...] signed electronically. Number of Addenda: [address]; [place] [address] Cordell Gonzalez MD GI PROCEDURE ORDERABLES Final Re sult from Last 3 Months or Most Recently Relevant to Health Maintenance Insurance MEDICARE PART A AND B AETNA MEDICARE SUPP [employer] [place] Medicare Part D Advance Directives For more information, please contact: [phone] * Full Code (Latest Code Status on [...] 6:58 AM 09/22/2017 8:03 AM Care Teams Core Oven Tender Relationship Specialty Start Date End Date Bartolome Arriola MD PCP - General Internal Medicine 08/17/20
--- OUTSIDE RECORDS SUMMARY | 2025-04-29 12:59 | XMS_ITS | Encounter Summary ---
Author Organization [facility] Address [address] [place] [address] Care Team Providers Care Gate Tender Name Role Phone Bartolome Arriola MD Primary Care Provider Unavailable Encounter Details Date Type Department Care Team (Latest Contact Info) Description 05/01/2000 Outpatient Historical [facility] CARBURETOR SPECIALIST Moises Sears MD NO ADDRESS ON FILE Pure hypercholesterolemia (Primary Dx) Social History Tobacco Use Types Packs/Day Years Used Date Smoking Tobacco: Never Assessed Sex and Gender Information Value Date Recorded Sex Assigned at Male 06/26/2024 8:42 AM CDT Legal Sex Male 4:17 AM SENIOR CONSULTANT Gender Identity Male 06/26/2024 8:42 AM CDT Sexual Orientation Straight 06/26/2024 8: 42 AM CDT documented as of this encounter Plan of Treatment Not on file documented as of this encounter Visit Diagnoses Diagnosis Pure hypercholesterolemia- Primary documented in this encounter Care Teams Gate Tender Relationship Specialty Start Date End Date Bartolome Arriola MD PCP - General Internal Medicine 08/17/20 documented as of this encounter
--- OUTSIDE RECORDS SUMMARY | 2025-04-29 12:59 | XMS_ITS | Clinical Summary ---
Author Organization [facility] Address [address] [address] Care Team Providers Care Retail Sales Associate Bilingual Name Role Phone Lenny Wise MD Primary [...] artificial joint 03/06/2017 Osteoarthritis of hip 07/03/2016 Medical History Medical History Date Comments Hypertension [...] on file 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:53 PM PRODUCTION SUPERINTENDENT Gender Identity Male 08/29/2021 9:39 AM PRODUCTION SUPERINTENDENT Sexual Orientation Straight 08/29/2021 9: 39 AM PRODUCTION SUPERINTENDENT Obstetrics History Last Filed Vital Signs Vital Sign Reading Time Taken Comments Blood Pressure 126/70 12/21/2024 11:05 AM PRODUCTION SUPERINTENDENT Pulse 62 12/21/2024 11:05 AM PRODUCTION SUPERINTENDENT Temperature 36.5 C (97.7 F) 09/19/2021 4:46 PM PRODUCTION SUPERINTENDENT Respiratory Rate 18 12/21/2024 11:05 AM PRODUCTION SUPERINTENDENT Oxygen Saturation 95% 12/21/2024 11:05 AM PRODUCTION SUPERINTENDENT Inhaled Oxygen Concentration - - Weight 96 kg (211 lb 9.6 oz) 12/21/2024 11:05 AM PRODUCTION SUPERINTENDENT Height 185.4 cm (6' 1) 12/21/2024 11:05 AM PRODUCTION SUPERINTENDENT Body Mass Index 27.92 12/21/2024 11:05 AM PRODUCTION SUPERINTENDENT Plan of Treatment Health Maintenance Due Date Last Done Comments Depression Screening 1946 Fall Risk Assessment 1945 Hepatitis C Screening 1945 Hepatitis B Screening 1964 Well Visit 65+ 2011 Influenza Vaccine (#1) 2025 3, 07/24/2022, 06/26/2021, Additional history exists DTaP/Tdap/Td Vaccine (4 - Td or Tdap) 07/15/2029 07/15/2019, 07/15/2019, 11/20/2008, Additional history exists Pneumococcal vaccine 65+ Completed 015, 06/12/2015, 04/04/2015, Additional history exists Zoster Vaccine Completed 04/30/2019, 0405/2019, 04/04/2015, Additional history exists Insurance MEDICARE AET [facility] MEDICARE BLUE CROSS MEDICARE SUPPLEMENT MEDICARE AETNA SENIOR SUPPLEMENT Care Teams Retail Sales Associate Bilingual Relationship Specialty Start Date End Date Lenny Wise MD [address] [place] [address] PCP - General Family Practice 12/21/24
--- OUTSIDE RECORDS SUMMARY | 2025-04-29 12:59 | XMS_ITS | Encounter Summary ---
Author Organization [employer] Address [address] [place] [address] Care Team Providers Care Morning News Producer Name Role Phone Bartolome Arriola MD Primary Care Provider Unavailable Encounter Details Date Type Department Care Team (Late st Contact Info) Description 05/07/2000 Outpatient Historical [facility] Ar Zhang MD [address] [place] [address] Observation and evaluation for other specified suspected conditions (Primary Dx) Social History Tobacco Use Types Packs/Day Years Used Date Smoking Tobacco: Never Assessed Sex and Gender Information Value Date Recorded Sex Assigned at Male 06/26/2024 8:42 AM CDT Legal Sex Male 4:17 AM PASSENGER RATE CLERK Gender Identity Male 06/26/2024 8:42 AM CDT Sexual Orientation Straight 06/26/2024 8: 42 AM CDT documented as of this encounter Plan of Treatment Not on file documented as of this encounter Visit Diagnoses Diagnosis Observation and evaluation for other specified suspected conditions- Primary documented in this encounter Care Teams Morning News Producer Relationship Specialty Start Date End Date Bartolome Arriola MD PCP - General Internal Medicine 08/17/20 documented as of this encounter
--- OUTSIDE RECORDS SUMMARY | 2025-04-29 12:59 | XMS_ITS | Referral Summary ---
Author Organization [facility] Address [address] [address] Care Team Providers Care Health And Safety Specialist Name Role Phone Lenny Wise MD Primary [...] on file 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:53 PM FRONT DESK AUXILIARY Gender Identity Male 08/29/2021 9:39 AM FRONT DESK AUXILIARY Sexual Orientation Straight 08/29/2021 9: 39 AM FRONT DESK AUXILIARY Last Filed Vital Signs Vital Sign Reading Time Taken Comments Blood Pressure 126/70 12/21/2024 11:05 AM FRONT DESK AUXILIARY Pulse 62 12/21/2024 11:05 AM FRONT DESK AUXILIARY Temperature 36.5 C (97.7 F) 09/19/2021 4:46 PM FRONT DESK AUXILIARY Respiratory Rate 18 12/21/2024 11:05 AM FRONT DESK AUXILIARY Oxygen Saturation 95% 12/21/2024 11:05 AM FRONT DESK AUXILIARY Inhaled Oxygen Concentration - - Weight 96 kg (211 lb 9.6 oz) 12/21/2024 11:05 AM FRONT DESK AUXILIARY Height 185.4 cm (6' 1) 12/21/2024 11:05 AM FRONT DESK AUXILIARY Body Mass Index 27.92 12/21/2024 11:05 AM FRONT DESK AUXILIARY Plan of Treatment Not on file Insurance MEDICARE AETNA [facility] SUPPLEMENT MEDICARE BLUE CROSS MEDICARE SUPPLEMENT MEDICARE AETNA SENIOR SUPPLEMENT Care Teams Health And Safety Specialist Relationship Specialty Start Date End Date Lenny Wise MD [address] [facility] [address] [address] PCP - General Family Practice 12/21/24
--- OUTSIDE RECORDS SUMMARY | 2025-04-29 12:59 | XMS_ITS | Encounter Summary ---
Author Organization [facility] Address [address] [place] [address] Care Team Providers Care Chemical Mixer Name Role Phone Bartolome Arriola MD Primary [...] AM CDT Legal Sex Male 4:17 AM MUD ANALYSIS OPERATOR Gender Identity Male 06/26/2024 8:42 AM CDT Sexual Orientation Straight 06/26/2024 8: 42 AM CDT documented as of this encounter Plan of Treatment Not on file documented as of this encounter Visit Diagnoses Diagnosis Hemorrhage of rectum and anus- Primary documented in this encounter Care Teams Chemical Mixer Relationship Specialty Start Date End Date Bartolome Arriola MD PCP - General Internal Medicine 08/17/20 documented as of this encounter
--- OUTSIDE RECORDS SUMMARY | 2025-04-29 12:59 | XMS_ITS | Encounter Summary ---
Author Organization [facility] Address [address] [place] [address] Care Team Providers Care Lining Feller Name Role Phone Bartolome Arriola MD Primary [...] AM CDT Legal Sex Male 4:17 AM PARKING ENFORCEMENT OFFICER Gender Identity Male 06/26/2024 8:42 AM CDT Sexual Orientation Straight 06/26/2024 8: 42 AM CDT documented as of this encounter Plan of Treatment Not on file documented as of this encounter Visit Diagnoses Diagnosis Undiagnosed cardiac murmurs- Primary documented in this encounter Care Teams Lining Feller Relationship Specialty Start Date End Date Bartoolme Arriola MD PCP - General Internal Medicine 08/17/20 documented as of this encounter
--- OUTSIDE RECORDS SUMMARY | 2025-04-29 12:59 | XMS_ITS | Encounter Summary ---
Author Organization [facility] Address [address] [place] [address] Care Team Providers Care Dairy Feed Worker Name Role Phone Bartolome Arriola MD Primary Care Provider Unavailable Encounter Details Date Type Department Care Team (Latest Contact Info) Description 02/12/1999 Outpatient Historical HIS [facility] JANNETTE Sears, Moises Ryan MD NO ADDRESS ON FILE Injury, other and unspecified, finger (Primary Dx) Social History Tobacco Use Types Packs/Day Years Used Date Smoking Tobacco: Never Assessed Sex and Gender Information Value Date Recorded Sex Assigned at Male 06/26/2024 8:42 AM CDT Legal Sex Male 4:17 AM GAS APPLIANCE SERVICER Gender Identity Male 06/26/2024 8:42 AM CDT Sexual Orientation Straight 06/26/2024 8: 42 AM CDT documented as of this encounter Plan of Treatment Not on file documented as of this encounter Visit Diagnoses Diagnosis Injury, other and unspecified, finger- Primary documented in this encounter Care Teams Dairy Feed Worker Relationship Specialty Start Date End Date Bartolome Arriola MD PCP - General Internal Medicine 08/17/20 documented as of this encounter
--- NOTE | 2025-04-29 13:51 | ECG_ITS ---
Test Date: 2025-04-29 14:03:26 Measurements Intervals [place] Rate: 58 P: 34 SC: 204 QRS: -10 QRSD: 92 T: 22 QT: 383 QTc: 378 Interpretive Statements SINUS BRADYCARDIA WITH OCCASIONAL VENTRICULAR PREMATURE COMPLEXES INFERIOR MYOCARDIAL INFARCTION [40+ ms Q WAVE AND/OR ST/T ABNORMALITY IN II/aVF], PROBABLY OLD No previous ECG available for comparison Electronically Signed On 04-29-2025 22:33:52 CDT by Melvina Dorado M.D.
[2025-04-29 14:16] LABS: Hematocrit 44.4 % (42.0-52.0); Hemoglobin 14.4 g/dL (14.0-18.0); Immature Granulocyte Percent A 0.1 % (0-0.5); Lymphocytes Absolute Auto 1.77 K/mm3 (0.9-3.2); Mean Corpuscular HGB Conc 32.4 g/dl (32-36); Mean Corpuscular Hemoglobin 30.4 pg (26-34); Mean Corpuscular Volume 93.9 fl (80-100); Nucleated Red Blood Cells Absolute Auto 0.000 K/mm3 (0.0-0.012); Nucleated Red Blood Cells Perc 0.0 % (0.0-0.2); Platelet Count Result 205 k/mm3 (150-375); Red Blood Count 4.73 M/mm3 (4.6-6.20); White Blood Count 8.1 K/mm3 (4.5-10.0)
[2025-04-29 14:26] LABS: Hemoglobin A1C 5.9 % (<5.7)
[2025-04-29 14:38] LABS: Albumin Level 3.9 g/dL (3.5-5.1); Estimated Glomerular Filt Rate > 60; Glucose 98 mg/dL (65-110)
[2025-04-29 15:31] LABS: MRSA (PCR) NOT DETECTED (NOT DETECTE)
== END 2025-04-29 12:52 | disposition home or self-care (01) ==
LOC: ANHSURGERY 12:55
PROVIDERS: PCP Family Medicine; Visit Provider Orthopaedic Surgery
DX: M17.11 Unilateral primary osteoarthritis, right knee (principal); I10 Essential (primary) hypertension; Z01.818 Encounter for other preprocedural examination
CPT/HCPCS: 80307; 82040; 82565; 82947; 83036; 85025; 87641; 93005

== ENCOUNTER 2025-05-16 01:07 | Day surgery (SDC) | payer MEDICARE, SELFPAY ==
--- NOTE | 2025-04-29 12:55 | PC.NURSE ---
Report to the Outpatient Waiting Room, entrance under the green pavilion located off [facility], at time _10 AM on date __05/16/25 . Planned Procedure Time: __1200 NOON .? Time changes happen often and if your time is changed the preop area will call you the afternoon before. - You and your visitor will be asked to self-screen and do not enter if you have any COVID symptoms. Please call surgeon if you need to reschedule. - A mask is optional within the hospital at this time. Patients may have clear liquids (water, carbonated beverages, clear teas, apple juice) until 3 hours prior to surgery ( 9AM) with a maximum of 20 ounces. - No food from midnight until time of surgery and no smoking, or chewing tobacco (or any form of nicotine). No chewing gum, candy or mints. - Take only the following medications with a SIP of water on the morning of surgery: _,METOPROLOL DO NOT STOP ANY OF YOUR OTHER PRESCRIPTION MEDICATIONS PRIOR TO SURGERY EXCEPT THE FOLLOWING Hold all vitamins and supplements for 3 days per anesthesiologist.LAST DOSE 05/12/25 Medications to discontinue per physician NONE MAY CONTINUE CELECOXIB PER DR BAXTER Please no make-up, nail urdu, hairspray, perfume, deodorant, or body powder the day of surgery.? No jewelry (including any body piercings) or valuables the day of surgery, leave them at home.? Please take a shower or bath the night before, or the morning of, surgery with an antibacterial soap.? Wear comfortable, loose fitting clothing.? Children are encouraged to wear pajamas. - Jewelry must be removed prior to entering the operating room.? Rings and piercings that are not removed may be cut off. - The hospital will not accept responsibility for valuables.? - Please leave all valuables, including medications, at home the day of surgery. If you are going home after surgery, a licensed ross carrier driver must drive you home.? - NO public transportation without another adult if you receive anesthesia. - We recommend that an adult stay with you for 24 hours following discharge. - We also recommend that you do not drive, make important decision, drink alcoholic beverages, or take any drugs that were not prescribed by your health care provider for at least 24 hours after your discharge time. For Pediatric surgeries, we recommend two adults accompany the child home. Follow any additional instructions given to you from your surgeon. VERBAL AND WRITTEN instructions given to _PATIENT AND WIFE and asked if any additional questions and then verbalized understanding. Patient advised to call surgeon office or pre surgery nurse liaison [phone] if any additional questions.
[2025-04-29 12:59] VITALS: BMI 29.7
[2025-04-29 13:46] VITALS: BP 124/64; PULSE 59; RESP 18; TEMP 36.7; O2SAT 97
[2025-05-16] VITALS (15 sets, daily range): BP systolic 132–166; BP diastolic 62–76; PULSE 68–84; RESP 12–20; TEMP 36.3–37.5; O2SAT 92–100; BMI 28.9; BMI 29.3
--- NOTE | ~2025-05-16 | XR_ITS ---
EXAMINATION: [id number] DATE: 05/16/2025 15:11 INDICATION: Postoperative evaluation following right total knee arthroplasty. TECHNIQUE: Anteroposterior and lateral views of the right knee were obtained. COMPARISON: 02/02/2025 FINDINGS: Right total knee arthroplasty without patellar resurfacing appears well seated and in near anatomic a lignment. No fractures identified. Expected postoperative subcutaneous and intra-articular gas. IMPRESSION: 1. Right total knee arthroplasty, negative for postoperative purposes. Reviewed, dictated and finalized at location A.
--- OUTSIDE RECORDS SUMMARY | 2025-05-16 01:12 | XMS_ITS | Encounter Summary ---
Author Organization [facility] Address [address] [place] [address] Care Team Providers Care Brick Paving Checker Name Role Phone Bartolome Arriola MD Primary [...] 0.6 oz pur e alcohol) Very occasional Sex and Gender Information Value Date Recorded Sex Assigned at Male 06/26/2024 8:42 AM CDT Legal Sex Male 4:17 AM CASE PACKER Gender Identity Male 06/26/2024 8:42 AM CDT [...] on filedocumented in this encounter Care Teams Brick Paving Checker Relationship Specialty Start Date End Date Bartolome Arriola MD PCP - General Internal Medicine 08/17/20 documented as of this encounter
--- OUTSIDE RECORDS SUMMARY | 2025-05-16 01:12 | XMS_ITS | Encounter Summary ---
Author Organization [facility] Address [address] [place] [address] Care Team Providers Care Junior Art Director Name Role Phone Bartolome Arriola MD Primary [...] AM CDT Legal Sex Male 4:17 AM SAFETY AND HEALTH MANAGER Gender Identity Male 06/26/2024 8:42 AM [...] on filedocumented in this encounter Care Teams Junior Art Director Relationship Specialty Start Date End Date Bartolome Arriola MD PCP - General Internal Medicine 08/17/20 documented as of this encounter
--- OUTSIDE RECORDS SUMMARY | 2025-05-16 01:12 | XMS_ITS | Encounter Summary ---
Author Organization [facility] Address [address] [place] [address] Care Team Providers Care Bottle Hop Name Role Phone Bartolome Arriola MD Primary [...] AM CDT Legal Sex Male 4:17 AM EMAIL MARKETING PROCESSOR Gender Identity Male 06/26/2024 8:42 AM CDT [...] on filedocumented in this encounter Care Teams Bottle Hop Relationship Specialty Start Date End Date Bartolome Arriola MD PCP - General Internal Medicine 08/17/20 documented as of this encounter
--- OUTSIDE RECORDS SUMMARY | 2025-05-16 01:12 | XMS_ITS | Encounter Summary ---
Author Organization [facility] Address [address] [place] [address] Care Team Providers Care Automobile Repossessor Name Role Phone Bartolome Arriola MD Primary [...] CDT Legal Sex Male 4:17 AM MANAGER STRATEGY Gender Identity Male 06/26/2024 8:42 AM CDT [...] on filedocumented in this encounter Care Teams Automobile Repossessor Relationship Specialty Start Date End Date Bartolome Arriola MD PCP - General Internal Medicine 08/17/20 documented as of this encounter
--- OUTSIDE RECORDS SUMMARY | 2025-05-16 01:12 | XMS_ITS | Encounter Summary ---
Author Organization [facility] Address 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
--- OUTSIDE RECORDS SUMMARY | 2025-05-16 01:12 | XMS_ITS | Encounter Summary ---
Author Organization [facility] Address 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
--- OUTSIDE RECORDS SUMMARY | 2025-05-16 01:12 | XMS_ITS | Encounter Summary ---
Author Organization [facility] Address 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
--- OUTSIDE RECORDS SUMMARY | 2025-05-16 01:12 | XMS_ITS | Encounter Summary ---
Author Organization [facility] Address 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
--- OUTSIDE RECORDS SUMMARY | 2025-05-16 01:12 | XMS_ITS | Clinical Summary ---
Author Organization [facility] Address [address] [place] [address] Phone Care Team Providers Care Technical Support Representative Name Role Phone Bartolome Arriola MD [...] Containing Products Shortness of Breath/Wheezing High 01/19/2013 [place] Pollen-Short Ragweed Unknown 03/20/1970 Medications polyethylene glycol [...] 2 Active fluticasone propionate (FLONASE) 50 mcg/spray [place], Suspension nasal inhaler Active CALCIUM CARBONATE-JUVENAL MIN D3 ORAL Take by mouth daily. Active [id number] YL ORAL Take by mouth daily. Active [...] Dr Arechiga ; Ortho - Dr Tyler Yugn. Problem Noted Date Diagnosed Date Hx of [...] Encounters Date Type Department Care Team Description 05/04/2025 External Device Data ST[facility] ABSTRACTION Provider, Abstract 05/04/2025 External Device Data ST[facility] ABSTRACTION Provider, Abstract 05/04/2025 External Device Data ST[facility] ABSTRACTION Provider, Abstract 05/03/2025 External Device Data ST[facility] ABSTRACTION Provider, Abstract 04/05/2025 External Device Data ST[facility] ABSTRACTION Provider, [...] COVID-19 VACCINE - EMERGENCY USE AUTHORIZATION, MRNA, [id number](PF) 30 MCG/0.3 ML IM SUSP 12/22/2021,07/18/2021,12/22/2020,11/24 (PNEUMOVAX [...] Cancer; age 38 Cancer Sister 1 Maribell Giordnao gynec ological Colon Cancer Neg Hx Relation [...] AM CDT 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 Gender Identity Male 06/26/2024 8:42 AM CDT Sexual Orientation Straight 06/26/2024 8: 42 AM CDT Last Filed Vital Signs Vital Sign Reading Time Taken Comments Blood Pressure 138/78 10/30/2023 7:19 AM WRECKER DRIVER Pulse 87 10/30/2023 7:19 AM WRECKER DRIVER Temperature 36.3 C (97.4 F) 10/30/2023 7:19 AM WRECKER DRIVER Respiratory Rate 17 10/06/2023 10:55 AM WRECKER DRIVER Oxygen Saturation 95% 10/30/2023 7:19 AM WRECKER DRIVER Inhaled Oxygen Concentration - - Weight 98 kg (216 lb) 10/30/2023 7:19 AM WRECKER DRIVER Height 185.4 cm (6' 1) 10/30/2023 7:19 AM WRECKER DRIVER Body Mass Index 28.5 10/30/2023 7:19 AM WRECKER DRIVER Plan of Treatment Health Maintenance Due Date [...] Additional history exists ZOSTER VACCINE Completed 04/30/2019, 04/2019, 04/04/2015, Additional history exists Medical Devices Implanted Type Area Physicist Acoustics Device Identifier Shelf Expiration Date Model / Serial / Lot [employer] Dental Procedures Procedure Name Priority Date/Time Associated Diagnosis Comments COLONOSCOPY REPORT 10/06/2023 10 :42 AM WRECKER DRIVER from Last 3 Months or Most Recently Relevant to Health Maintenance Results * COLONOSCOPY REPORT (10/06/2023 10:42 AM WRECKER DRIVER) Narrative Procedure Note Cordell Gonzalez MD - 10/06/2023 10:42 AM CST [facility] Endoscopy Patient Name: Herson Godoy Procedure [...] signed electronically. Number of Addenda: [phone]; [place] [address] Cordell Gonzalez MD GI PROCEDURE ORDERABLES Final Re sult from Last 3 Months or Most Recently Relevant to Health Maintenance Insurance MEDICARE PART A AND B [employer] MEDICARE SUPP [facility] [employer] Medicare Part D Advance Directives For more information, please contact: [phone] * Full Code (Latest Code Status on [...] 6:58 AM 09/22/2017 8:03 AM Care Teams Technical Support Representative Relationship Specialty Start Date End Date Bartolome Arriola MD PCP - General Internal Medicine 08/17/20
--- OUTSIDE RECORDS SUMMARY | 2025-05-16 01:12 | XMS_ITS | Encounter Summary ---
Author Organization [facility] Address 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
--- OUTSIDE RECORDS SUMMARY | 2025-05-16 01:12 | XMS_ITS | Encounter Summary ---
Author Organization [facility] Address [address] [place] [address] Care Team Providers Care Optician Name Role Phone Bartolome Arriola MD Primary [...] AM CDT Legal Sex Male 4:17 AM OVERLOCK ELASTIC ATTACHER Gender Identity Male 06/26/2024 8:42 AM CDT [...] on filedocumented in this encounter Care Teams Optician Relationship Specialty Start Date End Date Bartolome Arriola MD PCP - General Internal Medicine 08/17/20 documented as of this encounter
--- OUTSIDE RECORDS SUMMARY | 2025-05-16 01:12 | XMS_ITS | Continuity of Care Document ---
Author Organization [facility] Address [address] [place] [address] Phone Care Team Providers Care Laundry Tech Name Role Phone Kings Lock MD Unavailable Unavailable Allergies, Adverse Reactions, Alerts Substance Reaction Status Criticality shellfish derived Active No Informa tion Penicillins Active No Information POTASSIUM CLAVULANATE Active No Inf ormation AMOXICILLIN TRIHYDRATE Active No In formation POTASSIUM CLAVULANATE Active No Inf ormation AMOXICILLIN TRIHYDRATE Active No In formation Medications Medication Instructions Dosage Effective Dates (start - stop) Status Comments tizanidine 4 mg tablet TAKE 1 TABLET BY ORAL ROUTE EVERY NIGHT AT BEDTIME - Active 3 MOS SUPPLY Valium 10 mg tablet take 1-2 tablet by oral route 1 to 2 hours prior to procedure. Then may take 1-2 tablets every 6 hours PRN - Active aspirin 81 mg chewable tablet chew 1 tablet by oral route every day 81 MG - Active MIRALAX (unknown strength) take 1 packet by oral route every day mixed with 8 oz. water, juice, soda, coffee or tea Not Available - Active TYLENOL (unknown strength) take 1 tablet by oral route every 4 hours as needed Not Available - Active fluticasone 50 mcg/actuation nasal spray,suspension spray 2 by intranasal route every day in each nostril 2 - Active ATORVASTATIN CALCIUM (unknown strength) take 1 tablet by oral route every day Not Available - Active AMLODIPINE BESYLATE (unknown strength) take 1 tablet by oral route every day Not Available - Active FLONASE (unknown strength) Not Available - Active AMLODIPINE BESYLATE (unknown strength) Not Available - Active ZOCOR (unknown strength) Not Available - Active Procedures Procedure Date OFFICE/OUTPATIENT VISIT EST OFFICE/OUTPATIENT VISIT EST OFFICE/OUTPATIENT VISIT EST OFFICE/OUTPATIENT VISIT EST OFFICE/OUTPATIENT VISIT EST OFFICE/OUTPATIENT VISIT EST OFFICE/OUTPATIENT VISIT EST PERCUT ALLERGY SKIN TESTS PERCUT ALLERGY SKIN TESTS OFFICE/OUTPATIENT VISIT NEW POSTOP FOLLOW-UP VISIT OFFICE/OUTPATIENT VISIT EST OFFICE/OUTPATIENT VISIT EST OFFICE/OUTPATIENT VISIT EST OFFICE/OUTPATIENT VISIT EST OFFICE/OUTPATIENT VISIT EST OFFICE/OUTPATIENT VISIT NEW OFFICE/OUTPATIENT VISIT EST OFFICE/OUTPATIENT VISIT EST OFFICE/OUTPATIENT VISIT EST OFFICE/OUTPATIENT VISIT EST OFFICE/OUTPATIENT VISIT EST OFFICE/OUTPATIENT VISIT EST OFFICE/OUTPATIENT VISIT EST OFFICE/OUTPATIENT VISIT EST OFFICE/OUTPATIENT VISIT EST OFFICE/OUTPATIENT VISIT EST OFFICE/OUTPATIENT VISIT EST OFFICE/OUTPATIENT VISIT EST OFFICE/OUTPATIENT VISIT EST OFFICE/OUTPATIENT VISIT NEW Advance Directives Directive Yes / No Effective Date File Name No Information Encounters Encounter Description Practice Location Reason(s) For Visit Diagnoses Date Provider Providers Copied on Encounter [facility], [address] [place] [address], [facility], tel:[phone] [facility] [address] Lateral epicondyliti s of left elbowEncount er for preprocedura l cardiovascul ar examination [address] [place], [place], [address]. tel:[phone] OFFICE/OUTPA TIENT VISIT EST [facility], [address] [place] [address], [address], tel:[phone] [facility] Lateral epicondyliti s of left elbow 9 Ashvin Ku[address] [place], [place], [address]. tel:[phone] [facility], [address], [address], [place] tel:[phone] [facility] No Information 9 Mausolange Van. [address] [place], [place], [address]. tel:[phone] OFFICE/OUTPA TIENT VISIT [facility], [address] [place] [address], [address], [place] tel:[phone] [facility] Spinal stenosis of lumbar region with neurogenic claudication Lumbago with sciatica, right side 9 Maus[address] [place], [place], [address]. tel:[phone] OFFICE/OUTPA TIENT VISIT EST [facility], [address], [address], [place] tel:[phone] [facility] Lateral epicondyliti s of left elbow 9 Ashvin Ku[address] [place], [place], [address]. tel:[phone] Referring Provider: David Daly D, [address], [place], [address]. tel:[phone] OFFICE/OUTPA TIENT VISIT [facility], [address] [place] [address], [address], [place] tel:[phone] [facility] Spinal stenosis of lumbar region with neurogenic claudication Lumbosacral radiculopath y at F9Suuiy intervertebr al disc displacement , lumbar region 9 Mau Rehan. [address] [place], [place], [address]. tel:[phone] OFFICE/OUTPA TIENT VISIT EST [facility], [address], [address], [place] tel:[phone] [facility] Spinal stenosis of lumbar region with neurogenic claudication Lumbago with sciatica, right side 8 Mau Van. [address] [place], [place], [address]. tel:[phone] [facility], [address] [place] [address], [address], [place] tel:[phone] [facility] [address] No Information 8 Mau [address] [place], [place], [address]. tel:[phone] [facility], [address] [place] [address], [address], [place] tel:[phone] [facility] [address] Lumbosacral radiculopath y at L3 8 Maus[address]ange Van[address] [place], [place], [address]. tel:[phone] OFFICE/OUTPA TIENT VISIT [facility], [address] [place] [address], [address], [place] tel:[phone] [facility] Spinal stenosis of lumbar region with neurogenic claudication Lumbosacral radiculopath y at L3 8 Mau Van[address] [place], [place], [address]. tel:[phone] OFFICE/OUTPA TIENT VISIT [facility], [address] [place] [address], [address], [place] tel:[phone] [facility] Body mass index (BMI) 28.0-28.9, adultLateral epicondyliti s of left elbow [address], [place], [place], [address], [place]. tel:[phone] OFFICE/OUTPA TIENT VISIT [facility], [address], [place], [address], [place] tel:[phone] [facility] Allergy Immunology allergy evaluation (chief complaint) Rash and other nonspecific skin eruptionFood allergyOther allergic rhinitisEcze ma, unspecified type 7 Fan Hamsa. [address], [place], [place], [address]. tel:[phone] [facility], [address], [place], [address], [place] tel:[phone] [facility] Status post trigger finger release 7 Scooter Mckeon. [address], [place], [place], [address], [place]. tel:[phone] [facility], [address] [place] [address] [address], [place], [address], [place] tel:[phone] [facility] Trigger finger of right thumb Jun- 7 Ashvin Ku. [address] [facility], [place], [place], [address]. tel:[phone] OFFICE/OUTPA TIENT VISIT [facility], [address], [place], [address], [place] tel:[phone] [facility] Trigger finger of right thumb Mar- 7 Ashvin Ku. [address] [facility] [facility], [place], [place], [address]. tel:[phone] OFFICE/OUTPA TIENT VISIT [facility], [address], [place], [address], [place] tel:[phone] [facility] Primary osteoarthrit is of right knee Mar- 7 Dilshad Scott. [address], [place], [place], [address]. tel:[phone] OFFICE/OUTPA TIENT VISIT [facility], [address], [place], [address], [place] tel:[phone] [facility] Body mass index (BMI) 28.0-28.9, adultPrimary osteoarthrit is of right knee Mar-0 3-201 7 Arceliader Tyler. [address], [place], [place], [address]. tel:[phone] OFFICE/OUTPA TIENT VISIT [facility], [address] [address], [place], [address], [place] tel:[phone] [facility] Trigger finger of right thumb Feb-0 3-201 7 Ashvin Ku. [address] [facility], [place], [place], [address]. tel:[phone] OFFICE/OUTPA TIENT VISIT [facility], [address] [address], [place], [address], [place] tel:[phone] [facility] Trigger little finger of left handTrigger finger of right thumb Ivan-0 9-201 7 Helms Mike. [address], [place], [place], [address], [place]. tel:[phone] OFFICE/OUTPA TIENT VISIT [facility], [address] [address], [place], [address], [place] tel:[phone] [facility] Trigger little finger of left hand Sep-2 6-201 6 Ashvin Ku. [address] [facility], [place], [place], [address]. tel:[phone] OFFICE/OUTPA TIENT VISIT [facility], [address] [address], [place], [address], [place] tel:[phone] [facility] Primary osteoarthrit is of right knee Mar-0 2-201 6 Arceliader Tyler. [address], [place], [place], [address]. tel:[phone] OFFICE/OUTPA TIENT VISIT [facility], [address] [place] [address], [address], [place] tel:[phone] [facility] Primary localized osteoarthrit is of right hip Dec-0 5 Mau Van. [address] [place], [place], [address]. tel:[phone] OFFICE/OUTPA TIENT VISIT [facility], [address], [address], [place] tel:[phone] [facility] Spinal stenosis of lumbar regionLumbag o with sciatica, right sideLumbago with sciatica, left sidePrimary localized osteoarthrit is of right hip Jun- 5 Mau Van. [address] [place], [place], [address]. tel:[phone] [facility], [address], [address], [place] tel:[phone] [facility] Pain in limbSwelling of both lower extremitiesP rimary localized osteoarthros is, pelvic region and thighLow back pain 5 Mau Van. [address] [place], [place], [address]. tel:[phone] OFFICE/OUTPA TIENT VISIT [facility], [address] [place] [address], [address], [place] tel:[phone] [facility] Pain in limb 5 Mau Van. [address] [place], [place], [address]. tel:[phone] OFFICE/OUTPA TIENT VISIT [facility], [address] [place] [address], [address], [place] tel:[phone] [facility] BILAT KNEE PAIN (chief complaint) Primary localized osteoarthros is, pelvic region and thigh Feb- 5 Dilshad Scott. [address], [place], [place], [address]. tel:[phone] OFFICE/OUTPA TIENT VISIT [facility], [address], [place], [address], [place] [phone] [facility] BACK PAIN (chief complaint)PE R SZ - WANTING TO TRY L HIP INJECTION (chief complaint) Primary localized osteoarthros is, pelvic region and thigh 5 Mau Van. [address] [facility], [place], [place], [address]. tel:[phone] OFFICE/OUTPA TIENT VISIT [facility], [address], [place], [address], [place] tel:[phone] [facility] Primary localized osteoarthros is, pelvic region and thigh 5 Dilshad Scott. [address], [place], [place], [address]. tel:[phone] [facility], [address] [address], [place], [address], [place] tel:[phone] [facility] Primary localized osteoarthros is, pelvic region and thigh 4 Dilshad Scott. [address], [place], [place], [address]. tel:[phone] OFFICE/OUTPA TIENT VISIT [facility], [address] [address], [place], [address], [place] tel:[phone] [facility] SciaticaLow back painSpinal stenosis of lumbar region 4 Mau Van. [address] [facility], [place], [place], [address]. [phone] OFFICE/OUTPA TIENT VISIT [facility], [address], [place], [address], [place] tel:[phone] [facility] Bursitis, trochanteric 4 Dilshad Scott. [address], [place], [place], [address]. tel:[phone] OFFICE/OUTPA TIENT VISIT [facility], [address], [address], [place] tel:[phone] [facility] Spinal stenosis of lumbar regionLow back painSciatica 0-201 4 Mau Van. [address] [place], [place], [address]. tel:[phone] OFFICE/OUTPA TIENT VISIT [facility], [address], [address], [place] tel:[phone] [facility] L L23 TFESI FOLLOW UP (chief complaint)75 % IMPROVEMENT (chief complaint)WA NTING NEW RX FOR PT (chief complaint) Spinal stenosis of lumbar regionLow back painSciatica Primary localized osteoarthros is, pelvic region and thighOsteoar throsis, localized, primary, knee Sep-2 6-201 4 Mau Van. [address] [place], [place], [address]. tel:[phone] OFFICE/OUTPA TIENT VISIT [facility], [address], [address], [place] tel:[phone] [facility] SciaticaLow back painSpinal stenosis of lumbar region 5-201 4 Mau Van. [address] [place], [place], [address]. tel:[phone] OFFICE/OUTPA TIENT VISIT [facility], [address], [address], [place] tel:[phone] [facility] Follow Up of back pain (chief complaint) Low back painSciatica 0-201 4 Mau Van. [address] [place], [place], [address]. tel:[phone] OFFICE/OUTPA TIENT VISIT [facility], [address], [address], [place] tel:[phone] [facility] Primary localized osteoarthros is, pelvic region and thigh 4 Mau Van. [address] [facility], [place], [place], [address]. tel:[phone] Referring Provider: Moises Howard Retired, Retired [address], [place], [address]. tel:[phone] Family History Family Member Type Diagnosis Age At Onset Mother Problem (finding) Father Problem (finding) Father Problem (finding) cancer (Cause Of ) Daughter Problem (finding) Alive and well Father Problem (finding) hypertension Brother Problem (finding) Alive and well Immunizations Vaccine Date Status Comments Influenza, injectable, quadr ivalent, preservative free, 3 yrs or older administered Source : Other Provider Pneumo (2 yrs or older)(PPV) administered Source: Other Provider Zoster administered Source: Other P rovider Pneumococcal, PCV-13 administered Source: Other Provider Payers Payer name Insurance type Covered libertarian ID Authoriza tion(s) No Information Social History Type Description Quantity Date Captured Comments Alcohol Use Details Unknown Caffeine Use Details Unknown Tobacco Use Status No Information Smoking Status No Information Sex Male Chief Complaint And Reason For Visit No Information Reason For Referral Reason For Referral No Information Plan Of Treatment Date Type Action Status Referral Ordered: ELECTROCARDIOGRAM COMPLETE ordered Referral Ordered: RADEX FNGR MINIMUM 2 VIEWS LT ordered Referral Ordered: RADEX KNE COMPL 4/MORE VIEWS RT ordered Referral Ordered: UPR/LXTR ASH DOPPLER STDY BILAT (Venous Doppler) Bilateral Appointment date/timeframe: 03/03/2015 ordered Referral Ordered: MRI SPI CANAL&CNTS LMBR C-MATRL Appointment date/timeframe: 05/26/2014 ordered Referral Ordered: RADEX PELVIS 1/2 VIEWS ordered History Of Present Illness Encounter Date Complaint History Of Prese nt Illness allergy evaluation Referred by Lucy Montano- whom she sees for seborrheic keratosis and some eczema that flares up in winter, he has Mometasone ointment to use PRN, he has a hx of allergy to shell fish ,cats , dust , pollens- but occasionally he develops a very itchy rash only on his arms and legs and he wants to know what he is allergic to , he was allergy tested in 1986 He does not eat shellfish - no other dietary restrictions - but has been having GI problems , he had an ultrasound today -and was told he has gall stones, may need to have surgery no pets at home which was built in 1979 , no water leak , seasonal changes- does not reproduce the rash , with seasonal changes he can have some runny nose , on Zyrtec daily as he is exposed to 5 cats at his son's and DIL's - last zyrtec was 7 dayslast CPE blood work was done at the end of may- all normal BILAT KNEE PAIN BACK PAIN PER SZ - WANTING TO TRY L HIP INJECTION L L23 TFESI FOLLOW UP 75% IMPROVEMENT WANTING NEW RX FOR PT Follow Up of back pain Functional Status Date Functional Assessmen t No Information Instructions Date Instruction Additional Infor diana Activity as tolerated. Related t o Spinal stenosis of lumbar region with neurogenic claudication Take medication as directed. Rel ated to Spinal stenosis of lumbar region with neurogenic claudication Apply ice and/or heat as tolerat ed Related to Spinal stenosis of lumbar region with neurogenic claudication Fall risk home exerc ise program handout provided Activity as tolerated. Related t o Spinal stenosis of lumbar region with neurogenic claudication Take medication as directed. Rel ated to Spinal stenosis of lumbar region with neurogenic claudication Apply ice and/or heat as tolerat ed Related to Spinal stenosis of lumbar region with neurogenic claudication Activity as tolerated Related to Lateral epicondylitis of left elbow Apply ice as tolerated. Related to Lateral epicondylitis of left elbow Giving encouragement to exercise Related to Body mass index (BMI) 28.0-28.9, adult Education provided o n triggers to avoid. Related to Food allergy Environmental counseling provide d. Related to Other allergic rhinitis Education provided o n triggers to avoid. Related to Other allergic rhinitis Activity as tolerated. Related t o Trigger finger of right thumb Ice as needed. Related to Forrest er finger of right thumb Apply ice as instructed. Related to Trigger finger of right thumb apply heating pad or ice as tolerated Related to Primary osteoarthritis of right knee activity as tolerated Related to Primary osteoarthritis of right knee Giving encouragement to exercise Related to Body mass index (BMI) 28.0-28.9, adult apply heating pad or ice as tolerated Related to Primary osteoarthritis of right knee activity as tolerated Related to Primary osteoarthritis of right knee Ice as needed. Related to Forrest er little finger of left hand Activity as tolerated. Related t o Trigger little finger of left hand Apply ice as instructed. Related to Trigger little finger of left hand activity as tolerated Related to Primary osteoarthritis of right knee elevate higher than your heart R elated to Primary osteoarthritis of right knee Activity as tolerated. Related t o Primary localized osteoarthrosis, pelvic region and thigh Take medication as prescribed. R elated to Primary localized osteoarthrosis, pelvic region and thigh Apply ice as instructed. Related to Primary localized osteoarthrosis, pelvic region and thigh Activity as tolerated. Related t o Low back pain Avoid prolonged bed rest. Relate d to Low back pain Avoid prolonged bed rest. Relate d to Low back pain Activity as tolerated. Related t o Low back pain Assessments Type Assessment Date assessment Lateral epicondylitis of left el bow assessment Encounter for preprocedural card iovascular examination Patient Care Teams Name Effective Dates (start - stop) Status Members No Information
--- OUTSIDE RECORDS SUMMARY | 2025-05-16 01:12 | XMS_ITS | Encounter Summary ---
Author Organization [facility] Address 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
--- OUTSIDE RECORDS SUMMARY | 2025-05-16 01:12 | XMS_ITS | Encounter Summary ---
Author Organization [facility] Address [address] [place] [address] Care Team Providers Care Air Conditioner Installer Helper Name Role Phone Bartolome Arriola MD Primary [...] AM CDT Legal Sex Male 4:17 AM PROGRAM ASSISTANT Gender Identity Male 06/26/2024 8:42 AM [...] on filedocumented in this encounter Care Teams Air Conditioner Installer Helper Relationship Specialty Start Date End Date Bartolome Arriola MD PCP - General Internal Medicine 08/17/20 documented as of this encounter
--- OUTSIDE RECORDS SUMMARY | 2025-05-16 01:12 | XMS_ITS | Encounter Summary ---
Author Organization [facility] Address [address] [place] [address] Care Team Providers Care Full Decator Operator Name Role Phone Bartolome Arriola MD [...] AM CDT Legal Sex Male 4:17 AM MANUFACTURING TECHNOLOGY ANALYST Gender Identity Male 06/26/2024 8:42 AM CDT [...] on filedocumented in this encounter Care Teams Full Decator Operator Relationship Specialty Start Date End Date Bartolome Arriola MD PCP - General Internal Medicine 08/17/20 documented as of this encounter
--- OUTSIDE RECORDS SUMMARY | 2025-05-16 01:12 | XMS_ITS | Encounter Summary ---
Author Organization [facility] Address 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
--- OUTSIDE RECORDS SUMMARY | 2025-05-16 01:12 | XMS_ITS | Encounter Summary ---
Author Organization [facility] Address [address] [place] [address] Care Team Providers Care Kindergarten Teacher Assistant Name Role Phone Bartolome Arriola MD Primary [...] AM CDT Legal Sex Male 4:17 AM ANVIL SEATING PRESS OPERATOR Gender Identity Male 06/26/2024 8:42 AM [...] on filedocumented in this encounter Care Teams Kindergarten Teacher Assistant Relationship Specialty Start Date End Date Bartolome Arriola MD PCP - General Internal Medicine 08/17/20 documented as of this encounter
--- OUTSIDE RECORDS SUMMARY | 2025-05-16 01:13 | XMS_ITS | Encounter Summary ---
Author Organization [facility] Address [address] [place] [address] Care Team Providers Care Bonded Structures Repairer Name Role Phone Bartolome Arriola MD Primary Care Provider Unavailable Encounter Details Date Type Department Care Team (Latest Contact Info) Description 06/02/2003 Outpatient Historical HIS 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
--- OUTSIDE RECORDS SUMMARY | 2025-05-16 01:13 | XMS_ITS | Encounter Summary ---
Author Organization [facility] Address [address] [place] [address] Care Team Providers Care Director Machine Name Role Phone Bartolome Arriola MD Primary [...] AM CDT Legal Sex Male 4:17 AM TECHNICAL ACCOUNT EXECUTIVE Gender Identity Male 06/26/2024 8:42 AM CDT [...] filedocumented in this encounter Care Teams Director Machine Relationship Specialty Start Date End Date Bartolome Arriola MD PCP - General Internal Medicine 08/17/20 documented as of this encounter
--- OUTSIDE RECORDS SUMMARY | 2025-05-16 01:13 | XMS_ITS | Data Portability ---
Author Organization [employer], [facility] OFF[facility] Address [address] [place] [id number] Care Team Providers Care Opener Name Role Phone TEJAS SOLIS Primary Care [...] or plasma - Non-fastin g 2018 019 Phone2Action [facility], [address], [place], [address], 9 01:05:07 vitamin D, 25-hydroxy , total, serum - Non-fastin g 2018 019 Phone2Action [facility], [address], [address], [place], [address], 9 01:05:07 testostero ne, free, serum - Non-fastin g 2018 019 Phone2Action [facility], [address], [address], [place], [address], 9 01:05:07 testostero ne, total, serum - Non-fastin g 2018 019 [facility], [address], [address], [place], [address], 9 01:05:06 CBC w/ auto diff - Non-fastin g 2018 019 [facility], [address], [address], [place], [address], 9 01:05:06 Referral None recorded. Procedures None recorded. Surgeries None recorded. Imaging XR, knee - Pt in lobby, please return him to the lobby after his xray and I'll grab him when my room is available 2019 020 [email or web address] Not available 0 14:02:00 XR, elbow - room 6 2018 019 [email or web address] Not available 9 11:24:33 Medication Orders None recorded. Patient TargetsNo targets recorded. Patient Instructions Encounter Date Encounter Id Patient Instructions Last Modified By Organization Details Last Modified Time 07/02/2018 [id number] knee arthritis: care instructions Not available 07/02/2018 09:44:27 Reason for Referral None Reported. Results Created Date Observation Date Name Description Value Unit Range Abnormal Flag Note LastModifiedBy Organization Detail LastModifiedTime 03/17/20 19 03/21/2019 CBC w/ auto diff white blood cell count 7.2 thous and/u L 3.8-10 .8 normal Not Available [employer] [facility] [address] [place], [address], 03/21/2019 01:05:06 03/17/20 19 03/21/2019 CBC w/ auto diff red blood cell count 4.02 kiesha on/uL 4.20-5 .80 low Not Available [employer] [facility] [address] [place], [address], 03/21/2019 01:05:06 03/17/20 19 03/21/2019 CBC w/ auto diff hemoglobin 12.3 g/dL 13.2-1 7.1 low Not Available [address], [address], 03/21/2019 01:05:06 03/17/20 19 03/21/2019 CBC w/ auto diff hematocrit 37.4 % 38.5-5 0.0 low Not Available [address], [address], 03/21/2019 01:05:06 03/17/20 19 03/21/2019 CBC w/ auto diff MCV 93.0 fL 80.0-1 00.0 normal Not Available [address], [address], 03/21/2019 01:05:06 03/17/20 19 03/21/2019 CBC w/ auto diff MCH 30.6 pg 27.0-3 3.0 normal Not Available [address], [address], 03/21/2019 01:05:06 03/17/20 19 03/21/2019 CBC w/ auto diff MCHC 32.9 g/dL 32.0-3 6.0 normal Not Available [address], [address], 03/21/2019 01:05:06 03/17/20 19 03/21/2019 CBC w/ auto diff RDW 12.7 % 11.0-1 5.0 normal Not Available [address], [address], 03/21/2019 01:05:06 03/17/20 19 03/21/2019 CBC w/ auto diff platelet count 275 thous and/u L 140-40 0 normal Not Available [address], [address], 03/21/2019 01:05:06 03/17/20 19 03/21/2019 CBC w/ auto diff MPV 11.1 fL 7.5-12 .5 normal Not Available [address], [address], 03/21/2019 01:05:06 03/17/20 19 03/21/2019 CBC w/ auto diff absolute neutrophils 4522 cells /uL 1500-7 800 normal Not Available [address], [address], 03/21/2019 01:05:06 03/17/20 19 03/21/2019 CBC w/ auto diff absolute lymphocytes 1757 cells /uL 850-39 00 normal Not Available [address], [address], 03/21/2019 01:05:06 03/17/20 19 03/21/2019 CBC w/ auto diff absolute monocytes 734 cells /uL 200-95 0 normal Not Available [address], [address], 03/21/2019 01:05:06 03/17/20 19 03/21/2019 CBC w/ auto diff absolute eosinophils 158 cells /uL 15-500 normal Not Available [address], [address], 03/21/2019 01:05:06 03/17/20 19 03/21/2019 CBC w/ auto diff absolute basophils 29 cells /uL 0-200 normal Not Available [address], [address], 03/21/2019 01:05:06 03/17/20 19 03/21/2019 CBC w/ auto diff neutrophils 62.8 % normal Not Available [address], [address], 03/21/2019 01:05:06 03/17/20 19 03/21/2019 CBC w/ auto diff lymphocytes 24.4 % normal Not Available [facility] [place] [address] [place], [address], 03/21/2019 01:05:06 03/17/20 19 03/21/2019 CBC w/ auto diff monocytes 10.2 % normal Not Available [facility] [place] [address] [place], [address], 03/21/2019 01:05:06 03/17/2003/21/2019 CBC w/ auto diff eosinophils 2.2 % normal Not Available [facility] [address] [place] [address] [place], [address], 03/21/2019 01:05:06 03/17/2003/21/2019 CBC w/ auto diff basophils 0.4 % normal Not Available [employer] [facility] [address] [place], [address], 03/21/2019 01:05:06 03/17/2003/21/2019 testo stero ne, total [...] op tube with no gel. Not Available [facility] [address] [place], [address], 03/21/2019 01:05:06 03/17/2003/21/2019 PSA, serum or plasm [...] not be inter prete d as absol pechanga evide nce of the prese nce or absen ce of disea se. Not Available [employer] [place] [address] [place], [address], 03/21/2019 01:05:06 03/17/2003/21/2019 vitam in D, 25-hy [...] /MS is recom rupali d: order code 85280 (primitivo ents >2yrs ). For more infor asa garcia on this test, go to: http: //radha millan stdia gnost ics.c om/fa q/FAQ 163 (This link is being provi ded for infor asa nal/e ducat ional purpo ses only. ) Not Available [employer] [facility] [address] [place], [address], 03/21/2019 01:05:07 03/17/2003/21/2019 testo stero ne, free, serum testosterone , free 4.3 pg/mL 6.0-73 .0 low This test was devel oped and its marjan tical perfo rmanc e jean cteri stics have been deter mined by [employer] [facility] singh Wynn cia. It has not been clear ed or appro brittany by the US Food and Drug Admin istra tion. This assay has been valid ated pursu ant to the CLIA regul ation s and is used for clini tristan purpo ses. Not Available [employer] [place] [address] [place], [address], 03/21/2019 01:05:07 06/05/20 19 06/09/2019 CBC w/ auto diff white blood cell count 7.8 thous and/u L 3.8-10 .8 normal Not Available [employer] [place] [address] [place], [address], 06/09/2019 17:08:21 06/05/20 19 06/09/2019 CBC w/ auto diff red blood cell count 5.06 kiesha on/uL 4.20-5 .80 normal Not Available [employer] [facility] [address] [address] [place], [address], 06/09/2019 17:08:21 06/05/20 19 06/09/2019 CBC w/ auto diff hemoglobin 15.3 g/dL 13.2-1 7.1 normal Not Available [employer] [facility] [address] [place] [address] [place], [address], 06/09/2019 17:08:21 06/05/20 19 06/09/2019 CBC w/ auto diff hematocrit 46.9 % 38.5-5 0.0 normal Not Available [employer] [facility] [address] [place] [address] [place], [address], 06/09/2019 17:08:21 06/05/20 19 06/09/2019 CBC w/ auto diff MCV 92.7 fL 80.0-1 00.0 normal Not Available [employer] [facility] [place] [address] [place], [address], 06/09/2019 17:08:21 06/05/20 19 06/09/2019 CBC w/ auto diff MCH 30.2 pg 27.0-3 3.0 normal Not Available [address], [address], 06/09/2019 17:08:21 06/05/20 19 06/09/2019 CBC w/ auto diff MCHC 32.6 g/dL 32.0-3 6.0 normal Not Available [address], [address], 06/09/2019 17:08:21 06/05/20 19 06/09/2019 CBC w/ auto diff RDW 12.7 % 11.0-1 5.0 normal Not Available [address], [address], 06/09/2019 17:08:21 06/05/20 19 06/09/2019 CBC w/ auto diff platelet count 319 thous and/u L 140-40 0 normal Not Available [address], [address], 06/09/2019 17:08:21 06/05/20 19 06/09/2019 CBC w/ auto diff MPV 10.4 fL 7.5-12 .5 normal Not Available [address], [address], 06/09/2019 17:08:21 06/05/20 19 06/09/2019 CBC w/ auto diff absolute neutrophils 4859 cells /uL 1500-7 800 normal Not Available [address], [address], 06/09/2019 17:08:21 06/05/20 19 06/09/2019 CBC w/ auto diff absolute lymphocytes 1716 cells /uL 850-39 00 normal Not Available [address], [address], 06/09/2019 17:08:21 06/05/20 19 06/09/2019 CBC w/ auto diff absolute monocytes 1084 cells /uL 200-95 0 high Not Available [place] [address] [place], [address], 06/09/2019 17:08:21 06/05/20 19 06/09/2019 CBC w/ auto diff absolute eosinophils 101 cells /uL 15-500 normal Not Available [address] [address] [place], [address], 06/09/2019 17:08:21 06/05/20 19 06/09/2019 CBC w/ auto diff absolute basophils 39 cells /uL 0-200 normal Not Available [address] [address] [place], [address], 06/09/2019 17:08:21 06/05/20 19 06/09/2019 CBC w/ auto diff neutrophils 62.3 % normal Not Available [address] [place], [address], 06/09/2019 17:08:21 06/05/20 19 06/09/2019 CBC w/ auto diff lymphocytes 22.0 % normal Not Available [address], [address], 06/09/2019 17:08:21 06/05/20 19 06/09/2019 CBC w/ auto diff monocytes 13.9 % normal Not Available [address] [address] [place], [address], 06/09/2019 17:08:21 06/05/20 19 06/09/2019 CBC w/ auto diff eosinophils 1.3 % normal Not Available [address] [address] [place], [address], 06/09/2019 17:08:21 06/05/20 19 06/09/2019 CBC w/ auto diff basophils 0.5 % normal Not Available [address] [address] [place], [address], 06/09/2019 17:08:21 06/05/20 19 06/09/2019 vitam in [...] /MS is recom rupali d: order code 72667 (primitivo ents >2yrs ). For more infor asa garcia on this test, go to: http: //[facility] marcie garcia.wilmar stdia gnost ics.c om/fa q/FAQ 163 (This link is being provi ded for infor asa nal/e ducat ional purpo ses only. ) Not Available [facility] [address], [place], [address], 06/09/2019 17:08:22 06/05/20 19 06/09/2019 testo stero [...] cteri stics have been deter mined by [employer]. It has not been clear ed or appro brittany by the US Food and Drug Admin istra tion. This assay has been valid ated pursu ant to the CLIA regul ation s and is used for clini tristan purpo ses. Not Available [employer] [place] [address] [place], [address], 06/09/2019 17:08:22 06/05/20 19 06/09/2019 testo stero ne, free, serum testosterone , free 214.6 pg/mL 6.0-73 .0 high This test was devel oped and its marjan tical perfo rmanc e jean cteri stics have been deter mined by [employer]. It has not been clear ed or appro brittany by the US Food and Drug Admin istra tion. This assay has been valid ated pursu ant to the CLIA regul ation s and is used for clini tristan purpo ses. Not Available [employer] [facility] [address] [place], [address], 06/09/2019 17:08:23 09/21/20 19 09/24/2019 testo stero ne, free, serum testosterone , free 352.8 pg/mL 6.0-73 .0 high This test was devel oped and its marjan tical perfo rmanc e jean cteri stics have been deter mined by [employer]. It has not been clear ed or appro brittany by the FDA. This assay has been valid ated pursu ant to the CLIA regul ation s and is used for clini tristan purpo ses. Not Available [employer] [address], [place], [address], 09/24/2019 18:34:58 09/21/2009/24/2019 hemog lobin + hemat ocrit , blood hemoglobin 15.9 g/dL 13.2-1 7.1 normal Not Available [facility] [address] [place] [address], [place], [address], 09/24/2019 18:34:59 09/21/2009/24/2019 hemog lobin + hemat ocrit , blood hematocrit 49.3 % 38.5-5 0.0 normal Not Available [facility] [address] [place], [place], [address], 09/24/2019 18:34:59 09/21/2009/24/2019 vitam in D, 25-hy [...] /MS is recom rupali d: order code 84914 (primitivo ents >2yrs ). For more infor asa garcia on this test, go to: http: //radha cohenia gnost ics.c om/fa q/FAQ 163 (This link is being provi ded for infor asa nal/e ducat ional purpo ses only. ) Not Available [address], [place], [address], 09/24/2019 18:34:59 09/21/2009/24/2019 testo stero ne, total [...] infor mike bolivar e refer to http: //[facility] marcie garcia.que stdia gnost ics.c om/fa q/Tot al Testo stero neLCM SMS (This link is being provi ded for infor asa nal/e ducat ional purpo ses only. ) This test was devel oped and its marjan tical perfo rmanc e jean cteri stics have been deter mined by [employer]. It has not been clear ed or appro brittany by the FDA. This assay has been valid ated pursu ant to the CLIA regul ation s and is used for clini tristan purpo ses. Not Available [employer] [facility] [address] [place], [address], 09/24/2019 18:34:59 11/20/1911/23/2020 testo stero ne, free, serum testosterone , free 71.8 pg/mL 6.0-73 .0 This test was devel oped and its marjan tical perfo rmanc e jean cteri stics have been deter mined by [employer]. It has not been clear ed or appro brittany by the FDA. This assay has been valid ated pursu ant to the CLIA regul ation s and is used for clini tristan purpo ses. Not Available [employer] [facility] [address] [place], [address], 11/23/2020 20:19:26 11/20/1911/23/2020 PSA, serum or plasm [...] not be inter prete d as absol pechanga evide nce of the prese nce or absen ce of disea se. Not Available [employer] [place] [address] [place], [address], 11/23/2020 20:19:27 11/20/19 21 11/23/2020 vitam in [...] /MS is recom rupali d: order code 33762 (primitivo ents >2yrs ). See Note 1 Note 1 For addit ional infor mike bolivar e refer to http: //radha Horvath gnkiana ics.c om/fa q/FAQ 199 (This link is being provi ded for infor asa santizo/ educmarilyn arguello purpo ses only. ) Not Available [employer] [facility] [address] [place], [address], 11/23/2020 20:19:27 11/20/19 21 11/23/2020 testo stero [...] infor mike bolivar e refer to http: //[facility] marcie garcia.que stdia gnost ics.c om/fa q/Tot al Testo stero neLCM SMS (This link is being provi ded for infor asa nal/e ducat ional purpo ses only. ) This test was devel oped and its marjan tical perfo rmanc e jean cteri stics have been deter mined by [employer]. It has not been clear ed or appro brittany by the FDA. This assay has been valid ated pursu ant to the CLIA regul ation s and is used for clini tristan purpo ses. Not Available [employer] [facility] [address], [place], [address], 11/23/2020 20:19:28 05/11/20 24 05/14/2024 PSA, TOTAL [...] not be inter prete d as absol pechanga evide nce of the prese nce or absen ce of [facility]. Not Available [address], [address], 05/14/2024 13:25:15 06/07/2006/10/2024 TESTO STERO NE, FREE, BIOAV AILAB LE AND TOTAL , MS albumin 3.9 g/dL 3.6-5. 1 Not Available [address], [address], 06/10/2024 07:39:48 06/07/2006/10/2024 TESTO STERO NE, FREE, BIOAV AILAB LE AND TOTAL , MS sex hormone binding globulin 60.6 nmol/ L Not Available [address], [address], 06/10/2024 07:39:48 06/07/20 24 06/10/2024 TESTO STERO NE, FREE, BIOAV AILAB LE AND TOTAL , MS testosterone , free 116.6 pg/mL 6.0-73 .0 high Not Available [address], [address], 06/10/2024 07:39:48 06/07/20 24 06/10/2024 TESTO STERO NE, FREE, BIOAV AILAB LE AND TOTAL , MS testosterone ,bioavailabl e 209.4 NG/dL 15.0-1 50.0 high Not Available [address], [address], 06/10/2024 07:39:48 06/07/2006/10/2024 TESTO STERO NE, FREE, BIOAV AILAB LE AND TOTAL , MS testosterone , total, MS 1216 NG/dL 250-11 00 high For addit ional mike huizar e refer to https ://ed alexisati on.dodie abbasi SeeFuture. com/f aq/FA Q165 (This link is being provi ded for infor matio nal/e ducat ional purpo ses only. ) (Note ) This test was devel locoed and its marjan tical perfo rmanc e jean cteri stics have been deter mined by [email or web address]. It has not been clear ed or appro brittany by the FDA. This assay has been valid ated pursu ant to the CLIA regul ation s and is used for clini tristan purpo ses. MDF med fusio n [address] [facility] [address] [facility] [place] [address] [phone] [facility] Berry MD, PhD Not Available [employer] [address] [place], [address], 06/10/2024 07:39:48 06/07/20 24 06/10/2024 CBC (INCL UDES DIFF/ PLT) white blood cell count 7.3 thous and/u L 3.8-10 .8 normal Not Available [address], [address], 06/10/2024 07:39:48 06/07/20 24 06/10/2024 CBC (INCL UDES DIFF/ PLT) red blood cell count 4.89 kiesha on/uL 4.20-5 .80 normal Not Available [address] [address] [place], [address], 06/10/2024 07:39:48 06/07/20 24 06/10/2024 CBC (INCL UDES DIFF/ PLT) hemoglobin 15.6 g/dL 13.2-1 7.1 normal Not Available [employer] [address], [address], 06/10/2024 07:39:48 06/07/20 24 06/10/2024 CBC (INCL UDES DIFF/ PLT) hematocrit 48.0 % 38.5-5 0.0 normal Not Available [employer] [address], [address], 06/10/2024 07:39:48 06/07/20 24 06/10/2024 CBC (INCL UDES DIFF/ PLT) MCV 98.2 fL 80.0-1 00.0 normal Not Available [address], [address], 06/10/2024 07:39:48 06/07/20 24 06/10/2024 CBC (INCL UDES DIFF/ PLT) MCH 31.9 pg 27.0-3 3.0 normal Not Available [address], [address], 06/10/2024 07:39:48 06/07/20 24 06/10/2024 CBC (INCL UDES DIFF/ PLT) MCHC 32.5 g/dL 32.0-3 6.0 normal Not Available [address], [address], 06/10/2024 07:39:48 06/07/20 24 06/10/2024 CBC (INCL UDES DIFF/ PLT) RDW 13.3 % 11.0-1 5.0 normal Not Available [address], [address], 06/10/2024 07:39:48 06/07/20 24 06/10/2024 CBC (INCL UDES DIFF/ PLT) platelet count 202 thous and/u L 140-40 0 normal Not Available [address], [address], 06/10/2024 07:39:48 06/07/20 24 06/10/2024 CBC (INCL UDES DIFF/ PLT) MPV 11.7 fL 7.5-12 .5 normal Not Available [address], [address], 06/10/2024 07:39:48 06/07/20 24 06/10/2024 CBC (INCL UDES DIFF/ PLT) absolute neutrophils 4504 cells /uL 1500-7 800 normal Not Available [address], [address], 06/10/2024 07:39:48 06/07/20 24 06/10/2024 CBC (INCL UDES DIFF/ PLT) absolute lymphocytes 1803 cells /uL 850-39 00 normal Not Available [address], [address], 06/10/2024 07:39:48 06/07/20 24 06/10/2024 CBC (INCL UDES DIFF/ PLT) absolute monocytes 825 cells /uL 200-95 0 normal Not Available [address], [address], 06/10/2024 07:39:48 06/07/20 24 06/10/2024 CBC (INCL UDES DIFF/ PLT) absolute eosinophils 139 cells /uL 15-500 normal Not Available [address], [address], 06/10/2024 07:39:48 06/07/20 24 06/10/2024 CBC (INCL UDES DIFF/ PLT) absolute basophils 29 cells /uL 0-200 normal Not Available [address], [address], 06/10/2024 07:39:48 06/07/20 24 06/10/2024 CBC (INCL UDES DIFF/ PLT) neutrophils 61.7 % normal Not Available [address], [address], 06/10/2024 07:39:48 06/07/20 24 06/10/2024 CBC (INCL UDES DIFF/ PLT) lymphocytes 24.7 % normal Not Available [address], [address], 06/10/2024 07:39:48 06/07/20 24 06/10/2024 CBC (INCL UDES DIFF/ PLT) monocytes 11.3 % normal Not Available [facility] [address] [place] [address] [place], [address], 06/10/2024 07:39:48 06/07/20 24 06/10/2024 CBC (INCL UDES DIFF/ PLT) eosinophils 1.9 % normal Not Available [facility] [place] [address] [place], [address], 06/10/2024 07:39:48 06/07/20 24 06/10/2024 CBC (INCL UDES DIFF/ PLT) basophils 0.4 % normal Not Available [facility] [place] [address] [place], [address], 06/10/2024 07:39:48 06/07/20 24 06/10/2024 ESTRA DIOL [...] is recom rupali d (orde r code 65704 ). Plebrant e note: patie nts being [...] s. [facility] order code 89191 -Estr adiol , Ultra sensi tive LC/MS /MS demon strat es negli gible cross react ivity with fulve stran t. Not Available [employer] [address], [place], [address], 06/10/2024 07:39:49 10/06/20 19 08/25/2019 physi tristan aly py* No observ ation record ed. BARCODE Not Available 2018 18:42:59 Result Notes None recorded. Problems Name Problem SNOMED Code Status Onset Date Resolution Date Notes Provider Name and Address Organization Details Recorded Time Pain of hip region 05794580 Active Latia Saavedralieu [address], [place], [address], [place] [facility] 5 10:20:05 Osteoarthritis of hip 754235459 Active Latia [place] [address], [place], [address], [place] [facility] 5 10:20:05 Sciatica 63397160 Active Latia [place] [address], [place], [address], [place] [facility] 5 10:20:05 Chronic sciatica 510128482 Active Latia Tasia [address], [place], [address], [place] [facility] 5 10:20:05 Problem Notes None recorded. Procedures Surgical History Date Name Laterality Status Provider Name and Address Organization Details Recorded Time 07/12/20 24 Laboratory Test completed Bruno Bardales [address], [place], [address], [place] [facility] 07/12/2024 11:11:25 12/08/19 20 Generic Procedure completed GREGORY PADGETT [address], [place], [address], [place] [facility] 12/08/2019 15:20:36 03/17/20 19 Generic Procedure completed [place] [facility] 03/17/2019 11:14:38 05/21/20 18 Generic Procedure completed LASHAWN NICOLAS PA-C [address], [place], [address], [facility] [employer], [facility] 05/22/2018 00:26:49 07/14/20 17 Generic Procedure completed LASHAWN NICOLAS PA-C [address], [place], [address], [facility] [employer], [facility] 07/14/2017 12:53:12 04/19/20 09 Colonoscopy completed Latia Dozier [address], [place], [address], [facility] [employer], [facility] 01/10/2015 15:01:41 10/20/19 01 Flexible Sigmoidoscopy completed Latia Dozier [address], [place], [address], [facility] [employer], [facility] 01/10/2015 15:01:41 03/20/19 50 Tonsillectomy completed Latia Dozier [address], [place], [address], [facility] [employer], [facility] 01/10/2015 15:01:41 Joint Replacement completed Millicentbridgette Armenta [facility], [facility] 12/08/2019 14:07:54 Hip Surgery completed Millicent Armenta [facility] [employer] [facility], [facility] 12/08/2019 14:07:54 Gastrointestinal Surgery completed Millicentbridgette Armenta [facility] [employer] [facility], [facility] 12/08/2019 14:07:54 Imaging Results None recorded. Procedure Notes None recorded. Medical Equipment None Reported. Allergies Allergen ID Allergen Name Allergen Category Reaction Reaction Severity Criticality Documentation Date Start Date Code Code System Note Provider Name and Address Organization Details Recorded Time cat hair extract medicatio n Not available Not available Not available 01/10/20151987 32761 3 RxNorm Millicent meraz [facility] [employer], [facility] 0 14:07:03 57963 short ragweed pollen extract medicatio n Not available Not available Not available 01/10/20151969 43972 5 RxNorm Latia Dozier [address],[facility] [address], [place], [address], [facility], [facility] 5 15:00:13 [address] shellfish derived food,medi cation Not available Not available Not available 01/10/20151984 [id number] UNK Millicent Armenta [facility], [facility], [facility] 0 14:07:03 [id number] Augmentin medicatio n Not available Not available Not available 07/14/2017 [id number] RxNorm Millicent meraz [facility], [facility] 0 14:07:03 17673 cat dander environme nt Not available Not available Not available 12/08/2019 [id number] UNRj [facility] 0 14:07:03 Medications Name Sig Start Date [...] Not Available Not Available BD Regular Bevel Babcock 25 gauge x 1 1/2 USE TO [...] active Not Available Not Available Not Available [employer] ech COVID-19 Vaccine (PF) 30 mcg/0.3 mL [...] Updated DateTime 12/08/2019 187.96 cm 27.9 kg/m2 21840.54 g 79 /min 148/79 mm[Hg] Millicent Armenta [facility], [facility] 12/08/2019 14:05:59 Date Recorded Body height Body mass index (BMI) Body weight Heart rate Systolic And Diastolic Provider Name and Address Organization Details Last Updated DateTime 03/17/2019 187.96 cm 27.9 kg/m2 83262.54 g 67 /min 164/79 mm[Hg] Abigail Decker [employer], [employer] 9 10:12:02 Date Recorded Body height Body mass index (BMI) Body weight Heart rate Systolic And Diastolic Provider Name and Address Organization Details Last Updated DateTime 06/18/2018 187.96 cm 27.9 kg/m2 58292.54 g 65 /min 126/84 mm[Hg] Abigail Decker [employer], [employer] 8 15:34:22 Date Recorded Body height Body mass index (BMI) Body weight Heart rate Systolic And Diastolic Provider Name and Address Organization Details Last Updated DateTime 07/02/2018 187.96 cm 27.9 kg/m2 13320.54 g 67 /min 122/80 mm[Hg] Latia Dozier [address], [place], [address] , [employer], [employer] 07/02/2018 09:44:13 Social History Question Answer Notes LastModified by Organizat ion Details LastModified Time Tobacco Smoking Status Former Smoker Latia Dozier [address], [place], [address], [employer], [facility] 01/10/2015 15:01:21 Do You Have An Advance [...] available 01/10/2015 Who Is Your Employer? Our [employer] Information not available 01/10/2015 Which Of Your [...] What Is The Name Of Your School? 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 Information not available 07/14/2017 What is your [...] available 2019 14:07:12 Medical History Condition Response Coronary Artery Disease N HIV or AIDS N Other Cancer N Gout N Kidney Stones N Hyperthyroidism N Breast Cancer N Hernia N Head Trauma/Injury N Lung Cancer N Blood Clots N COPD N Depression N Lung Disease N Hypothyroidism N Pacemaker N Anxiety Disorder N Arthritis Y Kidney Cancer N Cancer N Stroke N Neck Injury N Leg or Foot Ulcers N High Cholesterol Y Liver Disease N Rheumatoid Arthritis N Headaches N Fibromyalgia N Kidney Disease N Heart Problems N Prostate Cancer N Migraines N Thyroid Problems N Anemia N Multiple Sclerosis N Ulcers N Heart Attack (ME) N Diabetes N Bleeding Disorder N Seizures/Epilepsy [...] unspecified formulation 07/01/200 5 completed Latia Tasia [address], [place], [address], [employer] [facility], [facility] 01/10/2015 15:02:12 polio, unspecified formulation 5 completed Latia Tasia [address], [place], [address], [facility] [employer] [facility], [facility] 01/10/2015 15:02:12 Influenza, split virus, trivalent, preservative 4 completed Latia [place] [address], [place], [address], [facility] [employer] [facility], [facility] 01/10/2015 15:02:12 Past Encounters Encounter ID Performer Location Encounter Start Date Encounter Closed Date Diagnosis/Indication Diagnosis SNOMED-CT Code Diagnosis ICD10 Code Diagnosis Note [id number] Kings Bowen MD [facility] [address] [facility] [address] [place] [address] 01/10/2015 14:26:27 01/10/2015 16:12:40 Pain of hip region 86590738 Osteoarthritis of hip 486930867 Sciatica 46299033 Chronic sciatica 618959230 [id number] Kings Bowen MD [facility] [address] 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 [facility] [address] [place] [address] 10/23/2017 08:53:38 10/23/2017 10:34:38 Knee pain 58571441 M25.561 M25.562 Osteoarthr itis of knee 334693507 M17.0 Chondromal acia of patella 89444878 M22.41 M22.42 Derangemen t of meniscus 724158557 M23.251 [id number] Kings Bowen MD [facility] [address] [place] [address] 01/20/2018 11:33:15 01/20/2018 13:31:46 Knee pain 68555658 M25.561 M25.562 Osteoarthr itis of knee 204423617 M17.0 Chondromal acia of patella 46072064 M22.41 M22.42 Derangemen t of meniscus 947809159 M23.251 [id number] Kings Bowen MD [facility] [address] [place] [address] 05/21/2018 14:59:30 05/21/2018 16:01:23 Knee pain 59351003 M25.561 M25.562 Osteoarthr itis of knee 003659818 M17.0 Chondromal acia of patella 30191757 M22.41 M22.42 Derangemen t of meniscus 914392582 M23.251 [id number] Kings Bowen MD [facility] [address] [place] [address] 06/04/2018 14:57:10 06/04/2018 16:08:54 Knee pain 20148897 M25.561 M25.562 Osteoarthr itis of knee 739297650 M17.0 Chondromal acia of patella 46536579 M22.41 M22.42 Derangemen t of meniscus 483045349 M23.251 [id number] Kings Bowen MD [facility] [address] [place] [address] 06/18/2018 15:06:53 06/18/2018 15:50:59 [id number] Kings Bowen MD [facility] [address] [place] [address] 07/02/2018 08:30:28 07/02/2018 09:18:44 Osteoarthritis of knee 994365898 M17.11 M17.12 [id number] GREGORY PADGETT [facility] [address] [place] [address] 03/17/2019 09:54:40 03/17/2019 10:52:21 Pain of elbow region 67850749 M25.522 Malaise and fatigue 2717 88093 R53.83 M89.9 M94.9 Z12.5 Z01.812 R53.81 Lateral epicondylitis 20 3272722 M77.12 Osteoarthr itis of elbow 202274778 M19.022 [id number] GREGORY PADGETT [facility] [address] [facility] [address] [place] [address] 12/08/2019 13:12:58 12/14/2019 10:35:59 Knee pain 37857383 M25.562 Osteoarthr itis of left knee joint 1497822376 60484 M17.12 at today's office visit I had discussed with the patient that I do feel that his pain and discomfort is originatin g from the exercises that he was doing with the abduction exercises at [employer]. This started his pain and discomfort is improving since he has discontinu ed the exercises. We had a discussion about continuing to do so over [facility] however modifying activity that bothers his knees. All questions were answered. He understood the treatment plan. Greater than 30 minutes face-to-fa ce visit with more than 15 minutes of my time spent counseling the patient about their diagnosis including pathophysi ology and treatment options. [id number] Bruno Jeffy [facility]MAIN OFFICE [address] [place] [address] 07/12/2024 10:32:54 07/12/2024 10:51:04 Male hypogonadism 69660114 E29.1 Stay the course with testostero ne [...] 2 KOHLI CONSUMER (MEDICARE SUPPLEMENT) Herson Godoy [id number] Herson Godoy 01/10/2015 1 *SELF PAY* Hafsa solange Godoy 12/15/2024 1 MEDICARE B[place]: WPS Herson Godoy [id number] Herson Godoy 12/15/2024 2 [place]) [id number] Herson Godoy [id number] Herson Godoy 2024 2 AETNA [employer] (MEDICARE SUPPLEMENT) Herson Godoy [id number] Herson Godoy Notes Date Note Type Note [...] form 4/10 to 5/10.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 He enjoys riding a stationary bike. He had BMAC/fat of right and left knee in 10/2017 with moderate improvements. He has a history of hypertension and hyperlipidemia. He also had bilateral total hip arthroplasty and trigger thumb surgery. RASHID Saleh [facility] [employer], [facility] 03/17/2019 12:10:20 12/08/2019 text/html Pain Score Pain scale from 0-10, 10 being the worst 2 Chief Complaint Pain scale from 0-10, 10 being the worst 2 Imported from [facility] on 12/08/2019 74-year-old male who comes in today for follow-up visit regarding his left knee he was treated with BMAC 10/2017, PRP 01/2018, and a series of prolotherapy 2017. He started having pain again after doing abduction exercises with a band around the ankle. GREGORY PADGETT [address], [place], [address], [facility] [employer] [facility], [facility] 12/08/2019 15:21:56 07/12/2024 text/html Here today for follow-up regarding his use of testosterone replacement therapy. He is doing well. No side effects. Bruno Bardales [address] [facility] [address], [place], [address], [facility] [employer], [facility] 07/12/2024 11:12:16
--- OUTSIDE RECORDS SUMMARY | 2025-05-16 01:13 | XMS_ITS | Encounter Summary ---
Author Organization [facility] Address 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
--- OUTSIDE RECORDS SUMMARY | 2025-05-16 01:13 | XMS_ITS | Encounter Summary ---
Author Organization [facility] [facility] Address [address] [place] [address] Care Team Providers Care Embedded Nurse Name Role Phone Bartolome Arriola MD Primary Care Provider Unavailable Encounter Details Date Type Department Care Team (Late st Contact Info) Description 03/30/2004 Outpatient Historical [facility] [address] 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
--- OUTSIDE RECORDS SUMMARY | 2025-05-16 01:13 | XMS_ITS | Encounter Summary ---
Author Organization [facility] Address 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
--- OUTSIDE RECORDS SUMMARY | 2025-05-16 01:13 | XMS_ITS | Encounter Summary ---
Author Organization [employer] Address 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
--- OUTSIDE RECORDS SUMMARY | 2025-05-16 01:13 | XMS_ITS | Encounter Summary ---
Author Organization [facility] Address 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
--- OUTSIDE RECORDS SUMMARY | 2025-05-16 01:13 | XMS_ITS | Encounter Summary ---
Author Organization [employer] Address [address] [place] [address] Care Team Providers Care Supervisor Shrimp Pond Name Role Phone Bartolome Arriola MD Primary Care Provider Unavailable Encounter Details Date Type Department Care Team (Late st Contact Info) Description 05/07/2000 Outpatient Historical [facility] Ar Zhang MD [address] [place] [address] Observation and evaluation for other specified suspected conditions (Primary Dx) Social History Tobacco Use Types Packs/Day Years Used Date Smoking Tobacco: Never Assessed Sex and Gender Information Value Date Recorded Sex Assigned at Male 06/26/2024 8:42 AM CDT 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
--- OUTSIDE RECORDS SUMMARY | 2025-05-16 01:13 | XMS_ITS | Continuity of Care Document ---
Author Organization [facility] Address [address] [facility] [address] [place] [address] Phone Care Team Providers Care Sample Display Preparer Name Role Phone Millicent Rosa OT Unavailable Unavailable Procedures Procedure Date Therapeutic Activities Hot or Cold Pack Manual Therapy Hot or Cold Pack Manual Therapy Therapeutic Exercise Therapeutic Activities Progress Note Therapeutic Activities Hot or Cold Pack Therapeutic Exercise Hot or Cold Pack Therapeutic Exercise Therapeutic Activities Therapeutic Activities Therapeutic Exercise Manual Therapy Hot or Cold Pack Therapeutic Activities Hot or Cold Pack Manual Therapy Therapeutic Exercise Therapeutic Activities Hot or Cold Pack Manual Therapy Therapeutic Exercise Hot or Cold Pack Manual Therapy Therapeutic Exercise Therapeutic Activities Hot or Cold Pack Manual Therapy Therapeutic Exercise Therapeutic Activities Therapeutic Exercise Therapeutic Activities Hot or Cold Pack Manual Therapy Neuromuscular Re-Ed Therapeutic Activities OT Evaluation Low Complexity Hot or Cold Pack Manual Therapy Advance Directives Directive Yes / No Effective Date File Name No Information Encounters Encounter Description Practice Location Reason(s) For Visit Diagnoses Date Provider Providers Copied on Encounter [facility] [facility] [address] [facility], [place], [place], [address], tel:[phone] [place] No Information 2 Shelley Millicent. . [facility], [place], [place], [address], tel:[phone] [place] No Information 2 Shelley Millicent. . Referring Provider: Noé Hlems [address], [place], [address]. tel:[phone] [facility] [address], [place], [place], [address], tel:[phone] [place] No Information 2 Shelley Millicent. . Referring Provider: Noé Helms [address], [place], [address]. tel:[phone] [facility] [address], [place], [place], [address], tel:[phone] [place] No Information 2 Shelley Millicent. . Referring Provider: Noé Helms [address], [place], [address]. tel:[phone] [facility] [address], [place], [place], [address], tel:[phone] [place] No Information 2 Shelley Millicent. . Referring Provider: Noé Helms [address], [place], [address]. tel:[phone] [facility], [address], [place], [place], [address], [place] tel:[phone] [place] No Information 2 Shelley Millicent. . Referring Provider: Noé Helms, [address], [place], [address]. tel:[phone] [facility], [address], [place], [place], [address], [place] tel:[phone] [place] No Information 2 Shelley Millicent. . Referring Provider: Noé Helms, [address], [place], [address]. tel:[phone] [facility], [address], [place], [place], [address], [place] tel:[phone] [place] No Information 2 Shelley Millicent. . Referring Provider: Noé Helms, [address], [place], [address]. tel:[phone] [facility] [address], [place], [place], [address], [place] tel:[phone] [place] No Information 2 Shelley Millicent. . Referring Provider: Noé Helms [address], [place], [address]. tel:[phone] [facility], [address], [place], [place], [address], [place] tel:[phone] [place] No Information 2 Shelley Millicent. . Referring Provider: Noé Helms, [address], [place], [address]. tel:[phone] [facility], [address], [place], [place], [address], [place] tel:[phone] [place] No Information 2 Shelley Ricks. . Referring Provider: Noé Helms, [address] [facility] [address], [place], [address]. tel:[phone] [facility], [address], [place], [place], [address], tel:[phone] [place] No Information 2 Shelley Ricks. . Referring Provider: Noé Helms, [address] [facility] [address], [place], [address]. tel:[phone] Family History Family Member Type Diagnosis Age At Onset No Information Payers Payer name Insurance type Covered republican ID Authorcolina jostin(s) Medicare [place] [id number] Aetna Senior Supplemental Insurance [facility] [id number] Social History Type Description Quantity Date Captured Comments Sex Male Smoking Status No Information Chief Complaint And Reason For Visit No Information Reason For Referral Reason For Referral No Information History Of Present Illness Encounter Date Complaint History Of Prese nt Illness No Information Functional Status Date Functional Assessmen t No Information Instructions Date Instruction Additional Infor mation Prescribed activity/exercise edu cation Related to Overweight Dietary needs education Related to Overweight Assessments Type Assessment Date No Information Patient Care Teams Name Effective Dates (start - stop) Status Members No Information
--- OUTSIDE RECORDS SUMMARY | 2025-05-16 01:13 | XMS_ITS | Encounter Summary ---
Author Organization [facility] Address 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
--- OUTSIDE RECORDS SUMMARY | 2025-05-16 01:13 | XMS_ITS | Encounter Summary ---
Author Organization [facility] Address 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
--- OUTSIDE RECORDS SUMMARY | 2025-05-16 01:13 | XMS_ITS | Clinical Summary ---
Author Organization [facility] Address [address] [address] Care Team Providers Care Restaurant Supervisor Name Role Phone Lenny Wise MD Primary Care Provider Allergies Active Allergy Reactions Criticality Noted Date Comments Amoxicillin-Pot Clavulanate Cat Dander Levonorgestrel-Ethinyl Estrad Shellfish Containing Products Medications amLODIPine (NORVASC) 10 mg tablet Take 1 tablet (10 mg total) by mouth daily 02/29/20 20 Active atorvastatin (LIPITOR) 40 mg tablet atorvastatin 40 mg tablet 02/28/20 20 Active cetirizine (ZyrTEC) 10 mg tablet Take 1 tablet (10 mg total) by mouth daily Active fluticasone propionate (FLONASE) 50 mcg/actuation nasal spray fluticasone propionate 50 mcg/actuation nasal spray,suspension 04/26/20 14 Active syringe with needle (BD Luer-Krystal Syringe) 3 mL 21 gauge x 1 syringe U SYRINGE FOR TESTOSTERINE INJECTION 05/03/20 19 Active testosterone cypionate (DEPO-TESTOTE DESTINEE) 200 mg/mL injection testosterone cypionate 200 mg/mL intramuscular oil Active tetanus-dipht heria toxoids (TDVAX) injection TDVAX 2 Lf unit-2 Lf unit/0.5 mL intramuscular suspension Active celecoxib (CeleBREX) 200 mg capsule Take 1 capsule (200 mg total) by mouth daily 04/27/20 25 Active furosemide (LASIX) 20 mg tabletIndicat ions:Bilatera l lower extremity edema Take 1 tablet (20 mg total) by mouth daily as needed (swelling) 30 tablet 1 05/03/20 25 Active etodolac (LODINE) 400 mg tablet TAKE 1 TABLET(400 MG) BY MOUTH TWICE DAILY 60 tablet 1 11/29/19 22 025 Discontinued Active Problems Problem Noted Date Diagnosed Date [...] Encounters Date Type Department Care Team Description 05/06/2025 Results Follow-Up [facility] Cardiology [address] [facility] [address] [place] [address] Mike Manning MD US Vein Duplex Lower Extremity Bilateral Complete 05/05/2025 9:00 AM CDT Ancillary Procedure [facility] Vascular and Vein Surgery at [address] [place] [address] Bilateral lower extremity edema 05/03/2025 9:15 AM CDT Office Visit [facility] Cardiology [address] [place] [address] [address] [place] [address] Mike Manning MD Essential hypertension (Primary Dx); Nonrheumatic aortic (valve) stenosis; Bilateral lower extremity edema; Pre-operative cardiovascular examination; PITT (dyspnea on exertion) from Last 3 Months Surgical History Surgery Date Site/Laterality Comments CHOLECYSTECTOMY 2017 JOINT REPLACEMENT 2014, 2016 CATARACT EXTRACTION 2023 Medical History Medical History Date Comments Hypertension Cataract 2023 Arthritis 2005 Family History Medical History Relation Name Comments Cancer Father Joanie Godoy Hypertension Mother Alexandra Godoy Cancer Sister Maribell Godoy Pasquale Relation Name Status Comments Father Joanie Godoy Mother Alexandra Godoy Sister Maribell Giordano Alive Social History Tobacco Use Types Packs/Day Years Used Date Smoking Tobacco: Never Smokeless Tobacco: Never Tobacco Cessation:Counseling Given: Not Answered Comments:54 years agp previous Sex and Gender Information Value Date Recorded Sex Assigned at Not on file 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:53 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 Gender Identity Male 08/29/2021 9:39 AM MAT WORKER Sexual Orientation Straight 08/29/2021 9: 39 AM MAT WORKER Obstetrics History Last Filed Vital Signs Vital Sign Reading Time Taken Comments Blood Pressure 114/66 05/03/2025 9:19 AM CDT Pulse 65 05/03/2025 9:19 AM CDT Temperature 36.5 C (97.7 F) 09/19/2021 4:46 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 Respiratory Rate 18 12/21/2024 11:05 AM MAT WORKER Oxygen Saturation 95% 05/03/2025 9:19 AM CDT Inhaled Oxygen Concentration - - Weight 97.5 kg (215 lb) 05/03/2025 9:19 AM CDT Height 185.4 cm (6' 1) 05/03/2025 9:19 AM CDT Body Mass Index 28.37 05/03/2025 9:19 AM CDT Plan of Treatment Health Maintenance Due Date [...] Additional history exists Zoster Vaccine Completed 04/30/2019, 04/0 05/2019, 04/04/2015, Additional history exists Procedures Procedure Name Priority Date/Time Associated Diagnosis Comments US VEIN DUPLEX LOWER EXTREMITY BILATERAL COMPLETE Schedule Routine, Read Routine (OP Routine) 05/05/2025 9:29 AM CDT Bilateral lower extremity edema from Last 3 Months Results * US Vein Duplex Lower Extremity Bilateral Complete (05/05/2025 9:29 AM CDT) Anatomical Region Laterality Modality Vascular Bilateral Ultrasound 05/05/2025 9:00 AM CDT Narrative 05/06/2025 11:16 AM CDT Vascular & Vein Surgery [address] [place] [address]. [place] [address] Lower Extremity Venous Report Patient Name: JOANIE GODOY D : 1945 (79y 9m) Gender: M Study Date: 05/05/2025 09:00:35 AM Director Of Operations For Therapy: MARYANA Location: [facility] Order Provider: MIKE MANNING Quality: Adequate Ref Provider: MIKE MANNING PROCEDURES: Vascular Report: A non-invasive vascular imaging study of the bilateral lower extremity veins was performed using B-mode ultrasound, color flow, and spectral Doppler. INDICATIONS: Chronic BLE edema. HISTORY: HTN. COMPARISONS: No change compared to prior study. The previous exam was completed on 03/03/[address] @ [facility]: negative. FINDINGS: Right: Negative for deep and superficial vein thrombosis in the right lower extremity. Normal compressibility and color filling, spontaneous and phasic flow, and response to distal augmentation is demonstrated in the right common femoral vein, saphenofemoral junction, proximal femoral vein, mid femoral vein, distal femoral vein, profunda vein, popliteal vein, posterior tibial veins, peroneal veins, gastrocnemius veins and soleal veins. Left: Negative for deep and superficial vein thrombosis in the left lower extremity. Normal compressibility and color filling, spontaneous and phasic flow, and response to distal augmentation is demonstrated in the left common femoral vein, saphenofemoral junction, proximal femoral vein, mid femoral vein, distal femoral vein, profunda vein, popliteal vein, posterior tibial veins, peroneal veins, gastrocnemius veins and soleal veins. CONCLUSIONS: 1. There is no evidence of deep vein thrombosis in the lower extremities bilaterally. ATTESTATION: I have reviewed and interpreted the pertinent images and measurements of this study. I attest to the conclusions in the final report that is provided above. Electronically Signed By: Rajesh Gramajo MD 05/06/2025 10:43:09 AM CDT Procedure Note Rajesh Gramajo MD - 05/06/2025 Vascular & Vein Surgery [address] [place] [address] Lower Extremity Venous Report Patient Name: JOANIE GODOY D : 1945 (79y 9m) Gender: M Study Date: 05/05/2025 09:00:35 AM Director Of Operations For Therapy: MARYANA Location: [facility] Order Provider: MIKE MANNING Quality: Adequate Ref Provider: MIKE MANNING PROCEDURES: Vascular Report: A non-invasive vascular imaging study of the bilaterallower extremity veins was performed using B-mode ultrasound, color flow, and spectralDoppler. INDICATIONS: Chronic BLE edema. HISTORY: HTN. COMPARISONS: No change compared to prior study. The previous exam was completed on03/03/[address] [facility]: negative. FINDINGS: Right: Negative for deep and superficial vein thrombosis in the rightlower extremity. Normal compressibility and color filling, spontaneous and phasic flow, andresponse to distal augmentation is demonstrated in the right common femoral vein,saphenofemoral junction, proximal femoral vein, mid femoral vein, distal femoral vein,profunda vein, popliteal vein, posterior tibial veins, peroneal veins, gastrocnemiusveins and soleal veins. Left: Negative for deep and superficial vein thrombosis in the left lowerextremity. Normal compressibility and color filling, spontaneous and phasic flow, andresponse to distal augmentation is demonstrated in the left common femoral vein,saphenofemoral junction, proximal femoral vein, mid femoral vein, distal femoral vein,profunda vein, popliteal vein, posterior tibial veins, peroneal veins, gastrocnemiusveins and soleal veins. CONCLUSIONS: 1. There is no evidence of deep vein thrombosis in the lower extremitiesbilaterally. ATTESTATION: I have reviewed and interpreted the pertinent images and measurements ofthis study. I attest to the conclusions in the final report that is provided above. Electronically Signed By: Rajesh Gramajo MD 05/06/2025 10:43:09 AM CDT Mike Manning MD [facility] US PROCEDURES Final R esult from Last 3 Months Insurance MEDICARE AET[employer] SENIOR SUPPLEMENT MEDICARE BLUE CROSS MEDICARE SUPPLEMENT MEDICARE AETNA SENIOR SUPPLEMENT Care Teams Restaurant Supervisor Relationship Specialty Start Date End Date Lenny Wise MD [facility] [facility] [facility] [address] [place] [address] PCP - General Family Practice 12/21/24
--- OUTSIDE RECORDS SUMMARY | 2025-05-16 01:13 | XMS_ITS | Referral Summary ---
Author Organization [facility] Address [address] [address] Care Team Providers Care Export Sales Manager Name Role Phone Lenny Wise MD Primary Care Provider Encounters Date Type Department Care Team Description 05/06/2025 Results Follow-Up [facility] Cardiology [address] [place] [address] [address] [place] [address] Mike Manning MD Vein Duplex Lower Extremity Bilateral Complete 05/05/2025 9:00 AM CDT Ancillary Procedure [facility] Vascular and Vein Surgery at [address] [place] [phone] Bilateral lower extremity edema 05/03/2025 9:15 AM CDT Office Visit [facility] Cardiology [address] [place] [address] [address] [place] [address] Mike Manning MD Essential hypertension (Primary Dx); Nonrheumatic aortic (valve) stenosis; Bilateral lower extremity edema; Pre-operative cardiovascular examination; PITT (dyspnea on exertion) from Last 3 Months Allergies Active Allergy [...] on file 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:53 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 Gender Identity Male 08/29/2021 9:39 AM FIELD SERVICE POULTRY TECHNICIAN Sexual Orientation Straight 08/29/2021 9: 39 AM FIELD SERVICE POULTRY TECHNICIAN Last Filed Vital Signs Vital Sign Reading Time Taken Comments Blood Pressure 114/66 05/03/2025 9:19 AM CDT Pulse 65 05/03/2025 9:19 AM CDT Temperature 36.5 C (97.7 F) 09/19/2021 4:46 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 Respiratory Rate 18 12/21/2024 11:05 AM FIELD SERVICE POULTRY TECHNICIAN Oxygen Saturation 95% 05/03/2025 9:19 AM CDT Inhaled Oxygen Concentration - - Weight 97.5 kg (215 lb) 05/03/2025 9:19 AM CDT Height 185.4 cm (6' 1) 05/03/2025 9:19 AM CDT Body Mass Index 28.37 05/03/2025 9:19 AM CDT Plan of Treatment Not on file Procedures [...] 11:16 AM CDT Vascular & Vein Surgery [address] [place] [address] Lower Extremity Venous Report Patient Name: JOANIE GODOYLucy : 1945 (79y 9m) Gender: M Study Date: 05/05/2025 09:00:35 AM Med Dir: MARYANA Location: [facility] Order Provider: MIKE MANNING Quality: Adequate Ref Provider: MIKE MANNING PROCEDURES: Vascular Report: A non-invasive vascular imaging study of the bilateral lower extremity veins was performed using B-mode ultrasound, color flow, and spectral Doppler. INDICATIONS: Chronic BLE edema. HISTORY: HTN. COMPARISONS: No change compared to prior study. The previous exam was completed on 03/03/15 @ [facility]: negative. FINDINGS: Right: Negative for deep and [...] MD - 05/06/2025 Vascular & Vein Surgery [address] [place] [address] Lower Extremity Venous Report Patient Name: JOANIE GODOYLucy : 1945 (79y 9m) Gender: M Study Date: 05/05/2025 09:00:35 AM Med Dir: MARYANA Location: [facility] Order Provider: MIKE MANNING Quality: Adequate Ref Provider: MIKE MANNING PROCEDURES: Vascular Report: A non-invasive vascular imaging study of the bilaterallower extremity veins was performed using B-mode ultrasound, color flow, and spectralDoppler. INDICATIONS: Chronic BLE edema. HISTORY: HTN. COMPARISONS: No change compared to prior study. [facility] FINDINGS: Right: Negative for deep and [...] 05/06/2025 10:43:09 AM CDT Mike Manning MD IMG US PROCEDURES Final R esult from Last 3 Months Insurance [facility] MEDICARE BLUE CROSS MEDICARE SUPPLEMENT MEDICARE AETNA SENIOR SUPPLEMENT Care Teams Export Sales Manager Relationship Specialty Start Date End Date Lenny Wise MD [address] [place] [address] PCP - General Family Practice 12/21/24
--- OUTSIDE RECORDS SUMMARY | 2025-05-16 01:13 | XMS_ITS | Encounter Summary ---
Author Organization [facility] Address [address] [place] [address] Care Team Providers Care Event Operations Manager Name Role Phone Bartolome Arriola MD [...] AM CDT Legal Sex Male 4:17 AM HOUSING CASE MANAGER Gender Identity Male 06/26/2024 8:42 AM [...] on filedocumented in this encounter Care Teams Event Operations Manager Relationship Specialty Start Date End Date Bartolome Arriola MD PCP - General Internal Medicine 08/17/20 documented as of this encounter
--- OUTSIDE RECORDS SUMMARY | 2025-05-16 01:13 | XMS_ITS | Encounter Summary ---
Author Organization [facility] Address 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
--- OUTSIDE RECORDS SUMMARY | 2025-05-16 01:13 | XMS_ITS | Encounter Summary ---
Author Organization [facility] Address 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
--- OUTSIDE RECORDS SUMMARY | 2025-05-16 01:13 | XMS_ITS | Encounter Summary ---
Author Organization [facility] Address 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
--- OUTSIDE RECORDS SUMMARY | 2025-05-16 01:13 | XMS_ITS | Encounter Summary ---
Author Organization [facility] Address [address] [place] [address] Care Team Providers Care No Experience Name Role Phone Lenny Wise MD Primary Care Provider Encounter Details Date Type Department Care Team (Late st Contact Info) Description 05/06/2025 Results Follow-Up [facility] Cardiology [address] [place] [address] Car Thomas MD [address] [facility] [address] [place], [place] [id number] US Vein Duplex Lower Extremity Bilateral Complete Social History Tobacco Use Types Packs/Day Years Used Date Smoking Tobacco: Never Smokeless Tobacco: Never Comments:55 years agp previo us Sex and Gender Information Value Date Recorded Sex Assigned at Not on file 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:53 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
[2025-05-16] MEDS: LACTATED RINGERS 1,000 ML 30 ML IV CONT ×2 (11:00→14:34)
[2025-05-16] MEDS: ACETAMINOPHEN 500 MG TABLET 1000 MG PO (11:10)
--- NOTE | 2025-05-16 11:31 | P.PNAN_ITS ---
Anes - Initial Pre Proc Eval Procedure: Operation Date: 05/16/25 12:00 Proposed Procedures p Right Custom Total Knee Arthroplasty - Dewey Chandler MD Date/Time: 05/16/25 11:31 Surgeon: Dewey Chandler MD Pre Op Diagnosis: prim oa rt knee Patient Data Age: 79 Gender: M Height: 1.83 m Weight: 99.6 kg Last Vital Signs Temp 36.7 C 04/29/25 13:46 Pulse 59 L 04/29/25 13:46 Resp 18 04/29/25 13:46 BP 124/64 04/29/25 13:46 Pulse Ox 97 04/29/25 13:46 O2 Del Method Room Air 04/29/25 13:46 Allergies Allergy/AdvReac Type Severity Reaction Status Date / Time Penicillins Allergy Mild Unknown Verified 04/29/25 14:52 amoxicillin Allergy Unknown SOB Verified 04/29/25 14:52 cat dander Allergy Unknown Unknown Verified 04/29/25 14:52 clavulanic acid Allergy Unknown SOB Verified 04/29/25 14:52 house dust Allergy Unknown Unknown Verified 04/29/25 14:52 pollen extracts Allergy Unknown Unknown Verified 04/29/25 14:52 shellfish derived Allergy Unknown Unknown Verified 04/29/25 14:52 ciprofloxacin AdvReac Joint Pain Verified 04/29/25 14:52 Home Medications ?Medication ?Instructions ?Recorded ?Confirmed ?Type cholecalciferol (vitamin D3) 125 125 mcg PO EVERY OTHER DAY 11/18/23 04/29/25 History mcg (5,000 unit) capsule levocetirizine 5 mg tablet 5 mg PO DAILY 11/18/23 04/29/25 History apmwslzn-jos-necxl acid 0.4 1 tablet PO DAILY 11/18/23 04/29/25 History mg-lycopene 300 mcg-lutein 250 mcg tablet (Centrum Silver) polyethylene glycol 3350 17 17 g PO DAILY 11/18/23 04/29/25 History gram/dose oral powder (Miralax) turmeric root extract 500 mg 500 mg PO DAILY 11/18/23 04/29/25 History capsule testosterone cypionate 200 mg/mL 100 mg IM WEEKLY 01/14/24 04/29/25 History intramuscular oil omeprazole 20 mg capsule,delayed 20 mg PO DAILY #30 caps 10/21/24 04/29/25 Rx release atorvastatin 40 mg tablet 40 mg PO QHS #90 tabs 03/01/25 04/29/25 Rx metoprolol succinate 25 mg 25 mg PO DAILY #90 tabs 03/28/25 04/29/25 Rx tablet,extended release 24 hr triamcinolone acetonide 0.1 % 1 applic topical TID PRN Eczema 04/18/25 04/29/25 Rx topical ointment #453.6 grams fluticasone propionate 50 2 spray intranasal BID 04/21/25 04/29/25 History mcg/actuation nasal spray,suspension celecoxib 200 mg capsule 200 mg PO DAILY #90 caps 04/27/25 04/29/25 Rx acetaminophen 500 mg tablet 1,000 mg PO Q6H PRN pain 04/29/25 04/29/25 History (Acetaminophen Pain Relief) amlodipine 10 mg tablet 10 mg PO HS 04/29/25 04/29/25 History Patient hx anesthesia problems: none Family hx anesthesia problems: none Results Review: All pre-operative results and documents have been reviewed as part of the pre- operative evaluation. [facility] Past Medical History Medical History Venous stasis dermatitis of both lower extremities Prediabetes Aortic stenosis, mild Gastritis (~05/2024) Hypogonadism in male Chronic eczematous otitis externa of left ear Allergic rhinitis Chronic venous insufficiency of lower extremity Vitamin D deficiency Osteoarthritis Hyperlipidemia Hypertension Surgical History Surgical History History of total left hip replacement (~2014) History of cataract surgery Left Eye ([facility]. Vel [facility], [facility]) 2023; Right Eye (Dr. Vel Chino, [facility]) 2023 History of right hip replacement (~2015) History of cholecystectomy (~2016) S/P trigger finger release b/l multiple - 2018 Hx of tonsillectomy (~1950) Family History Family History Other Cancer Family history non-contributory Social History Social History Smoking status: Former smoker Tobacco type: cigarettes and pipe Smoking end date: 12/18/76 Additional smoking assessment comments: DENIES ANY FORM OF TOBACCO USE Alcohol intake: current Drinks per week: 1 Alcohol use details: 2 per month Substance use: never Substance use type: does not use Do You Feel Safe in your Home?: Yes Lack of Transportation: No Lack of Food: Never True Current Housing: I Have Housing Concerned About Future Housing: No Difficulty Paying Gas/Electric Bills: No Difficulty Paying for Meds: No Currently Unemployed: No Education: Master's Degree or Higher Difficulty w/ Childcare or Family Care: No Living arrangements: with family Occupation/Education: retired Additional occupation/education comments: 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 [employer] Gender identity (if verbalized by the patient): Male Sexual Orientation (if Verbalized by the Patient): Straight or Heterosexual Spiritual care concerns: No Agree to blood products: Yes Anes - Eval Final PreProcedure Day of Procedure 05/16/25 11:31 Patient weight: overweight Heart: regular rate and rhythm Lungs: clear to auscultation Airway: Mallampati scale Neurological: alert and oriented Last oral intake: >/= 8 hours ASA classification: III Emergent: no Anesthetic plan: proceed Anesthesia type and monitoring: general LMA and standard monitoring Results Review: All pre-operative results and documents have been reviewed as part of the pre- operative evaluation. Informed Consent: The patient's anesthetic plan and its attendant risks and benefits were discussed with the patient/family/POA. Questions were solicited and answers provided to the satisfaction of the patient/family/POA.
--- NOTE | 2025-05-16 11:54 | WPDHPUPDATE1 ---
History and Physical Update Update Date/Time: 05/16/25 11:54 History and Physical has been reviewed, including an updated exam of the patient. There are NO changes in the patient's condition. Risks, benefits, and alternatives have been discussed and questions answered. Patient agrees to proceed with procedure.
[2025-05-16] MEDS: ceFAZolin 2 GM in SODIUM CHLORIDE 0.9% IV 50 ML 100 ML IVPB (12:11)
[2025-05-16] MEDS: TRANEXAMIC ACID 1,000MG/ISO100 1,000 MG/100 ML BAG 200 MG IVPB (12:27)
[2025-05-16] MEDS: SODIUM CHLORIDE 0.9% IV 37.7 ML, MORPHINE SULFATE INJ (*CRX) 2 MG, ROPivacaine HCL 1% 2... INFILTRATE (12:47)
[2025-05-16] MEDS: TRANEXAMIC ACID 1,000 MG/10 ML AMPUL 1000 MG IV PUSH (14:27)
[2025-05-16] MEDS: fentaNYL CITRATE INJ (*CRX) 100 MCG/2 ML VIAL 25 MCG IV PUSH ×6 (14:53→16:02)
--- NOTE | 2025-05-16 15:08 | P.OP_ITS ---
Procedure Note - Detailed Date of Procedure 05/16/25 Pre-op Diagnosis Right knee degenerative arthritis. Post-op Diagnosis Same Procedure Performed Custom total knee arthroplasty, right. Surgeon Dewey Chandler MD Anesthesia General Findings Valgus disease. Lateral capsule release and proximal IT band. Description of Procedure Preoperative antibiotics were given. The limb was prepped and draped in the usual sterile fashion with a well-padded tourniquet high on the thigh. The limb was exsanguinated and the tourniquet inflated to 300 mmHg during exposure and cementation. A longitudinal incision was created just medial to the patella. A trivector approach to the knee was performed. Arthrotomy was taken down through the joint capsule. No significant releases were initially taken. The femur was exposed and the F1 jig was applied. The coring tool was used to remove the cartilage for the F2 jig to sit flush with the bone. The jig was pinned and the distal cut carefully taken. Caliper measurements confirmed appropriate bony resections according to the preoperative templated plan. The F4 cutting jig for the femur was applied, at the standard rotation. The AP and anterior chamfer cuts were taken. The F5 jig was applied and the posterior chamfer cuts were taken. The tibia was prepared using the T1 jig, after removing cartilage for the jig contact points. Proper alignment was checked with the alignment xochitl. The tibia was cut using the T1u guide. Gap balancing was performed. Gap measurements were taken and the knee was trialed. Lateral capsule release and proximal IT band release were required. Excellent alignment and soft tissue balancing was confirmed. The posterior cruciate ligament was recessed along the proximal tibia. Meniscal remnants were removed. The trial components were assembled. Excellent range of motion and proper soft tissue balancing were confirmed throughout the full range of motion. Patellar tracking was excellent. The knee was copiously irrigated periodically throughout the procedure. The real imp lants were cemented into position. Excess cement was carefully removed. The wound was closed in layers with interrupted #1 Vicryl suture, 2-0 strata fix suture, 0 strata fix suture, 2-0 strata fix suture. Steri-Strips placed on the skin with the knee flexed. Sterile bulky dressing applied. The patient was brought to the recovery room in stable condition. There were no complications. Implants Conformis Custom total knee arthroplasty. Cemented. Cruciate retaining. 6A insert. Estimated Blood Loss 200 Drains No Complications No immediate complications Condition Stable Disposition PACU [facility] Billing Surgery - Charge Forward: Surgery Billing
--- NOTE | 2025-05-16 17:10 | ADMGEN ---
This patient, Herson Godoy, was admitted to Medical Room 255-01. Patient/family oriented to hospital policies and general routines including ID bracelet, bed and alarms, visiting hours, pain management, procedures, bathroom and other care routines, personal items, smoking policy, room service/diet, and visiting hours. Information on how to activate the Rapid Response Team has been discussed. Patient/Family are encouraged to report perceived risks to care and to ask questions if they do not understand what they are told or what they should do.
[2025-05-16] MEDS: ASPIRIN 81 MG ENTERIC TABLET PO (18:06)
[2025-05-16] MEDS: SENNA/DOCUSATE SODIUM TABLET 2 TAB PO (18:07)
[2025-05-16] MEDS: FLUTICASONE PROPIONATE 0.05% NA SPR 16 GM BTL (*BKC) 2 SPRAY NASAL (18:07)
[2025-05-16] MEDS: ATORVASTATIN 40 MG TABLET PO (21:00)
[2025-05-16] MEDS: ceFAZolin 2 GM/D5W 50 ML 2 GM/50 ML BAG IVPB (21:00)
[2025-05-16] MEDS: ACETAMINOPHEN 500 MG TABLET PO (21:12)
[2025-05-17 00:15] VITALS: BP 142/67; PULSE 73; RESP 20; TEMP 36.4; O2SAT 98
[2025-05-17] MEDS: ceFAZolin 2 GM/D5W 50 ML 2 GM/50 ML BAG IVPB ×2 (03:53→11:37)
[2025-05-17 03:55] VITALS: BP 146/64; PULSE 81; RESP 20; TEMP 36.5; O2SAT 95
[2025-05-17] MEDS: oxyCODONE/ACETAMINOPHEN (*CRX) 5-325 MG TABLET 1 TABLET PO ×2 (03:57→08:06)
[2025-05-17 05:22] LABS: Hematocrit 39.6 % (42.0-52.0); Hemoglobin 12.9 g/dL (14.0-18.0); Immature Granulocyte Percent A 0.5 % (0-0.5); Lymphocytes Absolute Auto 1.16 K/mm3 (0.9-3.2); Mean Corpuscular HGB Conc 32.6 g/dl (32-36); Mean Corpuscular Hemoglobin 30.5 pg (26-34); Mean Corpuscular Volume 93.6 fl (80-100); Nucleated Red Blood Cells Absolute Auto 0.000 K/mm3 (0.0-0.012); Nucleated Red Blood Cells Perc 0.0 % (0.0-0.2); Platelet Count Result 197 k/mm3 (150-375); Red Blood Count 4.23 M/mm3 (4.6-6.20); White Blood Count 16.0 K/mm3 (4.5-10.0)
[2025-05-17 05:45] LABS: Anion Gap 5 mmol/L (4-12); Blood Urea Nitrogen 27 mg/dL (9-20); Calcium 8.8 mg/dL (8.4-10.2); Carbon Dioxide 25 mmol/L (22-30); Chloride 107 mmol/L (98-107); Estimated CRCL calculation 69 ml/min; Estimated Glomerular Filt Rate > 60; Glucose 132 mg/dL (65-110); Potassium 4.3 mmol/L (3.4-5.0); Sodium 137 mmol/L (137-145)
[2025-05-17] MEDS: SENNA/DOCUSATE SODIUM TABLET 2 TAB PO (08:02)
[2025-05-17] MEDS: ASPIRIN 81 MG ENTERIC TABLET PO (08:02)
[2025-05-17] MEDS: LORATADINE 5 MG TABLET PO (08:03)
[2025-05-17] MEDS: CHOLECALCIFEROL (VITAMIN D3) 125 MCG (5,000 UNITS) TABLET PO (08:04)
[2025-05-17] MEDS: PANTOPRAZOLE 40 MG TABLET PO (08:04)
[2025-05-17] MEDS: MULTIVITAMINS /C LUTEIN (CENTRUM SILVER) TABLET *BKC 1 TAB PO (08:05)
[2025-05-17] MEDS: CELECOXIB 200 MG CAPSULE PO (08:06)
[2025-05-17] MEDS: FLUTICASONE PROPIONATE 0.05% NA SPR 16 GM BTL (*BKC) 2 SPRAY NASAL (08:08)
[2025-05-17 08:09] VITALS: PULSE 77
[2025-05-17] MEDS: METOPROLOL SUCCINATE EXT REL 25 MG TABCR PO (08:09)
[2025-05-17 08:10] VITALS: BP 138/55; PULSE 77; O2SAT 97
[2025-05-17 10:48] VITALS: BP 125/56; PULSE 63; O2SAT 98
== END 2025-05-17 12:40 | disposition home or self-care (01) ==
LOC: ANHSURGERY 10:00 → ANH2MED 17:20
PROVIDERS: PCP Family Medicine; Visit Provider Orthopaedic Surgery
PROC: (CPT 27447; principal; 2025-05-16 12:00)
DX: M17.11 Unilateral primary osteoarthritis, right knee (principal); I10 Essential (primary) hypertension; R73.03 Prediabetes; E55.9 Vitamin D deficiency, unspecified; E29.1 Testicular hypofunction; I35.0 Nonrheumatic aortic (valve) stenosis; Z79.1 Long term (current) use of non-steroidal anti-inflammatories (NSAID); Z98.890 Other specified postprocedural states; Z90.49 Acquired absence of other specified parts of digestive tract; Z87.891 Personal history of nicotine dependence; Z87.19 Personal history of other diseases of the digestive system; Z86.718 Personal history of other venous thrombosis and embolism; Z80.9 Family history of malignant neoplasm, unspecified
CPT/HCPCS: 27447; 36415; 73560; 80048; 85025; 86850; 86900; 86901; 97110; 97116; 97161; 97165; 97535; J0690; A9270; C1713; C1776; J0166; J1100; J1171; J1885; J2003; J2270; J2405; J2704; J2795; J3010; J7120; J7512

== ENCOUNTER 2025-08-10 12:36 | Outpatient (CLI) | payer MEDICARE, SELFPAY ==
[2025-08-10 15:53] LABS: Alanine Aminotransferase 21 U/L (6-50); Albumin Level 4.3 g/dL (3.5-5.1); Alkaline Phosphatase 104 U/L (38-126); Anion Gap 8 mmol/L (4-12); Aspartate Amino Transferase 50 U/L (17-59); Bilirubin,Total 1.7 mg/dL (0.2-1.3); Blood Urea Nitrogen 17 mg/dL (9-20); Calcium 9.3 mg/dL (8.4-10.2); Carbon Dioxide 30 mmol/L (22-30); Chloride 100 mmol/L (98-107); Cholesterol 132 mg/dL (0-200); Estimated Glomerular Filt Rate > 60; Glucose 90 mg/dL (65-110); HDL Direct 43 mg/dL; Potassium 4.4 mmol/L (3.4-5.0); Sodium 138 mmol/L (137-145); Total Protein 7.7 g/dL (6.3-8.2); Triglycerides 79 mg/dL (<150)
== END 2025-08-10 12:37 | disposition home or self-care (01) ==
LOC: ANHGOSHLAB 12:37
PROVIDERS: PCP Family Medicine; Visit Provider Family Medicine
DX: E78.5 Hyperlipidemia, unspecified (principal); I10 Essential (primary) hypertension
CPT/HCPCS: 36415; 80053; 80061

== ENCOUNTER 2025-10-17 08:47 | Outpatient (CLI) | payer MEDICARE, SELFPAY ==
--- OUTSIDE RECORDS SUMMARY | 2025-10-17 08:55 | XMS_ITS | Encounter Summary ---
Author Organization [facility] Address [address] [place] [address] Care Team Providers Care Home Theater Installer Name Role Phone Bartolome Arriola MD [...] AM CDT Legal Sex Male 4:17 AM ASSISTANT PARALEGAL Gender Identity Male 06/26/2024 8:42 AM CDT [...] filedocumented in this encounter Care Teams Home Theater Installer Relationship Specialty Start Date End Date Bartolome Arriola MD PCP - General Internal Medicine 08/17/20 documented as of this encounter
--- OUTSIDE RECORDS SUMMARY | 2025-10-17 08:55 | XMS_ITS | Encounter Summary ---
Author Organization [facility] Address [address] [place] [address] Care Team Providers Care Head Rigger Name Role Phone Bartolome Arriola MD Primary [...] AM CDT Legal Sex Male 4:17 AM VENDOR MANAGER Gender Identity Male 06/26/2024 8:42 AM [...] on filedocumented in this encounter Care Teams Head Rigger Relationship Specialty Start Date End Date Bartolome Arriola MD PCP - General Internal Medicine 08/17/20 documented as of this encounter
--- OUTSIDE RECORDS SUMMARY | 2025-10-17 08:55 | XMS_ITS | Encounter Summary ---
Author Organization [facility] Address [address] [place] [address] Care Team Providers Care Salon Supervisor Name Role Phone Bartolome Arriola MD Primary [...] AM CDT Legal Sex Male 4:17 AM SEEDLING SORTER Gender Identity Male 06/26/2024 8:42 AM CDT [...] on filedocumented in this encounter Care Teams Salon Supervisor Relationship Specialty Start Date End Date Bartolome Arriola MD PCP - General Internal Medicine 08/17/20 documented as of this encounter
--- OUTSIDE RECORDS SUMMARY | 2025-10-17 08:55 | XMS_ITS | Encounter Summary ---
Author Organization [facility] Address [address] [place] [address] Care Team Providers Care Fixing Machine Operator Name Role Phone Bartolome Arriola [...] AM CDT Legal Sex Male 4:17 AM FUR FINISHER SEAMSTRESS Gender Identity Male 06/26/2024 8:42 AM CDT [...] on filedocumented in this encounter Care Teams Fixing Machine Operator Relationship Specialty Start Date End Date Bartolome Arriola MD PCP - General Internal Medicine 08/17/20 documented as of this encounter
--- OUTSIDE RECORDS SUMMARY | 2025-10-17 08:55 | XMS_ITS | Encounter Summary ---
Author Organization [facility] Address [address] [place] [address] Care Team Providers Care Reimbursement Coordinator Name Role Phone Bartolome Arriola MD [...] AM CDT Legal Sex Male 4:17 AM SUPPLY CHAIN CONSULTANT Gender Identity Male 06/26/2024 8:42 AM [...] on filedocumented in this encounter Care Teams Reimbursement Coordinator Relationship Specialty Start Date End Date Bartolome Arriola MD PCP - General Internal Medicine 08/17/20 documented as of this encounter
--- OUTSIDE RECORDS SUMMARY | 2025-10-17 08:55 | XMS_ITS | Encounter Summary ---
[facility] Address [address] [place] [address] Care Team Providers Care Business Coordinator Name Role Phone Bartolome Arriola MD [...] AM CDT Legal Sex Male 4:17 AM DRUPAL WEB DEVELOPER Gender Identity Male 06/26/2024 8:42 AM CDT Sexual Orientation Straight 06/26/2024 8: 42 AM CDT documented as of this encounter Plan of Treatment Not on file documented as of this encounter Visit Diagnoses Diagnosis Hemorrhage of rectum and anus- Primary documented in this encounter Care Teams Business Coordinator Relationship Specialty Start Date End Date Bartolome Arriola MD PCP - General Internal Medicine 08/17/20 documented as of this encounter
--- OUTSIDE RECORDS SUMMARY | 2025-10-17 08:55 | XMS_ITS | Encounter Summary ---
Author Organization [facility] Address [address] [place] [address] Care Team Providers Care Gardening Instructor Name Role Phone Bartolome Arriola MD Primary [...] AM CDT Legal Sex Male 4:17 AM COLD PATCHER Gender Identity Male 06/26/2024 8:42 AM CDT [...] on filedocumented in this encounter Care Teams Gardening Instructor Relationship Specialty Start Date End Date Bartolome Arriola MD PCP - General Internal Medicine 08/17/20 documented as of this encounter
--- OUTSIDE RECORDS SUMMARY | 2025-10-17 08:55 | XMS_ITS | Encounter Summary ---
Author Organization [facility] Address [address] [place] [address] Care Team Providers Care Reconciliation Manager Name Role Phone Bartolome Arriola MD [...] AM CDT Legal Sex Male 4:17 AM RADIO REPAIRER Gender Identity Male 06/26/2024 8:42 AM [...] on filedocumented in this encounter Care Teams Reconciliation Manager Relationship Specialty Start Date End Date Bartolome Arriola MD PCP - General Internal Medicine 08/17/20 documented as of this encounter
--- OUTSIDE RECORDS SUMMARY | 2025-10-17 08:55 | XMS_ITS | Encounter Summary ---
Author Organization [facility] Address [address] [place] [address] Care Team Providers Care Traveling Accountant Name Role Phone Bartolome Arriola MD Primary [...] AM CDT Legal Sex Male 4:17 AM OEM SALES MANAGER Gender Identity Male 06/26/2024 8:42 AM [...] on filedocumented in this encounter Care Teams Traveling Accountant Relationship Specialty Start Date End Date Bartolome Arriola MD PCP - General Internal Medicine 08/17/20 documented as of this encounter
--- OUTSIDE RECORDS SUMMARY | 2025-10-17 08:55 | XMS_ITS | Encounter Summary ---
Author Organization [facility] Address [address] [place] [address] Care Team Providers Care Business Liaison Manager Name Role Phone Bartolome Arriola MD [...] AM CDT Legal Sex Male 4:17 AM DEVELOPMENT OFFICER Gender Identity Male 06/26/2024 8:42 [...] filedocumented in this encounter Care Teams Business Liaison Manager Relationship Specialty Start Date End Date Bartolome Arriola MD PCP - General Internal Medicine 08/17/20 documented as of this encounter
--- OUTSIDE RECORDS SUMMARY | 2025-10-17 08:55 | XMS_ITS | Encounter Summary ---
Author Organization [facility] Address [address] [place] [address] Care Team Providers Care Transplanter Name Role Phone Bartolome Arriola MD Primary [...] AM CDT Legal Sex Male 4:17 AM AUTO LEASING MANAGER Gender Identity Male 06/26/2024 8:42 AM [...] on filedocumented in this encounter Care Teams Transplanter Relationship Specialty Start Date End Date Bartolome Arriola MD PCP - General Internal Medicine 08/17/20 documented as of this encounter
--- OUTSIDE RECORDS SUMMARY | 2025-10-17 08:55 | XMS_ITS | Encounter Summary ---
Author Organization [facility] Address [address] [place] [address] Care Team Providers Care Scrub Technician Name Role Phone Bartolome Arriola MD [...] CDT Legal Sex Male 4:17 AM FLOOR LAYER TILE Gender Identity Male 06/26/2024 8:42 AM CDT [...] on filedocumented in this encounter Care Teams Scrub Technician Relationship Specialty Start Date End Date Bartolome Arriola MD PCP - General Internal Medicine 08/17/20 documented as of this encounter
--- OUTSIDE RECORDS SUMMARY | 2025-10-17 08:55 | XMS_ITS | Encounter Summary ---
Author Organization [facility] Address [address] [place] [address] Care Team Providers Care Flare Stitcher Name Role Phone Bartolome Arriola MD Primary [...] CDT Legal Sex Male 4:17 AM SECURITY ANALYST Gender Identity Male 06/26/2024 8:42 AM [...] on filedocumented in this encounter Care Teams Flare Stitcher Relationship Specialty Start Date End Date Bartolome Arriola MD PCP - General Internal Medicine 08/17/20 documented as of this encounter
--- OUTSIDE RECORDS SUMMARY | 2025-10-17 08:55 | XMS_ITS | Encounter Summary ---
Author Organization [facility] Address [address] [place] [address] Care Team Providers Care Production Sorter Name Role Phone Bartolome Arriola MD Primary Care Provider Unavailable Encounter Details Date Type Department Care Team (Late st Contact Info) Description 03/30/2004 Outpatient Historical [facility] Support Serv. (Adt Cardiology[facility]) [address] [place] [id number] Emory Ellsworth MD NO ADDRESS ON FILE Social History Tobacco Use Types Packs/Day Years Used Date Smoking Tobacco: Never Assessed Sex and Gender Information Value Date Recorded Sex Assigned at Male 06/26/2024 8:42 AM CDT Legal Sex Male 4:17 AM HUMAN RESOURCES RECORDS CLERK Gender Identity Male 06/26/2024 8:42 AM CDT Sexual Orientation Straight 06/26/2024 8: 42 AM CDT documented as of this encounter Plan of Treatment Not on file documented as of this encounter Visit Diagnoses Not on filedocumented in this encounter Care Teams Production Sorter Relationship Specialty Start Date End Date Bartolome Arriola MD PCP - General Internal Medicine 08/17/20 documented as of this encounter
--- OUTSIDE RECORDS SUMMARY | 2025-10-17 08:55 | XMS_ITS | Clinical Summary ---
Author Organization [facility] Address [address] [place] [address] Phone Care Team Providers Care Plastic Surgery Coordinator Name Role Phone Bartolome Arriola MD [...] Containing Products Shortness of Breath/Wheezing High 01/19/2013 [place] Pollen-Short Ragweed Unknown 03/20/1970 Medications polyethylene glycol [...] 2 Active fluticasone propionate (FLONASE) 50 mcg/spray [place], Suspension nasal inhaler Active CALCIUM CARBONATE-JUVENAL MIN D3 ORAL Take by mouth daily. Active UIVVTHG-HAPH-T APSO-[id number]-WWML YL ORAL Take by mouth daily. Active [...] History of acute pancreatitis 06/12/2019 Overview (06/12/2019): 2017 Prediabetes 06/18/2018 Primary osteoarthritis of both knees [...] Encounters Date Type Department Care Team Description 09/20/2025 External Device Data [facility] ABSTRACTION Provider, Abstract 09/20/2025 External Device Data [facility] ABSTRACTION Provider, Abstract 08/17/2025 External Device Data [facility] ABSTRACTION Provider, Abstract 08/16/2025 External Device Data [facility] ABSTRACTION Provider, Abstract 08/10/2025 External Device Data [facility] ABSTRACTION Provider, Abstract 08/09/2025 External Device Data [facility] ABSTRACTION Provider, Abstract from Last 3 Months Immunizations Immunization Administration Dates Next Due (ADACEL/BOOSTRIX)(10 YR UP) TDAP VACCINE, 0.5ML, IM 07/15/2019,11/20/2008 (PFIZER)(12 YR UP) COVID-19 VACCINE - EMERGENCY USE AUTHORIZATION, MRNA, [id number](PF) 30 MCG/0.3 ML IM SUSP 12/22/2021,07/18/2021,12/22/2020,11/24 (PNEUMOVAX [...] AM CDT Legal Sex Male 4:17 AM FRONT OFFICE SPECIALIST Gender Identity Male 06/26/2024 8:42 AM CDT Sexual Orientation Straight 06/26/2024 8: 42 AM CDT Last Filed Vital Signs Vital Sign Reading Time Taken Comments Blood Pressure 138/78 10/30/2023 7:19 AM FRONT OFFICE SPECIALIST Pulse 87 10/30/2023 7:19 AM FRONT OFFICE SPECIALIST Temperature 36.3 C (97.4 F) 10/30/2023 7:19 AM FRONT OFFICE SPECIALIST Respiratory Rate 17 10/06/2023 10:55 AM FRONT OFFICE SPECIALIST Oxygen Saturation 95% 10/30/2023 7:19 AM FRONT OFFICE SPECIALIST Inhaled Oxygen Concentration - - Weight 98 kg (216 lb) 10/30/2023 7:19 AM FRONT OFFICE SPECIALIST Height 185.4 cm (6' 1) 10/30/2023 7:19 AM FRONT OFFICE SPECIALIST Body Mass Index 28.5 10/30/2023 7:19 AM FRONT OFFICE SPECIALIST Plan of Treatment Health Maintenance Due Date Last Done Comments RSV VACCINE (60+ or ) (1 - 1-dose 75+ series) 2021 INFLUENZA VACCINE (#1) 2025 , 07/24/2022, 06/26/2021, Additional history exists COVID-19 Vaccine (2024-2 6 season) 2025 06/28/2022, 12/22/2021, 07/18/2021, Additional history exists COLORECTAL SCREENING 10/06/2028 10/06/2023, 10/06/2023, 07/19/2020, Additional history exists DTAP/TDAP/TD VACCINES (4 - T d or Tdap) 07/15/2029 07/15/2019, 07/15/2019, 11/20/2008, Additional history exists PNEUMOCOCCAL VACCINE 50+ YEARS Completed 1 10/24/2014, 06/12/2015, 04/04/2015, Additional history exists ZOSTER VACCINE Completed 04/30/2019, 04/0 04/2019, 04/04/2015, Additional history exists Medical Devices Implanted Type Area Fact Checker Device Identifier Shelf Expiration Date Model / Serial / Lot [employer] Dental Procedures Procedure Name Priority Date/Time Associated Diagnosis Comments COLONOSCOPY REPORT 10/06/2023 10 :42 AM FRONT OFFICE SPECIALIST from Last 3 Months or Most Recently Relevant to Health Maintenance Results * COLONOSCOPY REPORT (10/06/2023 10:42 AM FRONT OFFICE SPECIALIST) Narrative Procedure Note Cordell Gonzalez MD - 10/06/2023 10:42 AM CST [facility] Endoscopy Patient Name: Herson Godoy Procedure Date: [...] electronically. Number of Addenda: [address]; [place] [address] Cordell Gonzalez MD GI PROCEDURE ORDERABLES Final Re sult from Last 3 Months or Most Recently Relevant to Health Maintenance Insurance MEDICARE PART A AND B AETNA MEDICARE SUPP AESSI RX [employer] Medicare Part D Advance Directives For more information, please contact: [phone] * Full Code (Latest Code Status on [...] 6:58 AM 09/22/2017 8:03 AM Care Teams Plastic Surgery Coordinator Relationship Specialty Start Date End Date Bartolome Arriola MD PCP - General Internal Medicine 08/17/20
--- OUTSIDE RECORDS SUMMARY | 2025-10-17 08:55 | XMS_ITS | Clinical Summary ---
Author Organization [facility] Address [address] [address] Care Team Providers Care Transit Authority Police Officer Name Role Phone Lenny Wise MD Primary Care Provider Allergies Active Allergy Reactions Criticality Noted Date Comments Amoxicillin-Pot Clavulanate Cat Dander Levonorgestrel-Ethinyl Estrad Shellfish Containing Products Medications amLODIPine (NORVASC) 10 mg tablet Take 1 tablet (10 mg total) by mouth daily 0 Active atorvastatin (LIPITOR) 40 mg tablet [...] capsule (200 mg total) by mouth daily 5 Active furosemide (LASIX) 20 mg tabletIndicati ons:Bilateral lower extremity edema TAKE 1 TABLET(20 MG) BY MOUTH DAILY NEEDED FOR SWELLING 30 tablet 3 Active Active Problems Problem Noted Date Diagnosed [...] artificial joint 03/06/2017 Osteoarthritis of hip 07/03/2016 Surgical History Surgery Date Site/Laterality Comments CHOLECYSTECTOMY 2017 JOINT REPLACEMENT 2014, 2015 CATARACT EXTRACTION 2023 Medical History Medical History Date Comments Hypertension Cataract 2023 Arthritis 2005 Family History Medical History Relation Name Comments Cancer Father Herson Godoy Hypertension Mother Alexandra Godoy Cancer Sister Maribell Giordano Relation Name Status Comments Father Herson Godoy Mother Alexandra Godoy Sister Maribell Giordano Alive Social History Tobacco Use Types Packs/Day Years Used Date Smoking Tobacco: Never Smokeless Tobacco: Never Tobacco Cessation:Counseling Given: Not Answered Comments:55 years agp previous Sex and Gender Information Value Date Recorded Sex Assigned at Not on file 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:53 PM FUR BLOWING MACHINE OPERATOR Gender Identity Male 08/29/2021 9:39 AM FUR BLOWING MACHINE OPERATOR Sexual Orientation Straight 08/29/2021 9: 39 AM FUR BLOWING MACHINE OPERATOR Last Filed Vital Signs Vital Sign Reading Time Taken Comments Blood Pressure 114/66 05/03/2025 9:19 AM CDT Pulse 65 05/03/2025 9:19 AM CDT Temperature 36.5 C (97.7 F) 09/19/2021 4:46 PM FUR BLOWING MACHINE OPERATOR Respiratory Rate 18 12/21/2024 11:05 AM FUR BLOWING MACHINE OPERATOR Oxygen Saturation 95% 05/03/2025 9:19 AM CDT [...] 0405/2019, 04/04/2015, Additional history exists Insurance MEDICARE AETNA SENIOR SUPPLEMENT MEDICARE BLUE CROSS MEDICARE SUPPLEMENT MEDICARE AETNA SENIOR SUPPLEMENT Care Teams Transit Authority Police Officer Relationship Specialty Start Date End Date Lenny Wise MD [address] [facility] [address] [place] [address] [place] [address] PCP - General Family Practice 12/21/24
--- OUTSIDE RECORDS SUMMARY | 2025-10-17 08:55 | XMS_ITS | Encounter Summary ---
Author Organization [facility] Address [address] [place] [address] Care Team Providers Care Cemetery Worker Name Role Phone Bartolome Arriola MD [...] AM CDT Legal Sex Male 4:17 AM PLC ENGINEER Gender Identity Male 06/26/2024 8:42 AM CDT [...] on filedocumented in this encounter Care Teams Cemetery Worker Relationship Specialty Start Date End Date Bartolome Arriola MD PCP - General Internal Medicine 08/17/20 documented as of this encounter
--- OUTSIDE RECORDS SUMMARY | 2025-10-17 08:55 | XMS_ITS | Encounter Summary ---
Author Organization [facility] Address [address] [place] [address] Care Team Providers Care Body Work Auto Trimmer Name Role Phone Bartolome Arriola MD [...] AM CDT Legal Sex Male 4:17 AM BAND REAMER MACHINE OPERATOR Gender Identity Male 06/26/2024 8:42 [...] on filedocumented in this encounter Care Teams Body Work Auto Trimmer Relationship Specialty Start Date End Date Bartolome Arriola MD PCP - General Internal Medicine 08/17/20 documented as of this encounter
--- OUTSIDE RECORDS SUMMARY | 2025-10-17 08:55 | XMS_ITS | Data Portability ---
Author Organization [employer], FORMERLY [facility] Address [address] [place] [id number] Care Team Providers Care Senior Tax Manager Name Role Phone TEJAS SOLIS Primary Care [...] treatment decision. [email or web address] Not available 03/17/2019 11:16:13 05/30/2025 05/30/2025 Recommend patient resume testosterone and recheck labs in one month. Will follow up when labs are complete to determine if dose adjustment is required. He is agreeable to this plan. All questions answered. Return to clinic for worsening symptoms. The patient case and treatment plan were discussed with Dr. Bowen. Greater than 20 minutes was spent with the patient in direct evaluation and subsequent care planning. [email or web address] Not available 06/05/2025 18:46:39 Plan of Treatment Reminders Order Date Submit Date Provider Last Modified By Organization Details Last Modified Time Details Appointments None recorded. Lab PSA, serum or plasma - Non-fastin g 2018 019 NITINTek[facility], [address], [address], [place], [address], 9 01:05:07 vitamin D, 25-hydroxy , total, serum - Non-fastin g 2018 019 [facility], [address], [address], [place], [address], 9 01:05:07 testostero ne, free, serum - Non-fastin g 2018 019 [facility], [address], [address], [place], [address], 9 01:05:07 testostero ne, total, serum - Non-fastin g 2018 019 [facility], [address], [address], [place], [address], 9 01:05:06 CBC w/ auto diff - Non-fastin g 2018 019 [facility], [address], [address], [place], [address], 9 01:05:06 Referral None recorded. Procedures None recorded. Surgeries None recorded. Imaging XR, knee - Pt in lobby, please return him to the lobby after his xray and I'll grab him when my room is available 2019 020 [email or web address] Not available 0 14:02:00 XR, elbow - room 6 2018 019 Not available 9 11:24:33 Medication Orders None recorded. Patient TargetsNo targets recorded. Patient Instructions Encounter Date Encounter Id Patient Instructions Last Modified By Organization Details Last Modified Time 07/02/2018 [id number] knee arthritis: care instructions Not available 07/02/2018 09:44:27 Reason for Referral None Reported. Results Created Date Observation Date Name Description Value Unit Range Abnormal Flag Note LastModifiedBy Organization Detail LastModifiedTime 03/17/20 19 03/21/2019 CBC w/ auto diff white blood cell count 7.2 thous and/u L 3.8-10 .8 normal Not Available [address], [address], 03/21/2019 01:05:06 03/17/20 19 03/21/2019 CBC w/ auto diff red blood cell count 4.02 kiesha on/uL 4.20-5 .80 low Not Available [address], [address], 03/21/2019 01:05:06 03/17/20 19 03/21/2019 CBC w/ auto diff hemoglobin 12.3 g/dL 13.2-1 7.1 low Not Available [address], [address], 03/21/2019 01:05:06 03/17/20 19 03/21/2019 CBC w/ auto diff hematocrit 37.4 % 38.5-5 0.0 low Not Available [address], [address], 03/21/2019 01:05:06 03/17/20 19 03/21/2019 CBC w/ auto diff MCV 93.0 fL 80.0-1 00.0 normal Not Available [address], [address], 03/21/2019 01:05:06 03/17/20 19 03/21/2019 CBC w/ auto diff MCH 30.6 pg 27.0-3 3.0 normal Not Available [address], [address], 03/21/2019 01:05:06 03/17/20 19 03/21/2019 CBC w/ auto diff MCHC 32.9 g/dL 32.0-3 6.0 normal Not Available [address], [address], 03/21/2019 01:05:06 03/17/20 19 03/21/2019 CBC w/ auto diff RDW 12.7 % 11.0-1 5.0 normal Not Available [address], [address], 03/21/2019 01:05:06 03/17/20 19 03/21/2019 CBC w/ auto diff platelet count 275 thous and/u L 140-40 0 normal Not Available [address], [address], 03/21/2019 01:05:06 03/17/20 19 03/21/2019 CBC w/ auto diff MPV 11.1 fL 7.5-12 .5 normal Not Available [address], [address], 03/21/2019 01:05:06 03/17/20 19 03/21/2019 CBC w/ auto diff absolute neutrophils 4522 cells /uL 1500-7 800 normal Not Available [address], [address], 03/21/2019 01:05:06 03/17/20 19 03/21/2019 CBC w/ auto diff absolute lymphocytes 1757 cells /uL 850-39 00 normal Not Available [address], [address], 03/21/2019 01:05:06 03/17/20 19 03/21/2019 CBC w/ auto diff absolute monocytes 734 cells /uL 200-95 0 normal Not Available [address], [address], 03/21/2019 01:05:06 03/17/20 19 03/21/2019 CBC w/ auto diff absolute eosinophils 158 cells /uL 15-500 normal Not Available [address], [address], 03/21/2019 01:05:06 03/17/20 19 03/21/2019 CBC w/ auto diff absolute basophils 29 cells /uL 0-200 normal Not Available [address], [address], 03/21/2019 01:05:06 03/17/2003/21/2019 CBC w/ auto diff neutrophils 62.8 % normal Not Available [address], [address], 03/21/2019 01:05:06 03/17/2003/21/2019 CBC w/ auto diff lymphocytes 24.4 % normal Not Available [address], [address], 03/21/2019 01:05:06 03/17/2003/21/2019 CBC w/ auto diff monocytes 10.2 % normal Not Available [address], [address], 03/21/2019 01:05:06 03/17/2003/21/2019 CBC w/ auto diff eosinophils 2.2 % normal Not Available [address], [address], 03/21/2019 01:05:06 03/17/2003/21/2019 CBC w/ auto diff basophils 0.4 % normal Not Available [address], [address], 03/21/2019 01:05:06 03/17/2003/21/2019 testo stero ne, total [...] op tube with no gel. Not Available [address], [address], 03/21/2019 01:05:06 03/17/20 19 03/21/2019 PSA, serum or plasm a PSA, total 0.5 NG/mL < or = 4.0 normal The total PSA value from this assay syste m is stand ardiz ed again st the WHO stand marcelino. The test resul t will be appro ximat kodi 20% lower when kathy red to the equim olar- stand ardiz ed total PSA (Gudino man Coult er). Kathy rison of seria l PSA resul ts shoul d be inter prete d with this fact in mind. This test was perfo rmed using the [employer] chemi lumin escen t metho d. Value s obtai sami from diffe rent assay metho ds canno t be used inter sharpe eably . PSA level s, regar dless of value , shoul d not be inter prete d as absol seneca-cayuga evide nce of the prese nce or absen ce of disea se. Not Available [employer] [facility] [address] [place], [address], 03/21/2019 01:05:06 03/17/20 19 03/21/2019 vitam in D, 25-hy droxy , total [...] /MS is recom rupali d: order code 02291 (primitivo ents >2yrs ). For more infor asa garcia on this test, go to: http: //radha roberson gnost ics.c om/fa q/FAQ 163 (This link is being provi ded for infor matio nal/e ducat ional purpo ses only. ) Not Available [employer] [address] [place], [address], 03/21/2019 01:05:07 03/17/20 19 03/21/2019 testo stero ne, free, serum testosterone , free 4.3 pg/mL 6.0-73 .0 low This test was devjos wheeler and its marjan tical perfo rmanc e jean cteri stics have been deter mined by [facility] [employer] [facility]. It has not been clear ed or appro brittany by the US Food and Drug Admin istra tion. This assay has been valid ated pursu ant to the CLIA regul ation s and is used for clini tristan purpo ses. Not Available [employer] [address] [place], [address], 03/21/2019 01:05:07 06/05/20 19 06/09/2019 CBC w/ auto diff white blood cell count 7.8 thous and/u L 3.8-10 .8 normal Not Available [facility] [address] [place], [address], 06/09/2019 17:08:21 06/05/20 19 06/09/2019 CBC w/ auto diff red blood cell count 5.06 kiesha on/uL 4.20-5 .80 normal Not Available [facility] [address], [address], 06/09/2019 17:08:21 06/05/20 19 06/09/2019 CBC w/ auto diff hemoglobin 15.3 g/dL 13.2-1 7.1 normal Not Available [facility] [address], [address], 06/09/2019 17:08:21 06/05/20 19 06/09/2019 CBC w/ auto diff hematocrit 46.9 % 38.5-5 0.0 normal Not Available [employer] [address], [address], 06/09/2019 17:08:21 06/05/20 19 06/09/2019 CBC w/ auto diff MCV 92.7 fL 80.0-1 00.0 normal Not Available [address], [address], 06/09/2019 17:08:21 06/05/20 19 06/09/2019 CBC w/ auto diff MCH 30.2 pg 27.0-3 3.0 normal Not Available [address], [address], 06/09/2019 17:08:21 06/05/20 19 06/09/2019 CBC w/ auto diff MCHC 32.6 g/dL 32.0-3 6.0 normal Not Available [address], [address], 06/09/2019 17:08:21 06/05/20 19 06/09/2019 CBC w/ auto diff RDW 12.7 % 11.0-1 5.0 normal Not Available [address], [address], 06/09/2019 17:08:21 06/05/20 19 06/09/2019 CBC w/ auto diff platelet count 319 thous and/u L 140-40 0 normal Not Available [address], [address], 06/09/2019 17:08:21 06/05/20 19 06/09/2019 CBC w/ auto diff MPV 10.4 fL 7.5-12 .5 normal Not Available [address], [address], 06/09/2019 17:08:21 06/05/20 19 06/09/2019 CBC w/ auto diff absolute neutrophils 4859 cells /uL 1500-7 800 normal Not Available [address], [address], 06/09/2019 17:08:21 06/05/20 19 06/09/2019 CBC w/ auto diff absolute lymphocytes 1716 cells /uL 850-39 00 normal Not Available [address] [place], [address], 06/09/2019 17:08:21 06/05/20 19 06/09/2019 CBC w/ auto diff absolute monocytes 1084 cells /uL 200-95 0 high Not Available [address] [place], [address], 06/09/2019 17:08:21 06/05/20 19 06/09/2019 CBC w/ auto diff absolute eosinophils 101 cells /uL 15-500 normal Not Available [address], [address], 06/09/2019 17:08:21 06/05/20 19 06/09/2019 CBC w/ auto diff absolute basophils 39 cells /uL 0-200 normal Not Available [address], [address], 06/09/2019 17:08:21 06/05/20 19 06/09/2019 CBC w/ auto diff neutrophils 62.3 % normal Not Available [address], [address], 06/09/2019 17:08:21 06/05/20 19 06/09/2019 CBC w/ auto diff lymphocytes 22.0 % normal Not Available [address] [place], [address], 06/09/2019 17:08:21 06/05/20 19 06/09/2019 CBC w/ auto diff monocytes 13.9 % normal Not Available [address] [place], [address], 06/09/2019 17:08:21 06/05/20 19 06/09/2019 CBC w/ auto diff eosinophils 1.3 % normal Not Available [facility] [address] [address] [place], [address], 06/09/2019 17:08:21 06/05/20 19 06/09/2019 CBC w/ auto diff basophils 0.5 % normal Not Available [facility] [address] [address] [place], [address], 06/09/2019 17:08:21 06/05/20 19 06/09/2019 vitam in [...] /MS is recom rupali d: order code 66753 (primitivo ents >2yrs ). For more hananer asa garcia on this test, go to: http: //radha millan stdia gnost ics.c om/fa q/FAQ 163 (This link is being provi ded for infor asa nal/e ducat ional purpo ses only. ) Not Available [facility] [address], [place], [address], 06/09/2019 17:08:22 06/05/20 19 06/09/2019 testo stero [...] its couns eling . For addit ional hananer ellen bolivar e refer to http: //[facility] marcie garcia.que stdia gnost ics.c om/fa q/FAQ 165 (This link is being provi ded for laxmi santizo/ educa carlos l purpo ses only. ) This test was devel oped and its marjan tical perfo rmanc e jean cteri stics have been deter mined by [facility] [employer] mer[employer]. It has not been clear ed or appro brittany by the US Food and Drug Admin istra tion. This assay has been valid ated pursu ant to the CLIA regul ation s and is used for clini tristan purpo ses. Not Available [employer] [address] [address] [place], [address], 06/09/2019 17:08:22 06/05/20 19 06/09/2019 testo stero ne, free, serum testosterone , free 214.6 pg/mL 6.0-73 .0 high This test was devel oped and its marjan tical perfo rmanc e jean cteri stics have been deter mined by [facility] [employer] mer[employer]. It has not been clear ed or appro brittany by the US Food and Drug Admin istra tion. This assay has been valid ated pursu ant to the CLIA regul ation s and is used for clini tristan purpo ses. Not Available [facility] [address] [place], [address], 06/09/2019 17:08:23 09/21/20 09/24/2019 testo stero ne, free, serum testosterone , free 352.8 pg/mL 6.0-73 .0 high This test was jr wheeler and its marjan tical perfo rmanc e jean cteri stics have been deter mined by [facility]. It has not been clear ed or appro brittany by the FDA. This assay has been valid ated pursu ant to the CLIA regul ation s and is used for clini tristan purpo ses. Not Available [employer] [address] [address] [place], [address], 09/24/2019 18:34:58 09/21/2009/24/2019 hemog lobin + hemat ocrit , blood hemoglobin 15.9 g/dL 13.2-1 7.1 normal Not Available [employer] [facility] [address] [place], [address], 09/24/2019 18:34:59 09/21/2009/24/2019 hemog lobin + hemat ocrit , blood hematocrit 49.3 % 38.5-5 0.0 normal Not Available [employer] [facility] [address] [address] [place], [address], 09/24/2019 18:34:59 09/21/2009/24/2019 vitam in D, 25-hy [...] /MS is recom rupali d: order code 48630 (primitivo ents >2yrs ). For more infor asa garcia on this test, go to: http: //[employer] [facility] [facility].que stdia gnost ics.c om/fa q/FAQ 163 (This link is being provi ded for infor matio nal/e ducat ional purpo ses only. ) Not Available [employer] [facility] [address] [place], [address], 09/24/2019 18:34:59 09/21/2009/24/2019 testo stero ne, total [...] couns eling . For addit ional infor matio nellen e refer to http: //[facility].que stdia gnost ics.c om/fa q/Tot al Testo stero neLCM SMS (This link is being provi ded for infor matio nal/e ducat ional purpo ses only. ) This test was devel oped and its marjan tical perfo rmanc e jean cteri stics have been deter mined by [facility]. It has not been clear ed or appro brittany by the FDA. This assay has been valid ated pursu ant to the CLIA regul ation s and is used for clini tristan purpo ses. Not Available [employer] [facility] [address] [place], [address], 09/24/2019 18:34:59 11/20/19 21 11/23/2020 testo stero ne, free, serum testosterone , free 71.8 pg/mL 6.0-73 .0 This test was devel oped and its marjan tical perfo rmanc e jean cteri stics have been deter mined by [facility]. It has not been clear ed or appro brittany by the FDA. This assay has been valid ated pursu ant to the CLIA regul ation s and is used for clini tristan purpo ses. Not Available [employer] [facility] [address] [place], [address], 11/23/2020 20:19:26 11/20/19 21 11/23/2020 PSA, serum or plasm a PSA, total 1.2 NG/mL < or = 4.0 normal The total PSA value from this assay syste m is stand ardiz ed again st the WHO stand marcelino. The test resul t will be appro ximat kodi 20% lower when kathy red to the equim olar- stand ardiz ed total PSA (Gudino man Coult er). Kathy rison of seria l PSA resul ts shoul d be inter prete d with this fact in mind. This test was perfo rmed using the [employer] chemi lumin escen t metho d. Value s obtai sami from diffe rent assay metho ds canno t be used inter sharpe eably . PSA level s, regar dless of value , shoul d not be inter prete d as absol seneca-cayuga evide nce of the prese nce or absen ce of disea se. Not Available [employer] [facility] [address] [place], [address], 11/23/2020 20:19:27 11/20/19 21 11/23/2020 vitam in [...] /MS is recom rupali d: order code 58887 (primitivo ents >2yrs ). See Note 1 Note 1 For addit ional infor ellen bolivar e refer to http: //[facility] n.Que stDia gnost ics.c om/fa q/FAQ 199 (This link is being provi ded for infor matio nal/ educa carlos l purpo ses only. ) Not Available [employer] [address] [address] [place], [address], 11/23/2020 20:19:27 11/20/19 21 11/23/2020 testo stero [...] couns eling . For addit ional infor ellen bolivar e refer to http: //[facility] n.que stdia gnost ics.c om/fa q/Tot al Testo stero neLCM SMS (This link is being provi ded for infor matio nal/e ducat ional purpo ses only. ) This test was devjos wheeler and its marjan tical perfo rmanc e jean cteri stics have been deter mined by [facility]. It has not been clear ed or appro brittany by the FDA. This assay has been valid ated pursu ant to the CLIA regul ation s and is used for clini tristan purpo ses. Not Available [employer] [address] [address] [place], [address], 11/23/2020 20:19:28 05/11/20 24 05/14/2024 PSA, TOTAL WITH REFLE X TO PSA, FREE PSA, total 1.3 NG/mL < or = 4.0 The Total PSA value from this assay syste m is stand ardiz ed again st the equim olar PSA stand marcelino. The test resul t will be appro ximat kodi 20% highe r when kathy red to the WHO-s tanda rdize d Total PSA (Siem ens assay ). Kathy rison of seria l PSA resul ts [...] not be inter prete d as absol seneca-cayuga evide nce of the prese nce or absen ce of disea se. Not Available [address], [address], 05/14/2024 13:25:15 06/07/20 24 06/10/2024 TESTO STERO NE, FREE, BIOAV AILAB LE AND TOTAL , MS albumin 3.9 g/dL 3.6-5. 1 Not Available [facility] [address], [address], 06/10/2024 07:39:48 06/07/20 24 06/10/2024 TESTO STERO NE, FREE, BIOAV AILAB LE AND TOTAL , MS sex hormone binding globulin 60.6 nmol/ L 22- Not Available [address], [address], 06/10/2024 07:39:48 06/07/20 24 06/10/2024 TESTO STERO NE, FREE, BIOAV AILAB LE AND TOTAL , MS testosterone , free 116.6 pg/mL 6.0-73 .0 high Not Available [facility] [address], [address], 06/10/2024 07:39:48 06/07/20 24 06/10/2024 TESTO STERO NE, FREE, BIOAV AILAB LE AND TOTAL , MS testosterone ,bioavailabl e 209.4 NG/dL 15.0-1 50.0 high Not Available [facility] [address], [address], 06/10/2024 07:39:48 06/07/20 24 06/10/2024 TESTO STERO NE, FREE, BIOAV AILAB LE AND TOTAL , MS testosterone , total, MS 1216 NG/dL 250-11 00 high For addit ional infor ellen bolivar refer to https ://ed ucati on.qu estdi [employer]. com/f aq/FA Q165 (This link is being provi ded for infor matdavonte nal/e ducat ional purpo ses only. ) (Note ) This test was devel oped and its marjan tical perfo rmanc e jean cteri stics have been deter mined by [employer]. It has not been clear ed or appro brittany by the FDA. This assay has been valid ated pursu ant to the CLIA regul ation s and is used for clini tristan purpo ses. [facility] med fusio n [address] [facility] [address] [facility] [address] [phone] [facility] Berry MD, PhD Not Available [address] [address] [place], [address], 06/10/2024 07:39:48 06/07/20 24 06/10/2024 CBC (INCL UDES DIFF/ PLT) white blood cell count 7.3 thous and/u L 3.8-10 .8 normal Not Available [address] [address] [place], [address], 06/10/2024 07:39:48 06/07/20 24 06/10/2024 CBC (INCL UDES DIFF/ PLT) red blood cell count 4.89 kiesha on/uL 4.20-5 .80 normal Not Available [address] [address] [place], [address], 06/10/2024 07:39:48 06/07/20 24 06/10/2024 CBC (INCL UDES DIFF/ PLT) hemoglobin 15.6 g/dL 13.2-1 7.1 normal Not Available [address], [address], 06/10/2024 07:39:48 06/07/20 24 06/10/2024 CBC (INCL UDES DIFF/ PLT) hematocrit 48.0 % 38.5-5 0.0 normal Not Available [address], [address], 06/10/2024 07:39:48 06/07/20 24 06/10/2024 CBC (INCL UDES DIFF/ PLT) MCV 98.2 fL 80.0-1 00.0 normal Not Available [address], [address], 06/10/2024 07:39:48 06/07/20 24 06/10/2024 CBC (INCL UDES DIFF/ PLT) MCH 31.9 pg 27.0-3 3.0 normal Not Available [address], [address], 06/10/2024 07:39:48 06/07/20 24 06/10/2024 CBC (INCL UDES DIFF/ PLT) MCHC 32.5 g/dL 32.0-3 6.0 normal Not Available [address], [address], 06/10/2024 07:39:48 06/07/20 24 06/10/2024 CBC (INCL UDES DIFF/ PLT) RDW 13.3 % 11.0-1 5.0 normal Not Available [address], [address], 06/10/2024 07:39:48 06/07/20 24 06/10/2024 CBC (INCL UDES DIFF/ PLT) platelet count 202 thous and/u L 140-40 0 normal Not Available [address], [address], 06/10/2024 07:39:48 06/07/20 24 06/10/2024 CBC (INCL UDES DIFF/ PLT) MPV 11.7 fL 7.5-12 .5 normal Not Available [address], [address], 06/10/2024 07:39:48 06/07/20 24 06/10/2024 CBC (INCL UDES DIFF/ PLT) absolute neutrophils 4504 cells /uL 1500-7 800 normal Not Available [address], [address], 06/10/2024 07:39:48 06/07/20 24 06/10/2024 CBC (INCL UDES DIFF/ PLT) absolute lymphocytes 1803 cells /uL 850-39 00 normal Not Available [address], [address], 06/10/2024 07:39:48 06/07/20 24 06/10/2024 CBC (INCL UDES DIFF/ PLT) absolute monocytes 825 cells /uL 200-95 0 normal Not Available [address], [address], 06/10/2024 07:39:48 06/07/20 24 06/10/2024 CBC (INCL UDES DIFF/ PLT) absolute eosinophils 139 cells /uL 15-500 normal Not Available [address], [address], 06/10/2024 07:39:48 06/07/20 24 06/10/2024 CBC (INCL UDES DIFF/ PLT) absolute basophils 29 cells /uL 0-200 normal Not Available [address], [address], 06/10/2024 07:39:48 06/07/20 24 06/10/2024 CBC (INCL UDES DIFF/ PLT) neutrophils 61.7 % normal Not Available [address], [address], 06/10/2024 07:39:48 06/07/20 24 06/10/2024 CBC (INCL UDES DIFF/ PLT) lymphocytes 24.7 % normal Not Available [address], [address], 06/10/2024 07:39:48 06/07/20 24 06/10/2024 CBC (INCL UDES DIFF/ PLT) monocytes 11.3 % normal Not Available [facility] [address], [address], 06/10/2024 07:39:48 06/07/20 24 06/10/2024 CBC (INCL UDES DIFF/ PLT) eosinophils 1.9 % normal Not Available [address], [address], 06/10/2024 07:39:48 06/07/20 24 06/10/2024 CBC (INCL UDES DIFF/ PLT) basophils 0.4 % normal Not Available [facility] [address], [address], 06/10/2024 07:39:48 06/07/20 24 06/10/2024 ESTRA DIOL estradiol 57 pg/mL < or = 39 high Refer ence range estab lishe d on post- puber kirstie patie nt popul ation . No pre-p [...] is recom rupali d (orde r code 79980 ). Pleas e note: patie nts being treat ed [...] s. [facility] order code 17344 -Estr adiol , Ultra sensi tive LC/MS /MS demon rebeccat es negli gible cross react ivity with fulve stran t. Not Available [employer] [address], [address], 06/10/2024 07:39:49 06/15/2006/19/2025 TESTO STERO NE, FREE, BIOAV AILAB LE AND TOTAL , MS albumin 3.9 g/dL 3.6-5. 1 Not Available [facility] [address], [address], 06/19/2025 13:17:22 06/15/20 25 06/19/2025 TESTO STERO NE, FREE, BIOAV AILAB LE AND TOTAL , MS sex hormone binding globulin 56 nmol/ L 22-77 Not Available [facility] [address], [address], 06/19/2025 13:17:22 06/15/20 25 06/19/2025 TESTO STERO NE, FREE, BIOAV AILAB LE AND TOTAL , MS testosterone , free 206.4 pg/mL 6.0-73 .0 high Not Available [facility] [address], [address], 06/19/2025 13:17:22 06/15/2006/19/2025 TESTO STERO NE, FREE, BIOAV AILAB LE AND TOTAL , MS testosterone ,bioavailabl e 370.6 NG/dL 15.0-1 50.0 high Not Available [employer] [facility] [address], [address], 06/19/2025 13:17:22 06/15/20 06/19/2025 TESTO STERO NE, FREE, BIOAV AILAB LE AND TOTAL , MS testosterone , total, MS 1718 NG/dL 250-11 00 high For addit ional infor ellen bolivar refer to https ://ed ucati on.qu estdi joseINDOM tics. com/f aq/FA Q165 (This link is being provi ded for infor asa nal/e ducat ional purpo ses only. ) (Note ) This test was devel oped and its marjan tical perfo rmanc e jean cteri stics have been deter mined by [employer]. It has not been clear ed or appro brittany by the FDA. This assay has been valid ated pursu ant to the CLIA regul ation s and is used for clini tristan purpo ses. MDF med rachell n [address] [facility] [address] [facility] [address] [phone] Arnav Berry MD, PhD Not Available [address], [address], 06/19/2025 13:17:22 06/15/2006/19/2025 TSH+F REE T4 TSH 4.62 mIU/L 0.40-4 .50 high Not Available [address], [address], 06/19/2025 13:17:23 06/15/2006/19/2025 TSH+F REE T4 T4, free 1.2 NG/dL 0.8-1. 8 normal Not Available [facility] [address], [address], 06/19/2025 13:17:23 06/15/2006/19/2025 COMPR EHENS DELANEY METAB OLIC PANEL glucose 91 mg/dL 65-99 normal Fasti ng refer ence inter aneta Not Available [facility] [address], [address], 06/19/2025 13:17:23 06/15/20 25 06/19/2025 COMPR EHENS DELANEY METAB OLIC PANEL urea nitrogen (BUN) 19 mg/dL 7-25 normal Not Available [address], [address], 06/19/2025 13:17:23 06/15/20 25 06/19/2025 COMPR EHENS DELANEY METAB OLIC PANEL creatinine 1.00 mg/dL 0.70-1 .28 normal Not Available [address], [address], 06/19/2025 13:17:23 06/15/20 25 06/19/2025 COMPR EHENS DELANEY METAB OLIC PANEL eGFR 77 mL/mi n/1.7 3m2 > or = 60 normal Not Available [address], [address], 06/19/2025 13:17:23 06/15/20 25 06/19/2025 COMPR EHENS DELANEY METAB OLIC PANEL BUN/creatini ne ratio SEE NOTE: (calc ) 6-22 Not Repor amy: BUN and Creat inine are withi n refer ence range . Not Available [address], [address], 06/19/2025 13:17:23 06/15/20 25 06/19/2025 COMPR EHENS DELANEY METAB OLIC PANEL sodium 140 mmol/ L 135-14 6 normal Not Available [address], [address], 06/19/2025 13:17:23 06/15/20 25 06/19/2025 COMPR EHENS DELANEY METAB OLIC PANEL potassium 4.4 mmol/ L 3.5-5. 3 normal Not Available [address], [address], 06/19/2025 13:17:23 06/15/20 25 06/19/2025 COMPR EHENS DELANEY METAB OLIC PANEL chloride 103 mmol/ L 98-110 normal Not Available [address], [address], 06/19/2025 13:17:23 06/15/20 25 06/19/2025 COMPR EHENS DELANEY METAB OLIC PANEL carbon dioxide 30 mmol/ L 20-32 normal Not Available [address], [address], 06/19/2025 13:17:23 06/15/20 25 06/19/2025 COMPR EHENS DELANEY METAB OLIC PANEL calcium 9.7 mg/dL 8.6-10 .3 normal Not Available [address], [address], 06/19/2025 13:17:23 06/15/20 25 06/19/2025 COMPR EHENS DELANEY METAB OLIC PANEL protein, total 6.7 g/dL 6.1-8. 1 normal Not Available [address], [address], 06/19/2025 13:17:23 06/15/20 25 06/19/2025 COMPR EHENS DELANEY METAB OLIC PANEL albumin 4.0 g/dL 3.6-5. 1 normal Not Available [address], [address], 06/19/2025 13:17:23 06/15/20 25 06/19/2025 COMPR EHENS DELANEY METAB OLIC PANEL globulin 2.7 g/dL_ (calc ) 1.9-3. 7 normal Not Available [address], [address], 06/19/2025 13:17:23 06/15/20 25 06/19/2025 COMPR EHENS DELANEY METAB OLIC PANEL albumin/glob ulin ratio 1.5 (calc ) 1.0-2. 5 normal Not Available [address], [address], 06/19/2025 13:17:23 06/15/20 25 06/19/2025 COMPR EHENS DELANEY METAB OLIC PANEL bilirubin, total 1.4 mg/dL 0.2-1. 2 high Not Available [address], [address], 06/19/2025 13:17:23 06/15/20 25 06/19/2025 COMPR EHENS DELANEY METAB OLIC PANEL alkaline phosphatase 101 U/L 35-144 normal Not Available [address], [address], 06/19/2025 13:17:23 06/15/20 25 06/19/2025 COMPR EHENS DELANEY METAB OLIC PANEL AST 22 U/L 10-35 normal Not Available [address], [address], 06/19/2025 13:17:23 06/15/20 25 06/19/2025 COMPR EHENS DELANEY METAB OLIC PANEL ALT 18 U/L 9-46 normal Not Available [address], [address], 06/19/2025 13:17:23 06/15/20 25 06/19/2025 CBC (INCL UDES DIFF/ PLT) white blood cell count 6.9 thous and/u L 3.8-10 .8 normal Not Available [address], [address], 06/19/2025 13:17:24 06/15/20 25 06/19/2025 CBC (INCL UDES DIFF/ PLT) red blood cell count 4.47 kiesha on/uL 4.20-5 .80 normal Not Available [address], [address], 06/19/2025 13:17:24 06/15/20 06/19/2025 CBC (INCL UDES DIFF/ PLT) hemoglobin 13.9 g/dL 13.2-1 7.1 normal Not Available [address], [address], 06/19/2025 13:17:24 06/15/2006/19/2025 CBC (INCL UDES DIFF/ PLT) hematocrit 43.1 % 38.5-5 0.0 normal Not Available [address], [address], 06/19/2025 13:17:24 06/15/2006/19/2025 CBC (INCL UDES DIFF/ PLT) MCV 96.4 fL 80.0-1 00.0 normal Not Available [address], [address], 06/19/2025 13:17:24 06/15/2006/19/2025 CBC (INCL UDES DIFF/ PLT) MCH 31.1 pg 27.0-3 3.0 normal Not Available [address], [address], 06/19/2025 13:17:24 06/15/2006/19/2025 CBC (INCL UDES DIFF/ PLT) MCHC 32.3 g/dL 32.0-3 6.0 normal For adult s, a sligh t decre ase in the calcu lated MCHC value (in the range of 30 to 32 g/dL) is most likel y not clini pramod signi owen t; jaylan er, it shoul d be inter prete d with cauti on in corre latio n with other red cell matthew eters and the patie nt's clini tristan condi tion. Not Available [address], [address], 06/19/2025 13:17:24 06/15/2006/19/2025 CBC (INCL UDES DIFF/ PLT) RDW 13.8 % 11.0-1 5.0 normal Not Available [address], [address], 06/19/2025 13:17:24 06/15/20 25 06/19/2025 CBC (INCL UDES DIFF/ PLT) platelet count 261 thous and/u L 140-40 0 normal Not Available [address], [address], 06/19/2025 13:17:24 06/15/20 25 06/19/2025 CBC (INCL UDES DIFF/ PLT) MPV 11.1 fL 7.5-12 .5 normal Not Available [address], [address], 06/19/2025 13:17:24 06/15/20 25 06/19/2025 CBC (INCL UDES DIFF/ PLT) absolute neutrophils 3919 cells /uL 1500-7 800 normal Not Available [address], [address], 06/19/2025 13:17:24 06/15/20 25 06/19/2025 CBC (INCL UDES DIFF/ PLT) absolute lymphocytes 1539 cells /uL 850-39 00 normal Not Available [address], [address], 06/19/2025 13:17:24 06/15/20 25 06/19/2025 CBC (INCL UDES DIFF/ PLT) absolute monocytes 966 cells /uL 200-95 0 high Not Available [address], [address], 06/19/2025 13:17:24 06/15/20 25 06/19/2025 CBC (INCL UDES DIFF/ PLT) absolute eosinophils 449 cells /uL 15-500 normal Not Available [address], [address], 06/19/2025 13:17:24 06/15/2006/19/2025 CBC (INCL UDES DIFF/ PLT) absolute basophils 28 cells /uL 0-200 normal Not Available [address], [address], 06/19/2025 13:17:24 06/15/20 25 06/19/2025 CBC (INCL UDES DIFF/ PLT) neutrophils 56.8 % normal Not Available [address], [address], 06/19/2025 13:17:24 06/15/2006/19/2025 CBC (INCL UDES DIFF/ PLT) lymphocytes 22.3 % normal Not Available [address], [address], 06/19/2025 13:17:24 06/15/2006/19/2025 CBC (INCL UDES DIFF/ PLT) monocytes 14.0 % normal Not Available [address], [address], 06/19/2025 13:17:24 06/15/2006/19/2025 CBC (INCL UDES DIFF/ PLT) eosinophils 6.5 % normal Not Available [address], [address], 06/19/2025 13:17:24 06/15/2006/19/2025 CBC (INCL UDES DIFF/ PLT) basophils 0.4 % normal Not Available [address], [address], 06/19/2025 13:17:24 06/15/2006/19/2025 HS CRP hs CRP 4.4 mg/L high Refer ence Range Optim al <1.0 Edison SUAREZ et al. Endoc r Pract .2017 ;23(S uppl 2):1- 87. For ages >17 Years : hs-CR P mg/L Risk Accor ding to AHA/C DC Guide lines <1.0 Lower relat delaney cardi ovasc ular risk. 1.0-3 .0 [place] ge relat delaney cardi ovasc ular risk. 3.1-1 0.0 Highe r relat delaney cardi ovasc ular risk. Consi phyllis retes ting in 1 to 2 weeks to exclu de a benig n trans ient eleva tion in the basel ine CRP value secon anjel to infec tion or infla mmati on. >10.0 Persi stent eleva tion, upon retes ting, may be assoc iated with infec tion and infla mmati on. Pears on TA, Mensa h [place], Doris rdzr RW, et al. [employer] rs of infla mmati on and cardi ovasc ular disea se: appli catio n to clini tristan and publi c healt h pract ice: A state ment for healt hcare profe ssion als from the [facility] rs for Disea se Contr ol and Preve ntion and the [facility] can [facility] Assoc iatio n. Circu latio n 2003; 107(3 ): 499-5 11. Not Available [employer] [address], [address], 06/19/2025 13:17:24 06/15/2006/19/2025 THYRO ID PEROX IDASE ANTIB ODIES thyroid peroxidase antibodies <1 IU/mL <9 Not Available [employer] [address] [address] [place], [address], 06/19/2025 13:17:24 06/15/2006/19/2025 LH LH 0.2 mIU/m L 1.6-15 .2 low Not Available [employer] [address], [address], 06/19/2025 13:17:25 06/15/2006/19/2025 PROLA CTIN prolactin 9.7 NG/mL 2.0-18 .0 normal Not Available [employer] [address], [address], 06/19/2025 13:17:25 06/15/2006/19/2025 VITAM IN B12 vitamin B12 560 pg/mL 200-11 00 normal Not Available [address], [address], 06/19/2025 13:17:25 06/15/2006/19/2025 PSA, TOTAL PSA, total 1.34 NG/mL < or = 4.00 normal The total PSA value from this assay syste m is stand ardiz ed again st the WHO stand marcelino. The test resul t will be appro ximat kodi 20% lower when kathy red to the equim olar- stand ardiz ed total PSA (Gudino man Coult er). Kathy rison of seria l PSA resul ts shoul d be inter prete d with this fact in mind. This test was perfo rmed using the [employer] chemi lumin escen t metho d. Value s obtai sami from diffe rent assay metho ds canno t be used inter sharpe eably . PSA level s, regar dless of value , shoul d not be inter prete d as absol sen[place]-c[place] evide nce of the prese nce or absen ce of disea se. Not Available [employer] [address], [address], 06/19/2025 13:17:25 06/15/2006/19/2025 T3, FREE T3, free 3.6 pg/mL 2.3-4. 2 normal Not Available [facility] [address] [address] [place], [address], 06/19/2025 13:17:26 06/15/2006/19/2025 ESTRA DIOL estradiol 65 pg/mL < or = 39 high Refer ence range estab lishe d on post- puber kirstie patie nt popul ation . No pre-p [...] is recom rupali d (orde r code 92586 ). Ellen mora note: patie nts being treat ed with [...] s. [facility] order code 81095 -Estr adiol , Ultra sensi tive LC/MS /MS demon strat es negli gible cross react ivity with fulve stran t. Not Available [employer] [facility] [address] [place], [address], 06/19/2025 13:17:26 06/15/20 25 06/19/2025 VITAM IN D,25- OH,TO KIRSTIE,I A vitamin D,25-oh,tota l,ia 73 NG/mL 30-100 normal Vitam in D Statu [...] /MS is recom rupali d: order code 64057 (primitivo ents >2yrs ). See Note 1 Note 1 For addit ional infor ellen bolivar refer to http: [email or web address] [email or web address] q/FAQ 199 (This link is being provi ded for infor asa nal/ educa carlos l purpo ses only. ) Not Available [facility] [address] [place], [address], 06/19/2025 13:17:26 06/15/20 25 06/19/2025 HEMOG LOBIN A1C hemoglobin A1C 5.9 %_of_ total _HGB <5.7 high For someo ne witho ut known diabe varun, a hemog lobin A1c value betwe en 5.7% and 6.4% is consi stent with predi abete s and shoul d be confi rmed with a follo w-up test. For someo ne with known diabe varun, a value <7% indic ates that their diabe varun is well contr olled . A1c targe ts shoul d be indiv idual ized based on durat ion of diabe varun, age, comor bid condi tions , and other consi derat ions. This assay resul t is consi stent with an incre ased risk of diabe varun. Curre ntly, no conse nsus exist s regar ding use of hemog lobin A1c for diagn osis of diabe varun for child dereck. Not Available [facility] [address] [place], [address], 06/19/2025 13:17:27 10/06/20 19 08/25/2019 physi tristan thera py* No observ ation record ed. BARCODE Not Available 2018 18:42:59 Result Notes None recorded. Problems Name Problem SNOMED Code Status Onset Date Resolution Date Notes Provider Name and Address Organization Details Recorded Time Pain of hip region 75194735 Active Latia Dozier [address], [place], [address], [employer], [place] 5 10:20:05 Osteoarthritis of hip 217276398 Active Latia Tasia [address], [place], [address], [employer], [facility] 5 10:20:05 Sciatica 65605060 Active Latia Dozier [address], [place], [address], [employer], [facility] 5 10:20:05 Chronic sciatica 274913425 Active Latia Dozier [address], [place], [address], [employer], [facility] 5 10:20:05 Problem Notes None recorded. Procedures Surgical History Date Name Laterality Status Provider Name and Address Organization Details Recorded Time 07/12/20 24 Laboratory Test completed Bruno Bardales [address], [place], [address], [employer], [facility] 07/12/2024 11:11:25 12/08/19 20 Generic Procedure completed GREGORY PADGETT [address], [place], [address], [employer], [facility] 12/08/2019 15:20:36 03/17/20 19 Generic Procedure completed Main Sandy [employer] [facility], [facility] 03/17/2019 11:14:38 05/21/20 18 Generic Procedure completed LASHAWN NICOLAS PA-C [address], [place], [address], [employer] [facility], [facility] 05/22/2018 00:26:49 07/14/20 17 Generic Procedure completed LASHAWN NICOLAS PA-C [address], [place], [address], [employer], [facility] 07/14/2017 12:53:12 04/19/20 09 Colonoscopy completed Latia Dozier [address], [place], [address], [employer] [facility], [facility] 01/10/2015 15:01:41 10/20/19 01 Flexible Sigmoidoscopy completed Latia Dozier [address], [place], [address], [employer] [facility], [facility] 01/10/2015 15:01:41 03/20/19 50 Tonsillectomy completed Latia Do[place] [address] [place], [address], [facility], [facility] 01/10/2015 15:01:41 Joint Replacement completed Millicent Armenta [facility], [facility] 12/08/2019 14:07:54 Hip Surgery completed Millicent [facility], [facility] 12/08/2019 14:07:54 Gastrointestinal Surgery completed Millicent Armenta [facility] 12/08/2019 14:07:54 Imaging Results None recorded. Procedure Notes None recorded. Medical Equipment None Reported. Allergies Allergen ID Allergen Name Allergen Category Reaction Reaction Severity Criticality Documentation Date Start Date Code Code System Note Provider Name and Address Organization Details Recorded Time 69800 cat hair extract medicatio n Not available Not available Not available 01/10/20151987 31481 3 RxNorm Millicent Armenta [facility] 0 14:07:03 91463 short ragweed pollen extract medicatio n Not available Not available Not available 01/10/20151969 02009 5 RxNorm Latia Dozier [address] [place], [address], [facility] 5 15:00:13 [address]73[address] shellfish derived food,medi cation Not available Not available Not available 01/10/20151984 Millicent Armenta [facility] 0 14:07:03 [address]63 Augmentin medicatio n Not available Not available Not available 07/14/2017 33588 2 RxNorm [facility] 0 14:07:03 78422 cat dander environme nt Not available Not available Not available 12/08/2019 [facility] 0 14:07:03 Medications Name Sig Start Date [...] cypionate 200 mg/mL intramuscula r oil INJECT 1ML INTO THE MUSCLE EVERY WEEK 2024 active Not [...] Not Available Not Available BD Regular Bevel [place] 25 gauge x 1 1/2 USE TO [...] active Not Available Not Available Not Available Pfizer-BioNT ech COVID-19 Vaccine (PF) 30 mcg/0.3 mL [...] Updated DateTime 12/08/2019 187.96 cm 27.9 kg/m2 73418.54 g 79 /min 148/79 mm[Hg] Millicent Armenta [employer], [place] 12/08/2019 14:05:59 Date Recorded Body height Body mass index (BMI) Body weight Heart rate Systolic And Diastolic Provider Name and Address Organization Details Last Updated DateTime 03/17/2019 187.96 cm 27.9 kg/m2 26673.54 g 67 /min 164/79 mm[Hg] Abigail Jeronimo [employer], [facility] 9 10:12:02 Date Recorded Body height Body mass index (BMI) Body weight Heart rate Systolic And Diastolic Provider Name and Address Organization Details Last Updated DateTime 07/02/2018 187.96 cm 27.9 kg/m2 82808.54 g 67 /min 122/80 mm[Hg] Latia Dozier [address] [place], [address] , [employer], [facility] 07/02/2018 09:44:13 Social History Question Answer Notes LastModified by Organizat ion Details LastModified Time Tobacco Sm[place], [address], [employer], [facility] 01/10/2015 15:01:21 Do You Have An Advance [...] not available 01/10/2015 Who Is Your Employer? [employer] Information not available 01/10/2015 Which Of Your [...] What Is The Name Of Your School? 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 Information not available 07/14/2017 What is your [...] available 2019 14:07:12 Medical History Condition Response HIV or AIDS N Coronary Artery Disease N Other Cancer N Gout N Kidney Stones N Hyperthyroidism N Breast Cancer N Head Trauma/Injury N Hernia N Lung Cancer N COPD N Blood Clots N Depression N Lung Disease N Hypothyroidism [...] Multiple Sclerosis N Ulcers N Heart Attack ([place]) N Diabetes N Bleeding Disorder N Seizures/Epilepsy [...] Details Recorded Time tetanus toxoid, unspecified formulation 5 completed [facility] [address] [place], [address], [facility] 01/10/2015 15:02:12 polio, unspecified formulation 5 completed [facility] [address] [place], [address], [employer], [place] 01/10/2015 15:02:12 Influenza, split virus, trivalent, preservative 4 completed [facility] [address], [address], [facility] 01/10/2015 15:02:12 Past Encounters Encounter ID Performer Location Encounter Start Date Encounter Closed Date Diagnosis/Indication Diagnosis SNOMED-CT Code Diagnosis ICD10 Code Diagnosis IMO Codes Diagnosis Note [id number] Kings Bowen MD [facility] [address] R[place] [id number] 01/10/2015 14:26:27 01/10/2015 16:12:40 Pain of hip region 23088633 Osteoarthritis of hip 398232061 Sciatica 08891948 Chronic sciatica 435403547 [id number] Kings Bowen MD [facility] [address] [employer] RASHID FAJARDO [id number] 07/14/2017 10:25:00 07/14/2017 12:04:09 Pain in left knee 9039107771 94424 M25.562 Malaise and fatigue 2717 77745 R53.83 E34.9 E27.1 Z12.5 M89.9 M94.9 Anxiety 12802126 F41.9 Chondromal acia of patella 05354710 M22.41 M22.42 Osteoarthr itis of knee 027185541 M17.0 Derangemen t of meniscus 290884805 M23.251 [id number] Kings Bowen MD [facility] [address] [place] [id number] 10/23/2017 08:53:38 10/23/2017 10:34:38 Knee pain 39574393 M25.561 M25.562 Osteoarthr itis of knee 856028774 M17.0 Chondromal acia of patella 78846996 M22.41 M22.42 Derangemen t of meniscus 792632988 M23.251 [id number] Kings Bowen MD [facility] [address] [facility] [facility] [place] [id number] 01/20/2018 11:33:15 01/20/2018 13:31:46 Knee pain 16077153 M25.561 M25.562 Osteoarthr itis of knee 403682779 M17.0 Chondromal acia of patella 63246216 M22.41 M22.42 Derangemen t of meniscus 626319322 M23.251 [id number] Kings Bowen MD [facility] [address] [place] [id number] 05/21/2018 14:59:30 05/21/2018 16:01:23 Knee pain 02936366 M25.561 M25.562 Osteoarthr itis of knee 711005293 M17.0 Chondromal acia of patella 69955296 M22.41 M22.42 Derangemen t of meniscus 998818059 M23.251 [id number] Kings Bowen MD [facility] [address] [place] [address] 06/04/2018 14:57:10 06/04/2018 16:08:54 Knee pain 64222035 M25.561 M25.562 Osteoarthr itis of knee 004775573 M17.0 Chondromal acia of patella 29607256 M22.41 M22.42 Derangemen t of meniscus 103483888 M23.251 [id number] Kings Bowen MD [facility] [address] RASHID [place] [id number] 06/18/2018 15:06:53 06/18/2018 15:50:59 [id number] Kings Bowen MD [facility] [address] [place] [id number] 07/02/2018 08:30:28 07/02/2018 09:18:44 Osteoarthritis of knee 882967248 M17.11 M17.12 [id number] GREGORY PADGETT [facility] [address] [place] [id number] 03/17/2019 09:54:40 03/17/2019 10:52:21 Pain of elbow region 57067103 M25.522 Malaise and fatigue 2717 [address]606 R53.83 M89.9 M94.9 Z12.5 Z01.812 R53.81 Lateral epicondylitis 20 7371296 M77.12 Osteoarthr itis of elbow 449003813 M19.022 [id number] GREGORY PADGETT [facility] [address] [place] [id number] 12/08/2019 13:12:58 12/14/2019 10:35:59 Knee pain 91282668 M25.562 Osteoarthr itis of left knee joint 1861275490 35133 M17.12 at today's office visit I had discussed with the patient that I do feel that his pain and discomfort is originatin g from the exercises that he was doing with the abduction exercises at [facility]. This started his pain and discomfort is improving since he has discontinu ed the exercises. We had a discussion about continuing to do so over [facility] however modifying activity that bothers his knees. All questions were answered. He understood the treatment plan. Greater than 30 minutes face-to-fa ce visit with more than 15 minutes of my time spent counseling the patient about their diagnosis including pathophysi ology and treatment options. [id number] Bruno Bardales [facility] [address] [place] [id number] 07/12/2024 10:32:54 07/12/2024 10:51:04 Male hypogonadism 35232152 E29.1 Stay the course with testostero ne replacemen t therapy. Follow-up in 6 months for repeat lab work. [id number] LASHAWN NICOLAS PA-C [facility] [address] [facility] [place] [id number] 05/30/2025 14:45:07 05/30/2025 14:59:22 Male hypogonadism 54555779 E29.1 Health Concerns Section Related Observation LastModified by Organization Detai ls LastModified Time None Recorded Concern Status LastModified by Organization Details LastModified Time None Recorded Advance Directives Directive Y: Payers Insurance Date Sequence Insurance Name Policy Number Policy Woodson Covered Member ID Woodson Member ID Guarantor Name 07/16/2017 2 [employer]OHLI CONSUMER (MEDICARE SUPPLEMENT) Herson Ayala Lottes [id number] Herson Godoy 01/10/2015 1 *SELF PAY* Hafsa solange Godoy 05/27/2025 1 [place] Herson Gonzaleztes [id number] Herson Ayala Lottes 06/06/2025 2 [place] [id number] Herson Gonzaleztes [id number] Herson Ayala Lottes 2024 2 [email or web address] (MEDICARE SUPPLEMENT) Herson Godoy [id number] Herson Godoy Notes Date Note Type Note [...] form 4/10 to 5/10.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 He enjoys riding a stationary bike. He had BMAC/fat of right and left knee in 10/2017 with moderate improvements. He has a history of hypertension and hyperlipidemia. He also had bilateral total hip arthroplasty and trigger thumb surgery. [facility] [employer], [facility] 03/17/2019 12:10:20 12/08/2019 text/html Pain Score Pain scale from 0-10, 10 being the worst 2 Chief Complaint Pain scale from 0-10, 10 being the worst 2 [facility] 12[facility]08[facility]2019 74-year-old male who comes in today for follow-up visit regarding his left knee he was treated with BMAC 10/2017, PRP 01/2018, and a series of prolotherapy 2017. He started having pain again after doing abduction exercises with a band around the ankle. GREGORY PADGETT [id number] [employer], [address], [employer], [place] 12/08/2019 15:21:56 07/12/2024 text/html Here today for follow-up regarding his use of testosterone replacement therapy. He is doing well. No side effects. Bruno Bardales [id number] [employer], [address], [employer], [place] 07/12/2024 11:12:16 05/30/2025 text/html 79 y/o M presents for annual follow-up for testosterone optimization. He did discontinue for a few weeks following recent TKA and noticed symptoms of decreased energy and libido as well as sleep difficulty. He is healing well and ambulating with a walker. He denies adverse effects on testosterone, including no mood changes or acne. He denies other complaints. LASHAWN NICOLAS PA-C [address] [employer], [address], [employer] [facility], [place] 06/05/2025 18:46:48
--- OUTSIDE RECORDS SUMMARY | 2025-10-17 08:55 | XMS_ITS | Encounter Summary ---
Author Organization [facility] Address 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
--- OUTSIDE RECORDS SUMMARY | 2025-10-17 08:55 | XMS_ITS | Encounter Summary ---
Author Organization [facility] Address [address] [place] [address] Care Team Providers Care Telegraph Editor Name Role Phone Bartolome Arriola MD Primary [...] AM CDT Legal Sex Male 4:17 AM SCALE BALANCER Gender Identity Male 06/26/2024 8:42 AM CDT [...] on filedocumented in this encounter Care Teams Telegraph Editor Relationship Specialty Start Date End Date Bartolome Arriola MD PCP - General Internal Medicine 08/17/20 documented as of this encounter
--- OUTSIDE RECORDS SUMMARY | 2025-10-17 08:55 | XMS_ITS | Encounter Summary ---
Author Organization [facility] Address [address] [place] [address] Care Team Providers Care Gourmet Coffee Attendant Name Role Phone Bartolome Arriola MD Primary Care Provider Unavailable Encounter Details Date Type Department Care Team (Late st Contact Info) Description 05/07/2000 Outpatient Historical [facility] Ar Zhang MD 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
--- OUTSIDE RECORDS SUMMARY | 2025-10-17 08:55 | XMS_ITS | Encounter Summary ---
Author Organization [facility] Address 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
--- OUTSIDE RECORDS SUMMARY | 2025-10-17 08:55 | XMS_ITS | Encounter Summary ---
Author Organization [facility] Address 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
--- OUTSIDE RECORDS SUMMARY | 2025-10-17 08:55 | XMS_ITS | Encounter Summary ---
Author Organization [facility] Address 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
--- OUTSIDE RECORDS SUMMARY | 2025-10-17 08:55 | XMS_ITS | Encounter Summary ---
Author Organization [facility] Address 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
--- OUTSIDE RECORDS SUMMARY | 2025-10-17 08:55 | XMS_ITS | Encounter Summary ---
Author Organization [facility] Address 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
--- OUTSIDE RECORDS SUMMARY | 2025-10-17 08:55 | XMS_ITS | Encounter Summary ---
Author Organization [facility] Address [address] [place] [address] Care Team Providers Care Medical Records Manager Name Role Phone Bartolome Arriola MD [...] AM CDT Legal Sex Male 4:17 AM SPIKEMAKING SUPERVISOR Gender Identity Male 06/26/2024 8:42 AM [...] filedocumented in this encounter Care Teams Medical Records Manager Relationship Specialty Start Date End Date Bartolome Arriola MD PCP - General Internal Medicine 08/17/20 documented as of this encounter
--- OUTSIDE RECORDS SUMMARY | 2025-10-17 08:55 | XMS_ITS | Encounter Summary ---
Author Organization [facility] Address [address] [place] [address] Care Team Providers Care Driver Merchandiser Name Role Phone Bartolome Arriola MD Primary [...] AM CDT Legal Sex Male 4:17 AM SYSTEMS NAVIGATOR Gender Identity Male 06/26/2024 8:42 AM CDT [...] on filedocumented in this encounter Care Teams Driver Merchandiser Relationship Specialty Start Date End Date Bartolome Arriola MD PCP - General Internal Medicine 08/17/20 documented as of this encounter
--- OUTSIDE RECORDS SUMMARY | 2025-10-17 08:55 | XMS_ITS | Encounter Summary ---
Author Organization [facility] Address 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
--- OUTSIDE RECORDS SUMMARY | 2025-10-17 08:55 | XMS_ITS | Encounter Summary ---
Author Organization [facility] Address 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
--- OUTSIDE RECORDS SUMMARY | 2025-10-17 08:55 | XMS_ITS | Encounter Summary ---
Author Organization [facility] Address [address] [place] [address] Care Team Providers Care Manager Life Sciences Name Role Phone Bratolome Arriola MD Primary [...] AM CDT Legal Sex Male 4:17 AM PYTHON DEVELOPER Gender Identity Male 06/26/2024 8:42 AM [...] filedocumented in this encounter Care Teams Manager Life Sciences Relationship Specialty Start Date End Date Bartolome Arriola MD PCP - General Internal Medicine 08/17/20 documented as of this encounter
--- NOTE | 2025-11-07 18:44 | WPDSLEEPSTUD ---
Sleep Study Date of Study: 10/17/25 Ordering Provider: Basilio France, MOTOR TRANSPORT INSPECTOR Interpreting Physician: Sita Casper DO Sleep Study Type: Split Polysomnogram Height: 1.85 m Weight: 92.986 kg Body Mass Index: 27.0 Neck Circumference (inches): 14 [place]: 5 Reason for Sleep Study snoring, daytime hypersomnia Sleep History The patient is a 80-year-old male that had a sleep study ordered for evaluation of sleep apnea. The patient occasionally awakens from sleep short of breath. He rarely awakens at night with heartburn, belching or cough. He frequently snores and is occasionally loud enough that others complain. He rarely has trouble sleeping when he has a cold. He rarely wakes up gasping for air throughout the night. He denies sweating excessively at night. He rarely has heart palpitations or irregular heartbeats during the night. He rarely falls asleep during the day but occasionally will fall asleep involuntarily. He denies falling asleep while driving. He denies sleep paralysis and cataplexy. He denies having trouble at school or work due to sleepiness. He occasionally experiences vivid dreamlike scenes upon awakening or falling asleep. He denies feeling afraid of going to sleep. He rarely has nightmares. He occasionally remembers his dreams. He occasionally has thoughts racing through his mind. He rarely feels sad or depressed. He occasionally has anxiety. He rarely has muscular tension. He occasionally notices parts of his body jerk. He denies kicking during night. He rarely has aching feelings in his legs but occasionally has leg pain during the night. He occasionally grinds his teeth during sleep but never awakens with morning jaw pain. He is rarely bothered by pain during the day rarely awakened by pain during the night. He occasionally wakes up feeling stiff in the morning. He rarely wakes up with sore or achy muscles. He rarely wakes up with pain in the neck, spine and other joints. He goes to bed between 10 30-11 p.m. on weekdays and weekends. It takes him less than 5 minutes to fall asleep. He wakes up 1-6 times throughout the night to urinate is able to fall back asleep within a few minutes. He wakes up between 6-7 a.m. on weekdays and at 6:00 a.m. on the weekends. He typically gets 6-7 hours of sleep per night. He will stay in bed for 15 minutes at most after waking up in the morning. He currently lives with his . He denies consuming any caffeinated beverages within 2 hours of bedtime. He denies engaging in physical exercise before bedtime. He will watch television before falling asleep. He will occasionally take naps in afternoon or the evening and they are refreshing. He consumes 24 oz of caffeinated beverage per day. He quit smoking cigarettes 50 years ago. He has 2 alcoholic beverages per month. He denies recreational drug use. REPLACED BY [facility] Past Medical History Medical History Venous stasis dermatitis of both lower extremities Prediabetes Aortic stenosis, mild Gastritis (~05/2024) Hypogonadism in male Chronic eczematous otitis externa of left ear Allergic rhinitis Chronic venous insufficiency of lower extremity Vitamin D deficiency Osteoarthritis Hyperlipidemia Hypertension Surgical History Surgical History History of total right knee replacement (~05/16/25) History of total left hip replacement (~2014) History of cataract surgery Left Eye (Dr. Vel Chino, [facility]) 2023; Right Eye (Dr. Vel Chino, [facility]) 2023 History of right hip replacement (~2015) History of cholecystectomy (~2016) S/P trigger finger release b/l multiple - 2018 Hx of tonsillectomy (~1950) Family History Family History Other Cancer Family history non-contributory Social History Social History Smoking packs per day: 1 Smoking cigarettes per day: 20.0 Years smoked: 7 Smoking pack-years: 7.00 Smoking status: Former smoker Smoking end date: 12/18/76 Additional smoking assessment comments: DENIES ANY FORM OF TOBACCO USE Alcohol intake: current Drinks per week: 1 Alcohol use details: 2 per month Substance use: never Substance use type: does not use Lack of Transportation: No Lack of Food: Never True Current Housing: I Have Housing Concerned About Future Housing: No Difficulty Paying Gas/Electric Bills: No Difficulty Paying for Meds: No Currently Unemployed: No Education: Master's Degree or Higher Difficulty w/ Childcare or Family Care: No Living arrangements: with family Occupation/Education: retired Additional occupation/education comments: 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 [employer] Gender identity (if verbalized by the patient): Male Sexual Orientation (if Verbalized by the Patient): Straight or Heterosexual Spiritual care concerns: No Agree to blood products: Yes Medications Home Medications ?Medication ?Instructions ?Recorded ?Confirmed ?Type cholecalciferol (vitamin D3) 125 125 mcg PO EVERY OTHER DAY 11/18/23 09/21/25 History mcg (5,000 unit) capsule levocetirizine 5 mg tablet 5 mg PO DAILY 11/18/23 09/21/25 History utsqrlac-qyw-kvpsa acid 0.4 1 tablet PO DAILY 11/18/23 09/21/25 History mg-lycopene 300 mcg-lutein 250 mcg tablet (Centrum Silver) polyethylene glycol 3350 17 17 g PO DAILY 11/18/23 09/21/25 History gram/dose oral powder (Miralax) turmeric root extract 500 mg 500 mg PO DAILY 11/18/23 09/21/25 History capsule testosterone cypionate 200 mg/mL 100 mg IM WEEKLY 01/14/24 09/21/25 History intramuscular oil fluticasone propionate 50 2 spray intranasal BID 04/21/25 09/21/25 History mcg/actuation nasal spray,suspension acetaminophen 500 mg tablet 1,000 mg PO BID PRN pain 08/10/25 09/21/25 History (Acetaminophen Pain Relief) atorvastatin 40 mg tablet 40 mg PO QHS #90 tabs 09/05/25 09/21/25 Rx losartan 100 1 tablet PO DAILY #90 tabs 09/07/25 09/21/25 Rx mg-hydrochlorothiazide 25 mg tablet celecoxib 200 mg capsule 200 mg PO .QOD 09/21/25 09/21/25 History metoprolol succinate 25 mg 25 mg PO DAILY #90 tabs 09/21/25 09/21/25 Rx tablet,extended release 24 hr mometasone 0.1 % topical cream 1 applic topical DAILY PRN 09/21/25 09/21/25 History omeprazole 20 mg capsule,delayed 20 mg PO DAILY PRN acid reflux #90 09/21/25 Rx release caps Sleep Procedure A full night split study using the [employer] multi-channel system recorded the standard physiologic parameters including EEG, EOG, submentalis EMG, anterior tibialis EMG, EKG, body position, nasal and oral airflow using nasal pressure sensor and thermistor.? Respiratory parameters of chest and abdominal movements were recorded with Respiratory Inductance Plethysmography belts. Oxygen saturation was recorded by pulse oximetry. Video monitoring was also performed. Sleep stages, periodic limb movements, and EEG arousals were scored in 30 second epochs according to the criteria of the AASM Scoring Manual. The Apnea-Hypopnea Index was calculated using [facility] guidelines for definition of hypopnea with 4% O2 desaturations while scoring respiratory events. Sleep Architecture During the diagnostic portion of the study, the total recording time was 216.3 minutes. The total sleep time was 149.0 minutes. Sleep latency was 9.3 minutes.? REM latency was 109.0 minutes. Sleep Efficiency was 68.9%. The patient had 19 awakenings for an awakening index of 7.7. Wake after sleep onset time was 58.0 minutes. The patient spent 22.0 minutes, 14.8% of total sleep time in Stage N1. The patient spent 105.5 minutes, 70.8% in Stage N2. The patient spent 21.0 minutes, 14.1% in Stage N3. The patient spent 0.5 minutes, 0.3% in Stage REM sleep. At 02:21:49 AM the patient was placed on PAP treatment and was titrated at pressures ranging from 4 cm H20 up to 8 cm H20. During the treatment portion of the study, the total recording time was 222.7 minutes.? The total sleep time was 101.5 minutes. Sleep latency was 41.5 minutes. REM sleep was not achieved during this portion of the study. Sleep Efficiency was 45.6%. Wake after Sleep Onset time was 80.0 minutes. The patient spent 26.5 minutes, 26.1% of total sleep time in Stage N1. The patient spent 75.0 minutes, 73.9% in Stage N2. The patient spent 0.0 minutes, 0.0% in Stage N3. The patient spent 0.0 minutes, 0.0% in Stage REM. Respiratory Analysis During the diagnostic portion of the study, the patient had 15 hypopneas and 3 obstructive apneas for an overall Apnea Hypopnea Index of 7.2 events per hour. The REM Apnea Hypopnea Index was 0. The NREM Apnea Hypopnea Index was 7.3. The patient had a Central Apnea Hypopnea Index of 0. There was no evidence of Noel-Chang Respirations. During the treatment portion of the study, the patient had 1 hypopnea and 3 central apneas for an overall Apnea Hypopnea Index of 2.4 events per hour. The REM Apnea Hypopnea Index was 0. The NREM Apnea Hypopnea Index was 2.4. The patient had a Central Apnea Hypopnea Index of 1.8. There was no evidence of Noel-Chang Respirations. The patient was started on CPAP 4 cm H2O and titrated to CPAP 8 cm H2O due to hypopneas. The patient was able to fall asleep starting on CPAP 4 cm H2O. The patient was unable to achieve REM sleep during the titration portion of the study. On CPAP 7 cm H2O, the patient spent 18.5 minutes in NREM with no respiratory events, resulting in an AHI of 0. The patient had a sleep efficiency of 94.9% on this pressure setting. Arousals During the diagnostic portion of the study, there were a total of 63 arousals for an arousal index of 25.4.? There were 4 respiratory arousals for an index of 1.6. There were 29 periodic limb movement arousals for an index of 11.7.? There were 1 isolated limb movement arousals for an index of 0.4. There were 29 spontaneous arousals for an index of 11.7. During the treatment portion of the study, there were a total of 56 arousals for an index of 33.1.? There were 1 respiratory arousals for an index of 0.6. There were 3 periodic limb movement arousals for an index of 1.8.? There were 5 isolated limb movement arousals for an index of 3.0. There were 47 spontaneous arousals for an index of 27.8. Periodic Limb Movements During the diagnostic portion of the study, the patient had 12 isolated limb movements with an index of 4.8. The patient had 317 periodic limb movements with an index of 127.7, which is elevated (normal <15). The patient had a total of 329 limb movements with a total limb movement index of 132.5. During the treatment portion of the study, the patient had 13 isolated limb movements with an index of 7.7. The patient had 17 periodic limb movements with an index of 10.0. The patient had a total of 30 limb movements with a total limb movement index of 17.7. Oximetry Data During the diagnostic portion of the study, the patient had an average oxygen saturation of 94.1% in wake with a minimum oxygen saturation of 76% and a maximum oxygen saturation of 98%. The patient had an average oxygen saturation of 93.1% in sleep with a minimum oxygen saturation of 84.0% and a maximum oxygen saturation of 97.0%. The patient had 30 oxygen desaturations resulting in an Oxygen Desaturation Index of 12.1. The patient spent 0.8 minutes, 0.4% of total sleep time with an oxygen saturation less than 88%. During the treatment portion of the study, the patient had an average oxygen saturation of 94.1% in wake with a minimum oxygen saturation of 91.0% and a maximum oxygen saturation of 98.0%. The patient had an average oxygen saturation of 93.5% in sleep with a minimum oxygen saturation of 91.0% and a maximum oxygen saturation of 96.0%. The patient had 11 oxygen desaturations resulting in an Oxygen Desaturation Index of 6.5. The patient spent 0 minutes of total sleep time with an oxygen saturation less than 88%. Snoring Profile Mild snoring was present in the baseline portion of the study. The snoring resolved once the patient was titrated to CPAP 5 cm H2O. Cardiac Profile The EKG lead showed normal sinus rhythm with frequent PVCs and intermittent bigeminy/trigeminy. During the diagnostic portion of the study, the average pulse rate was 59.2 bpm.? The minimum pulse rate was 49.0 bpm. The maximum pulse rate was 94.0 bpm. During the treatment portion of the study, the average pulse rate was 55.7 bpm.? The minimum pulse rate was 48.0 bpm. The maximum pulse rate was 94.0 bpm. EEG Profile No signs of seizure activity seen. Assessment and Plan Assessment and Plan (1) MARIA ISABEL (obstructive sleep apnea): Code(s): G47.33 - Obstructive sleep apnea (adult) (pediatric) Status: Acute Assessment and Plan: In the baseline portion of the study, the patient had an overall AHI of 7.2 with desaturation down to 84%. This is consistent with mild sleep apnea. Due to his hypertension, he qualifies for treatment. The patient was started on CPAP 4 cm H2O and titrated to CPAP 8 cm H2O due to hypopneas. I recommend that the patient be prescribed CPAP 7 cm H2O, size medium F&P Solo nasal pillows, CPAP filters/heated tubing and heated humidity. This should be used with all episodes of sleep.? Compliance should be reviewed within 31-90 days of starting therapy for usage greater than 4 hours per night greater than 70% of the nights. The patient should be asked about symptoms such as?excessive daytime sleepiness, quality of sleep, decreased nocturia, increased?mental functioning such as memory, mood, and concentration. Data The data obtained during this sleep study is adequate for interpretation. Certification This sleep study has been reviewed by a board certified sleep medicine physician.
[2025-11-09 12:27] VITALS: BMI 27.0
== END 2025-10-18 07:06 | disposition home or self-care (01) ==
PROVIDERS: PCP Family Medicine; Visit Provider Nurse Practitioner Family
DX: G47.30 Sleep apnea, unspecified (principal); G47.33 Obstructive sleep apnea (adult) (pediatric)
CPT/HCPCS: 95811